=== PATIENT | female | born 1990 | race Caucasian/White ===

== ENCOUNTER 2017-01-17 22:42 | Emergency (ER) | payer BC, OTHER ==
[~2017-01-17] VITALS: Ht 172.7 cm; Wt 124.7 kg
[~2017-01-17 22:42] MED LIST: /AUGM25TA OR; VICO5TAB OR
[2017-01-17 22:43] VITALS: BP 163/90
[2017-01-17] MEDS ORDERED: AMOX875T (22:52)
[2017-01-17] MEDS ORDERED: OMEP20CA3 (22:52)
[2017-01-17] MEDS ORDERED: LEVOTAB10 (22:52)
[2017-01-18] MEDS ORDERED: IBUPROFEN 800 MG TAB PO ONE (01:45)
[2017-01-18] MEDS ORDERED: methylPREDNISolone INJ 125 MG/2 ML VIAL (J2930) IM ONE (01:45)
[2017-01-18] MEDS ORDERED: ONDANSETRON 4 MG ORAL DISINTEGRATING TAB (S0181) PO ONE (01:45)
[2017-01-18] MEDS: MAGIC MOUTHWASH SUSPENSION BTL SS PRN ×2 (02:36→02:38)
[2017-01-18] MEDS ORDERED: PRED20TA PO (02:39)
[2017-01-18] MEDS ORDERED: ZOFR4TAB3 PO (02:40)
== END 2017-01-18 02:46 | disposition home or self-care (01) ==
LOC: M ED 01-18 01:08
DX: J02.0 Streptococcal pharyngitis (principal); R50.9 Fever, unspecified; M79.1 Myalgia; Z79.899 Other long term (current) drug therapy; Z88.1 Allergy status to other antibiotic agents
CPT/HCPCS: 87804; 96372; 99281; J2930

== ENCOUNTER → 2017-03-03 | Outpatient (CLI) | payer OTHER ==
[~2017-03-03] MED LIST changes: +AMOX875T; +LEVOTAB10; +OMEP20CA3; +PRED20TA PO; +ZOFR4TAB3 PO
[2017-03-03 11:40] LABS: PROGESTERONE 1.6 NG/ML
== END ==
LOC: M LAB 09:59
PROVIDERS: ATTEND Physician Assistant Medical
DX: Z01.89 Encounter for other specified special examinations (principal)

== ENCOUNTER → 2017-07-15 | Outpatient (CLI) | payer OTHER | LOC: M LAB 00:55 | PROVIDERS: ATTEND Nurse Practitioner Women's Health | DX: R94.7 Abnormal results of other endocrine function studies (principal) ==

== ENCOUNTER → 2017-08-09 | Outpatient (CLI) | payer OTHER | LOC: M LAB 13:47 | PROVIDERS: ATTEND Nurse Practitioner Women's Health | DX: N91.2 Amenorrhea, unspecified (principal) ==

== ENCOUNTER → 2017-08-17 | Outpatient (CLI) | payer OTHER ==
[2017-08-22 00:06] LABS: SEX HORMONE BINDING GLOBULIN 33.2 nmol/L (24.6-122.0)
== END ==
LOC: M LAB 17:28
PROVIDERS: ATTEND Nurse Practitioner Women's Health
DX: E28.2 Polycystic ovarian syndrome (principal)

== ENCOUNTER → 2017-10-15 | Outpatient (REF) | payer OTHER | LOC: M LAB REF 16:46 | PROVIDERS: ATTEND Physician Assistant | DX: R30.0 Dysuria (principal) ==

== ENCOUNTER → 2018-10-02 | Outpatient (CLI) | payer BC | LOC: M SLEEP 20:00 | DX: G47.33 Obstructive sleep apnea (adult) (pediatric) (principal) | CPT/HCPCS: 95810 ==

== ENCOUNTER → 2018-11-04 | Outpatient (CLI) | payer BC ==
[~2018-11-04] MED LIST changes: +ZOFR4TAB14 PO; -ZOFR4TAB3 PO
--- NOTE | 2018-11-16 07:59 | SLEEPCENT ---
DATE OF PROCEDURE: 11/04/2018 ORDERING PROVIDER: DR. Kendra Valle, copy to Drea Abraham NP INTERPRETATION: Nocturnal polysomnography was performed for the titration of pressure therapy in this patient with obstructive sleep apnea syndrome. Apnea-hypopnea index of 13.4. For testing a [employer] full face mask of small size was used, 4 cm of water pressure were applied to the circuit and the lights were extinguished. 8 hours and 26 minutes of data were reviewed. There were 458 minutes of sleep identified. Sleep latency was normal at 10 minutes. Rapid eye movement (REM) latency was delayed at 126 minutes. Sleep architecture improved with optimal pressure therapy. There were four REM cycles noted. Overall sleep efficiency was 92%. The electrocardiogram showed a sinus rhythm with an average heart rate of 66 beats per minute. EEG showed fairly normal waveforms for awake and sleep. Respiratory events were best palliated with CPAP at a pressure of +7 and remaining measures of sleep physiology were normal. IMPRESSION: Obstructive sleep apnea syndrome (G47.33) RECOMMENDATIONS: Nightly use of pressure therapy 7 cm of water.
== END ==
LOC: M SLEEP 19:35
PROVIDERS: ATTEND Internal Medicine Pulmonary Disease
DX: G47.33 Obstructive sleep apnea (adult) (pediatric) (principal)

== ENCOUNTER 2018-12-16 12:03 | Emergency (ER) | payer BC, OTHER ==
[~2018-12-16] VITALS: Ht 175.3 cm; Wt 134.1 kg
[2018-12-16] MEDS ORDERED: prenatal PO (12:20)
[2018-12-16] MEDS ORDERED: LABE10TAB PO (12:20)
[2018-12-16] MEDS ORDERED: PROAAER10 PO (12:20)
[2018-12-16] MEDS ORDERED: PROG100C PO (12:20)
[2018-12-16] MEDS ORDERED: OMEP40CA2 PO (12:20)
[2018-12-16 13:37] LABS: BASO # 0.1 10^3/uL (0.0-0.2); BASO % 0.3 % (0.0-1.0); EOS # 0.1 10^3/uL (0.0-0.50); EOS % 0.8 % (0.0-3.0); HEMATOCRIT 37.7 % (36.0-47.0); HEMOGLOBIN 11.9 g/dl (12.0-15.5); LYMPH # 1.9 10^3/uL (1.5-6.5); LYMPH % 12.5 % (24.0-44.0); MEAN CORPUSCULAR HEMOGLOBIN 28.7 pg (27.0-33.0); MEAN CORPUSCULAR HGB CONC 31.6 g/dl (32.0-36.5); MEAN CORPUSCULAR VOLUME 90.8 fl (80.0-96.0); MONO # 0.9 10^3/uL (0.0-0.8); MONO % 6.1 % (0.0-5.0); NEUTROPHILS % 79.7 % (36.0-66.0); PLATELET COUNT, AUTOMATED 304 10^3/uL (150-450); RED BLOOD COUNT 4.15 10^6/uL (4.00-5.40); WHITE BLOOD COUNT 15.1 10^3/uL (4.0-10.0)
--- NOTE | 2018-12-16 14:40 | REP ---
PELVIC ULTRASOUND: Real-time sonographic evaluation of the pelvis was performed utilizing transabdominal and endovaginal technique. The uterus measures 8.0 x 3.9 x 5.0 cm. Endometrial thickness is 20 mm with tiny cystic areas seen in the endometrial echo complex. There is no gestational sac seen in the endometrial canal. Right ovary measures 2.6 x 1.8 x 1.8 cm and left ovary 3.4 x 2.6 x 2.7 cm. A complex cystic structure in the left ovary may represent a complex corpus luteum, 2.1 x 1.5 x 1.6 cm. There is no torsion of the either ovary, resistive index right ovary 0.51 and left ovary 0.59. Tubular structure above the left ovary could represent a hydrosalpinx. Differential diagnosis would include very early intrauterine , missed AB or ectopic , suggest correlation with serial quantitaive beta HCG values and followup ultrasound as necessary. Electronically Signed by Dhaval Cummins MD 12/16/2018 04:03 P
[2018-12-16 15:10] VITALS: BP 150/89
== END 2018-12-16 15:27 | disposition home or self-care (01) ==
LOC: M ED 12:03 → EDBD 12:03 → M ED 15:27
DX: O9A.211 Injury, poisoning and certain other consequences of external causes complicating pregnancy, first trimester (principal); S40.012A Contusion of left shoulder, initial encounter; V49.40XA Driver injured in collision with unspecified motor vehicles in traffic accident, initial encounter; Y92.410 Unspecified street and highway as the place of occurrence of the external cause; O10.911 Unspecified pre-existing hypertension complicating pregnancy, first trimester; O99.341 Other mental disorders complicating pregnancy, first trimester; F41.9 Anxiety disorder, unspecified; Z3A.01 Less than 8 weeks gestation of pregnancy; Z88.1 Allergy status to other antibiotic agents; Z79.899 Other long term (current) drug therapy

== ENCOUNTER → 2018-12-18 | Outpatient (REF) | payer OTHER ==
[~2018-12-18] MED LIST changes: +LABE10TAB PO; +OMEP40CA2 PO; +PROAAER10 PO; +PROG100C PO; +prenatal PO
== END ==
LOC: M LAB REF 11:30
PROVIDERS: ATTEND Emergency Medicine
DX: N93.9 Abnormal uterine and vaginal bleeding, unspecified (principal)

== ENCOUNTER → 2018-12-20 | Outpatient (REF) | payer BC | LOC: M LAB REF 13:19 | DX: O36.80X0 Pregnancy with inconclusive fetal viability, not applicable or unspecified (principal) ==

== ENCOUNTER → 2019-01-16 | Outpatient (REF) | payer BC ==
[2019-01-16 19:18] LABS: HEMOGLOBIN 11.6 g/dl (12.0-15.5); MEAN CORPUSCULAR HEMOGLOBIN 28.5 pg (27.0-33.0); MEAN CORPUSCULAR HGB CONC 32.2 g/dl (32.0-36.5); MEAN CORPUSCULAR VOLUME 88.5 fl (80.0-96.0); PLATELET COUNT, AUTOMATED 286 10^3/uL (150-450); RED BLOOD COUNT 4.07 10^6/uL (4.00-5.40)
[2019-01-16 19:49] LABS: HEMOGLOBIN A1c 5.2 %
[2019-01-16 20:29] LABS: ALBUMIN 3.5 GM/DL (3.2-5.2); ALT/SGPT 35 U/L (12-78); BILIRUBIN,TOTAL 0.2 MG/DL (0.2-1.0); BLOOD UREA NITROGEN 8 MG/DL (7-18); CALCIUM LEVEL 9.1 MG/DL (8.5-10.1); CARBON DIOXIDE LEVEL 22 MEQ/L (21-32); CHLORIDE LEVEL 104 MEQ/L (98-107); CREATININE FOR GFR 0.65 MG/DL (0.55-1.30); GLOMERULAR FILTRATION RATE > 60.0 (>60); GLUCOSE, FASTING 84 MG/DL (70-100); HCG, SERUM QUANTITATIVE 56833 MIU/ML; POTASSIUM SERUM 3.5 MEQ/L (3.5-5.1); RUBELLA IgG QUALITATIVE IMMUNE (IMMUNE); SODIUM LEVEL 138 MEQ/L (136-145); TOTAL PROTEIN 7.2 GM/DL (6.4-8.2)
[2019-01-16 20:37] LABS: HIV 1&2 SCREEN CENTAUR NEGATIVE (NEGATIVE)
[2019-01-18 09:54] LABS: HEPATITIS C VIRUS ABY INDEX < 0.0 INDEX (<0.8)
== END ==
LOC: M LAB REF 17:00
PROVIDERS: ATTEND Nurse Practitioner Women's Health
DX: Z34.81 Encounter for supervision of other normal pregnancy, first trimester (principal)

== ENCOUNTER → 2019-02-13 | Outpatient (REF) | payer BC ==
[2019-02-13 20:36] LABS: CHLAMYDIA DNA AMPLIFICATION POSITIVE (NEGATIVE); GC DNA AMPLIFICATION NEGATIVE (NEGATIVE)
== END ==
LOC: M LAB REF 16:35
PROVIDERS: ATTEND Nurse Practitioner Women's Health
DX: Z34.81 Encounter for supervision of other normal pregnancy, first trimester (principal)

== ENCOUNTER 2019-03-06 12:06 | Emergency (ER) | payer BC ==
[~2019-03-06] VITALS: Ht 172.7 cm; Wt 133.6 kg
[2019-03-06] MEDS ORDERED: ASPI81TA85 PO (12:16)
[2019-03-06] MEDS ORDERED: SERT25TA85 PO (12:16)
[2019-03-06] MEDS ORDERED: xyzal (12:17)
[2019-03-06] MEDS ORDERED: ACETAMINOPHEN 500 MG TAB PO ONE (13:15)
[2019-03-06 14:24] LABS: BASO % 0.3 % (0.0-1.0); EOS # 0.1 10^3/uL (0.0-0.50); HEMATOCRIT 37.1 % (36.0-47.0); HEMOGLOBIN 11.9 g/dl (12.0-15.5); LYMPH # 1.9 10^3/uL (1.5-6.5); LYMPH % 16.1 % (24.0-44.0); MEAN CORPUSCULAR HEMOGLOBIN 28.5 pg (27.0-33.0); MEAN CORPUSCULAR HGB CONC 32.1 g/dl (32.0-36.5); MEAN CORPUSCULAR VOLUME 88.8 fl (80.0-96.0); MONO # 0.6 10^3/uL (0.0-0.8); MONO % 5.1 % (0.0-5.0); NEUTROPHILS # 9.3 10^3/uL (1.8-7.7); NEUTROPHILS % 77.1 % (36.0-66.0); PLATELET COUNT, AUTOMATED 294 10^3/uL (150-450); RED BLOOD COUNT 4.18 10^6/uL (4.00-5.40); WHITE BLOOD COUNT 12.1 10^3/uL (4.0-10.0)
[2019-03-06 14:49] LABS: BLOOD UREA NITROGEN 6 MG/DL (7-18); CALCIUM LEVEL 9.3 MG/DL (8.5-10.1); CARBON DIOXIDE LEVEL 23 MEQ/L (21-32); CHLORIDE LEVEL 108 MEQ/L (98-107); CREATININE FOR GFR 0.57 MG/DL (0.55-1.30); GLOMERULAR FILTRATION RATE > 60.0 (>60); GLUCOSE, FASTING 85 MG/DL (70-100); POTASSIUM SERUM 3.9 MEQ/L (3.5-5.1); SODIUM LEVEL 138 MEQ/L (136-145)
[2019-03-06] MEDS ORDERED: PHENYLEPHRINE 2.5% OPHTH SOL 2ML OU ONE (15:15)
[2019-03-06] MEDS: MORPHINE 4 MG/ML 1ML VIAL/SYRINGE (J2270) IV ONE ×4 (16:00→20:01)
--- NOTE | 2019-03-06 17:07 | REP ---
MR Brain without contrast HISTORY: Blurred vision COMPARISON : None There are no areas of abnormal signal intensity in the brain. There is no intraparenchymal hemorrhage, infarct, mass or midline shift. The ventricular system is normal in appearance. There is no extra cerebral collection. Mucosal thickening is present in the sphenoid sinus. IMPRESSION: There is no intracranial lesion. Electronically Signed by Tay Baum MD 03/06/2019 04:58 P
--- NOTE | 2019-03-06 17:10 | REP ---
MRA Brain without contrast History: Blurred vision 3-D phase contrast MR angiography was performed with a velocity encoding of 10 cm/sec. There are no filling defects in the deep venous system or dural sinuses. There is narrowing of the distal transverse sinuses. This may represent stenosis versus flow related phenomenon. Impression 1. There is no deep venous thrombosis. 2. There is narrowing of the distal transverse sinuses that may represent stenosis versus flow related phenomenon. Electronically Signed by Tay Baum MD 03/06/2019 05:02 P
[2019-03-06 19:51] VITALS: BP 135/76
--- NOTE | 2019-03-07 11:23 | ER ---
DATE OF CONSULTATION: 03/06/2019 CC: Headaches HPI: 29-year-old female who is 16 weeks who presented to the emergency department today at the request of her marketing secretary who examined her via undilated photography and was noted to have bilateral optic nerve swelling. The patient relates a history of at greater than one week of positional headaches, worse while supine, to the point where she cannot lay flat at all. She also tells me that she has pulsatile tinnitus which has been increasingly worse over the past one week. She denies any transient visual obscurations or visual loss. She denies vomiting. No aura. She has a history of intermittent diplopia as well. She has long standing history of headaches, but these apparently are worse. PAST MEDICAL HISTORY: She is 16 weeks . She has a history of hypertension and was recently increased on her dose of labetalol from 100 to 200 mg twice a day. PAST OCULAR HISTORY: She is a contact lens wearer. Also has prescription eye glasses and uses Artificial Tears as needed. Her blood pressure in the emergency department was 147/92 and 146/78. PHYSICAL EXAMINATION: Corrected glasses visual acuity of 20/25 in the right eye and 20/30 in the left eye. There is no APD. She has mild lateral gaze restriction bilaterally. Color is 10/10. IOP is soft by finger palpation. Slit lamp examination revealed lids, lashes and adnexa within normal limits OU. Conjunctivae and sclerae white and quiet OU. Cornea is clear OU. Lens is clear OU. Dilated fundus exam with a 90 diopter lens with 2% phenylephrine instilled shows a cup-to-disc ratio of 0.1 in the right eye and 0.1 in the left eye with grade IV papilledema with multiple hemorrhages bilaterally. The macula appears flat without macular star and the vessels are within normal limit and the periphery is within normal limit. Imaging: There is no mass. She has a narrow distal transverse sinus and no evidence of a venous thrombosis. ASSESSMENT AND PLAN: 1. Grade IV papilledema. 2. Distal transverse sinus narrowing. This patient needs a stat MRI and MRV, which was already performed and the results are above. Recommend immediate lumbar puncture for a diagnostic and therapeutic effect. After that, treatment per neurology. Consider neurosurgical consultation and even transfer to a tertiary care facility. She should followup with ophthalmology upon discharge for visual field and optic nerve monitoring. The plan was discussed with Dr. Wetterhahn, admitting physician, who recommended the patient be sent to [facility] for immediate assessment and intervention as necessary, which I agreed with. DONATO
--- NOTE | 2019-03-07 20:49 | CR ---
DATE OF CONSULTATION: 03/06/2019 REQUESTING PHYSICIAN: Dr. Dilip Cummins in the Emergency Room. HISTORY OF PRESENT ILLNESS: Angi Garibay was seen in the emergency room. The hospitalist group was consulted for admission. The patient has been sent in by Dr. Anglin her guest relation officer for concern about papilledema. She had been having visual changes and headache that had been aggressively worse since five days ago. Today her vision was at its worst and her headache was at its worst. Dr. Anglin felt papilledema. The patient was sent to the emergency room. Neurology was consulted. MRI of the brain was advised to rule out sphenoid sinus thrombosis. MRI was done and this was not present. The patient was seen in the emergency room by Dr. Rigo Velasquez from ophthalmology. He found Grade 4 papilledema of the affected eye with hemorrhages. He recommended stat lumbar puncture. He had discussed the case and felt that lumbar puncture needed to be done immediately. Unfortunately interventional radiology was not available by the time the MRI came back and a lumbar puncture could not be performed to determine openings pressures and relieve the increased pressure on the optic curve until tomorrow. I am concerned this delay could worsen the outcome. I spoke with Dr. Yang from neurology on three occasions this evening and with the patient's worsening headache, grade 4 papilledema with hemorrhages and unavailability of lumbar puncture at [facility], he recommended transfer to a tertiary care center feeling she [facility] well [facility] Discussed with the patient who was requesting transfer. She said she did not feel comfortable waiting until tomorrow in any case and after hearing about my discussions with opthalmology and neurology, agreed with the transfer. In order to reduce the risk of poor outcome from unrelieved, increased intracranial pressure I have recommended to transfer the patient to a tertiary center where she can have diagnostic and therapeutic lumbar puncture and/or neurosurgical consultation this evening. This has been discussed with the physician's assistant therapy aide (BEN) who picked up the case in the emergency room, as well as Dr. Cummins who is supervising.
== END 2019-03-06 20:02 | disposition short-term general hospital (02) ==
LOC: M ED 12:06
DX: O10.912 Unspecified pre-existing hypertension complicating pregnancy, second trimester (principal); O99.352 Diseases of the nervous system complicating pregnancy, second trimester; G93.2 Benign intracranial hypertension; H47.11 Papilledema associated with increased intracranial pressure; R51 Headache; Z3A.16 16 weeks gestation of pregnancy; Z88.1 Allergy status to other antibiotic agents; Z79.899 Other long term (current) drug therapy; Z79.82 Long term (current) use of aspirin
CPT/HCPCS: 70544; 70551; 80048; 85025; 96374; 96376; 99284; J2270

== ENCOUNTER 2019-03-07 11:45 | Emergency (ER) | payer BC ==
[~2019-03-07] VITALS: Ht 172.7 cm; Wt 134.1 kg
[~2019-03-07 11:45] MED LIST changes: +ASPI81TA85 PO; +SERT25TA85 PO; +xyzal
[2019-03-07] MEDS ORDERED: METOCLOPRAMIDE INJ 10MG/2ML VIAL (J2765) IV ONE (12:15)
[2019-03-07] MEDS ORDERED: NS 1,000 ML IV SCH (12:15)
[2019-03-07] MEDS ORDERED: MORPHINE 2 MG/ML 1ML SYRINGE (J2270) IV ONE (13:30)
[2019-03-07 15:41] LABS: APPEARANCE, CSF CLEAR (CLEAR); COLOR, CSF COLORLESS (COLORLESS); CSF TUBE# CELL CNT TUBE 1
[2019-03-07 15:42] LABS: APPEARANCE, CSF CLEAR (CLEAR); COLOR, CSF COLORLESS (COLORLESS); CSF TUBE# CELL CNT TUBE 4
[2019-03-07 15:50] LABS: SOURCE, BODY FLUID GLUCOSE OTHER; SOURCE, BODY FLUID TOT PROTEIN OTHER; TOTAL PROTEIN, BODY FLUID 21.8 G/DL (NOT ESTABLISHED)
[2019-03-07 17:23] VITALS: BP 128/64
--- NOTE | 2019-03-07 19:06 | REP ---
Lumbar puncture with cerebrospinal fluid manometry and cerebrospinal fluid withdrawal: Fluoroscopic guidance. History: Pseudotumor cerebri with progressive papilledema and progressive ophthalmic findings. Declining vision. Emergency lumbar puncture. Three failed attempts at non fluoroscopically guided lumbar puncture were carried out the previous day. 16 weeks gestation. Procedure: Informed consent was obtained. The nature of the procedure was explained to the patient and its risks including bleeding, infection, injury to neural elements, post spinal tap headache, and scatter radiation to the fetus were discussed. The patient indicated understanding and wished to proceed. The patient was placed prone on the fluoroscopy table with circumferential lower abdominal and pelvic shielding. The patient safety time-out was articulated and agreed upon. The L1-2 interspinous level was localized and confirmed fluoroscopically and the skin was marked dorsally at this level in the midline. The skin was prepped and draped in the usual fashion with benign. 3 ml of 1% lidocaine was utilized for local anesthetic. An 18 gauge 3.5 inch spinal needle was advanced without significant difficulty into the cerebrospinal space at the L1-2 interspinous level. Clear freely flowing cerebrospinal fluid was retrieved. Initial opening pressure was quite high measured by manometry and 54 cm of water. A total of 37 ml of cerebrospinal fluid was withdrawn gently and the manometry was re-measured at 10 cm of water. The needle was withdrawn. Cerebrospinal fluid was submitted to the lab for routine analysis. The patient tolerated procedure well. Impression: Fluoroscopically guided lumbar puncture. CSF manometry documents elevated opening pressure 54 cm of water. 37 ml of cerebrospinal fluid was withdrawn. Closing pressure was normal. Fluoroscopy time was 0.1 minutes. Electronically Signed by Davon Munoz MD 03/07/2019 08:23 P
== END 2019-03-07 17:23 | disposition home or self-care (01) ==
LOC: M ED 11:45
DX: G93.2 Benign intracranial hypertension (principal); J45.909 Unspecified asthma, uncomplicated; I10 Essential (primary) hypertension; Z79.899 Other long term (current) drug therapy; Z79.82 Long term (current) use of aspirin; Z88.8 Allergy status to other drugs, medicaments and biological substances
CPT/HCPCS: 77002; 82945; 84157; 87070; 87205; 89050; 96361; 96374; 99284; J2765

== ENCOUNTER 2019-03-10 09:42 | Emergency (ER) | payer BC ==
[~2019-03-10] VITALS: Ht 172.7 cm; Wt 131.8 kg
[2019-03-10 10:31] LABS: BASO % 0.2 % (0.0-1.0); EOS # 0.1 10^3/uL (0.0-0.50); EOS % 1.1 % (0.0-3.0); HEMATOCRIT 35.7 % (36.0-47.0); LYMPH # 1.9 10^3/uL (1.5-6.5); LYMPH % 20.4 % (24.0-44.0); MEAN CORPUSCULAR HEMOGLOBIN 28.9 pg (27.0-33.0); MEAN CORPUSCULAR HGB CONC 33.6 g/dl (32.0-36.5); MONO # 0.6 10^3/uL (0.0-0.8); MONO % 6.7 % (0.0-5.0); NEUTROPHILS # 6.7 10^3/uL (1.8-7.7); NEUTROPHILS % 71.1 % (36.0-66.0); PLATELET COUNT, AUTOMATED 269 10^3/uL (150-450); RED BLOOD COUNT 4.15 10^6/uL (4.00-5.40); WHITE BLOOD COUNT 9.5 10^3/uL (4.0-10.0)
[2019-03-10] MEDS ORDERED: NS 1,000 ML IV ONE (10:45)
[2019-03-10] MEDS ORDERED: METOCLOPRAMIDE INJ 10MG/2ML VIAL (J2765) IV ONE (10:45)
[2019-03-10 11:02] LABS: ALBUMIN 3.1 GM/DL (3.2-5.2); ALT/SGPT 21 U/L (12-78); BILIRUBIN,TOTAL 0.2 MG/DL (0.2-1.0); BLOOD UREA NITROGEN 5 MG/DL (7-18); CALCIUM LEVEL 9.1 MG/DL (8.5-10.1); CARBON DIOXIDE LEVEL 24 MEQ/L (21-32); CHLORIDE LEVEL 107 MEQ/L (98-107); CREATININE FOR GFR 0.66 MG/DL (0.55-1.30); GLOMERULAR FILTRATION RATE > 60.0 (>60); GLUCOSE, FASTING 97 MG/DL (70-100); POTASSIUM SERUM 3.6 MEQ/L (3.5-5.1); SODIUM LEVEL 138 MEQ/L (136-145); TOTAL PROTEIN 7.8 GM/DL (6.4-8.2)
[2019-03-10 15:02] VITALS: BP 125/73
== END 2019-03-10 15:08 | disposition short-term general hospital (02) ==
LOC: M ED 09:42
DX: O99.89 Other specified diseases and conditions complicating pregnancy, childbirth and the puerperium (principal); G97.1 Other reaction to spinal and lumbar puncture; G93.2 Benign intracranial hypertension; O99.619 Diseases of the digestive system complicating pregnancy, unspecified trimester; O13.9 Gestational [pregnancy-induced] hypertension without significant proteinuria, unspecified trimester; O99.340 Other mental disorders complicating pregnancy, unspecified trimester; Z79.82 Long term (current) use of aspirin; Z79.899 Other long term (current) drug therapy; Z88.1 Allergy status to other antibiotic agents
CPT/HCPCS: 36415; 80053; 85025; 96361; 96374; 99285; J2765

== ENCOUNTER → 2019-04-16 | Outpatient (REF) | payer BC ==
[2019-04-16 10:13] LABS: CREATININE 24 HOUR, URINE 1276.8 MG/24HR (600-1800); CREATININE, URINE 39.9 MG/DL; TOTAL PROTEIN 24 HOUR URINE 268.8 MG/24HR (50-150); URINE TOTAL PROTEIN 8.4 MG/DL (0-12)
== END ==
LOC: M LAB REF 09:39
PROVIDERS: ATTEND Obstetrics & Gynecology
DX: O99.89 Other specified diseases and conditions complicating pregnancy, childbirth and the puerperium (principal)

== ENCOUNTER → 2019-04-17 | Outpatient (CLI) | payer BC ==
[2019-04-17 11:04] LABS: HEMATOCRIT 34.3 % (36.0-47.0); HEMOGLOBIN 11.1 g/dl (12.0-15.5); MEAN CORPUSCULAR HEMOGLOBIN 29.8 pg (27.0-33.0); MEAN CORPUSCULAR HGB CONC 32.4 g/dl (32.0-36.5); MEAN CORPUSCULAR VOLUME 92.2 fl (80.0-96.0); PLATELET COUNT, AUTOMATED 278 10^3/uL (150-450); RED BLOOD COUNT 3.72 10^6/uL (4.00-5.40); WHITE BLOOD COUNT 9.9 10^3/uL (4.0-10.0)
[2019-04-17 11:30] LABS: ALT/SGPT 13 U/L (12-78); BILIRUBIN,TOTAL 0.2 MG/DL (0.2-1.0); CREATININE FOR GFR 0.64 MG/DL (0.55-1.30); GLOMERULAR FILTRATION RATE > 60.0 (>60); GLUCOSE CHALLENGE TEST 1 HOUR 91 MG/DL (LESS THAN 140); LDH LACTATE DEHYDROGENASE 135 U/L (84-246); URIC ACID 3.6 MG/DL (2.6-6.0)
== END ==
LOC: M LAB 09:05
PROVIDERS: ATTEND Obstetrics & Gynecology
DX: O99.89 Other specified diseases and conditions complicating pregnancy, childbirth and the puerperium (principal)

== ENCOUNTER → 2019-04-20 | Outpatient (CLI) | payer BC ==
--- NOTE | 2019-04-21 07:02 | ECHO ---
DATE OF PROCEDURE: 04/20/2019 DATE OF : 1990 AGE: 29 GENDER: Female. HEIGHT: 68 inches. WEIGHT: 287 pounds. BODY SURFACE AREA: 2.38 meters squared . OUTPATIENT REFERRING PHYSICIAN: Dr. Alvarez Flores. INDICATION: Pulmonary hypertension. MEASUREMENTS 2-D Measurements: RV: 4.4 cm LV: 5.2 cm Septum: 1.3 cm Posterior wall: 1.3 cm Aortic root: 2.8 cm LA: 4.3 cm LVEF: 65% Doppler Measurements: AV: 1.49 m/s LVOT: 1.1 m/s LVOT diameter: 2.3 cm MV - E 88 A 67 EA ratio 1.3 Early mitral deceleration time: 176 ms E prime: 7.3 A prime: 10 E/E prime ratio: 12 PV: 1.1 m/s Pulmonary artery acceleration time: 150 ms PASP: 18 mmHg IVC: 2.0 cm COMMENTS: Normal sinus rhythm without intraventricular conduction disturbance. M-mode and two-dimensional echocardiography was performed with pulsed, continuous wave, color flow and tissue Doppler studies. Mild concentric left ventricle hypertrophy with normal wall motion. Mildly dilated left atrium with currently normal estimated left ventricular diastolic function and mean left atrial pressure. Right heart chamber sizes upper limits of normal with normal wall motion and currently normal estimated pulmonary arterial pressure. Normal IVC size and collapse against an elevated central venous pressure. Normal appearing and functioning valvular structures. No apparent intracardiac mass or pericardial effusion. Normal aortic root size. MTDD
== END ==
LOC: M CARPUL 08:10
PROVIDERS: ATTEND Obstetrics & Gynecology
DX: I27.24 Chronic thromboembolic pulmonary hypertension (principal)

== ENCOUNTER → 2019-04-26 | Outpatient (CLI) | payer BC ==
--- NOTE | 2019-04-27 08:20 | ECGEPIP ---
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
== END ==
LOC: M EKG 14:12
PROVIDERS: ATTEND Obstetrics & Gynecology
DX: Z34.82 Encounter for supervision of other normal pregnancy, second trimester (principal); Z3A.00 Weeks of gestation of pregnancy not specified

== ENCOUNTER → 2019-05-29 | Outpatient (CLI) | payer BC ==
[~2019-05-29] MED LIST changes: +ACET50CA PO; +BUTA1CAP PO; +C 50TAB PO; +DIAMOX; +HYDR-4571 PO; +MAPA500T2 PO; +MM S100C PO; +OMEP1CAP73; -OMEP20CA3; -OMEP40CA2 PO; +OMEP40CA97 PO; +ONDA-83 PO; +POTA10TA14 PO; +PREN1CHW6 PO; -PROG100C PO; +PROG1CAP8 PO
[2019-05-29 13:40] LABS: HEMATOCRIT 34.7 % (36.0-47.0); HEMOGLOBIN 11.2 g/dl (12.0-15.5); MEAN CORPUSCULAR HEMOGLOBIN 29.2 pg (27.0-33.0); MEAN CORPUSCULAR HGB CONC 32.3 g/dl (32.0-36.5); MEAN CORPUSCULAR VOLUME 90.4 fl (80.0-96.0); PLATELET COUNT, AUTOMATED 278 10^3/uL (150-450); RED BLOOD COUNT 3.84 10^6/uL (4.00-5.40); WHITE BLOOD COUNT 11.9 10^3/uL (4.0-10.0)
== END ==
LOC: M LAB 11:37
PROVIDERS: ATTEND Obstetrics & Gynecology
DX: Z34.82 Encounter for supervision of other normal pregnancy, second trimester (principal)

== ENCOUNTER → 2019-05-30 | Outpatient (REF) | payer BC ==
[~2019-05-30] MED LIST changes: -ACET50CA PO; -BUTA1CAP PO; -C 50TAB PO; -DIAMOX; -HYDR-4571 PO; -MAPA500T2 PO; -MM S100C PO; -OMEP1CAP73; +OMEP20CA4; +OMEP40CA2 PO; -OMEP40CA97 PO; -ONDA-83 PO; -POTA10TA14 PO; -PREN1CHW6 PO
== END ==
LOC: M LAB REF 12:28
PROVIDERS: ATTEND Obstetrics & Gynecology
DX: Z34.82 Encounter for supervision of other normal pregnancy, second trimester (principal)

== ENCOUNTER 2019-06-25 19:01 | Outpatient (CLI) | payer BC ==
[~2019-06-25] VITALS: Ht 172.7 cm; Wt 131.5 kg
[~2019-06-25 19:01] MED LIST changes: +OMEP1CAP73; -OMEP20CA4; -OMEP40CA2 PO; +OMEP40CA97 PO
[2019-06-25] MEDS ORDERED: PRED20TA PO (22:39)
[2019-06-25] MEDS ORDERED: DIAMOX (22:39)
[2019-06-25] MEDS ORDERED: PREN1CHW6 PO (23:52)
[2019-06-25] MEDS ORDERED: C 50TAB PO (23:52)
[2019-06-25] MEDS ORDERED: ACET50CA PO (23:52)
[2019-06-25] MEDS ORDERED: POTA10TA14 PO (23:52)
--- NOTE | 2019-07-26 10:17 | IPN ---
DATE OF SERVICE: 06/25/2019 Angi is a 29-year-old female who presented to emergency room with complaints of severe headache. She is a known patient with pseudo tumor cerebri who has had multiple spinal tap for this condition. She presented to the emergency room for a spinal tap. She is being followed by neurology, Dr. James's group. She was sent to labor and delivery in an error for monitoring after having a category 1 tracing. Given the patient's prior condition, she was recent back to the emergency room to be evaluated for the possible spinal tap and to be seen by neurology or possibly she transferred out. No further OB intervention was done. She did have a category 1 tracing and was transferred back to the emergency room. This was discussed with the emergency room physician.
[2019-07-30] MEDS ORDERED: ONDA-83 PO (17:17)
[2019-08-08] MEDS ORDERED: MM S100C PO (10:38)
== END 2019-06-25 20:04 | disposition other institution (70) ==
LOC: M LDO 19:01
PROVIDERS: ATTEND Obstetrics & Gynecology
DX: O26.893 Other specified pregnancy related conditions, third trimester (principal); R51 Headache; Z3A.31 31 weeks gestation of pregnancy; Z86.79 Personal history of other diseases of the circulatory system; O99.350 Diseases of the nervous system complicating pregnancy, unspecified trimester; G93.2 Benign intracranial hypertension; Z79.899 Other long term (current) drug therapy
CPT/HCPCS: 59025; G0378; G0463

== ENCOUNTER 2019-06-25 20:02 | Emergency (ER) | payer BC ==
[~2019-06-25] VITALS: Ht 172.7 cm; Wt 131.8 kg
[2019-06-25] MEDS ORDERED: diphenhydrAMINE INJ 50MG/ML VIAL (J1200) IV STA (20:29)
[2019-06-25] MEDS ORDERED: METOCLOPRAMIDE INJ 10MG/2ML VIAL (J2765) IV ONE (20:30)
[2019-06-25 20:55] LABS: HEMATOCRIT 34.5 % (36.0-47.0); MEAN CORPUSCULAR HEMOGLOBIN 29.3 pg (27.0-33.0); MEAN CORPUSCULAR HGB CONC 31.9 g/dl (32.0-36.5); MEAN CORPUSCULAR VOLUME 91.8 fl (80.0-96.0); PLATELET COUNT, AUTOMATED 282 10^3/uL (150-450); RED BLOOD COUNT 3.76 10^6/uL (4.00-5.40); WHITE BLOOD COUNT 15.6 10^3/uL (4.0-10.0)
[2019-06-25 21:17] LABS: ALBUMIN 2.7 GM/DL (3.2-5.2); ALT/SGPT 13 U/L (12-78); BILIRUBIN,DIRECT < 0.1 MG/DL (0.0-0.2); BILIRUBIN,TOTAL 0.1 MG/DL (0.2-1.0); BLOOD UREA NITROGEN 10 MG/DL (7-18); CALCIUM LEVEL 8.5 MG/DL (8.5-10.1); CARBON DIOXIDE LEVEL 19 MEQ/L (21-32); CHLORIDE LEVEL 114 MEQ/L (98-107); CREATININE FOR GFR 0.62 MG/DL (0.55-1.30); GLOMERULAR FILTRATION RATE > 60.0 (>60); GLUCOSE, FASTING 78 MG/DL (70-100); POTASSIUM SERUM 3.6 MEQ/L (3.5-5.1); SODIUM LEVEL 141 MEQ/L (136-145); TOTAL PROTEIN 6.2 GM/DL (6.4-8.2)
[2019-06-25] MEDS ORDERED: DIAMOX (22:39)
[2019-06-25] MEDS ORDERED: PRED20TA PO (22:39)
--- NOTE | 2019-06-25 23:26 | HPEPDOC ---
[facility] Medical History & Physical Vital Signs Vital Signs Date Time Temp Pulse Resp B/P (MAP) Pulse Ox O2 Delivery O2 Flow Rate FiO2 06/25/19 20:37 06/25/19 20:02 97.8 88 16 100 Room Air Laboratory Data Labs 24H Laboratory Tests 2 06/25/19 20:47: Nucleated Red Blood Cells % (auto) 0.0, Anion Gap 8, Glomerular Filtration Rate > 60.0, Calcium Level 8.5, Aspartate Amino Transf (AST/SGOT) 5L, Alanine Aminotransferase (ALT/SGPT) 13, Alkaline Phosphatase 89, Total Bilirubin 0.1L, Direct Bilirubin < 0.1, Total Protein 6.2L, Albumin 2.7L, Albumin/Globulin Ratio 0.77L CBC/BMP Laboratory Tests 06/25/19 20:47 Red Blood Count 3.76 L, Mean Corpuscular Volume 91.8, Mean Corpuscular Hemoglobin 29.3, Mean Corpuscular Hemoglobin Concent 31.9 L, Red Cell Distr ibution Width 13.0 Home Medications Scheduled Acetazolamide (Acetazolamide) 500 Mg Capsule.er, 1,000 MG PO BID Ascorbic Acid (Vitamin C) 500 Mg Tablet, 1,000 MG PO QHS TAKES WITH ACETAZOLAMIDE Omeprazole (Omeprazole) 40 Mg Cap, 40 MG PO DAILY Potassium Chloride (Potassium Chloride) 10 Meq Tablet.er, 10 MEQ PO DAILY Prednisone (Prednisone) 20 Mg Tablet, 20 MG PO TAPER TOMORROW, 06/26/2019 SHE WILL BEGIN THE 10MG DAILY FOR 3 DAYS PORTION OF THE TAPER Vit37/Iron/Folic Acid ([place] Chewable Tablet) 1 Each Tab.chew, 1 TAB PO QHS Allergies Coded Allergies: cefuroxime (Verified Allergy, Intermediate, hives, 03/10/19) CARMINA STOUT MD Jun 25, 2019 23:26
[2019-06-25] MEDS ORDERED: ACET50CA PO (23:52)
[2019-06-25] MEDS ORDERED: POTA10TA14 PO (23:52)
[2019-06-25] MEDS ORDERED: C 50TAB PO (23:52)
[2019-06-25] MEDS ORDERED: PREN1CHW6 PO (23:52)
[2019-06-26 00:59] VITALS: BP 106/58
[2019-07-30] MEDS ORDERED: ONDA-83 PO (17:17)
[2019-08-08] MEDS ORDERED: MM S100C PO (10:38)
== END 2019-06-26 01:02 | disposition short-term general hospital (02) ==
LOC: M ED 20:02
DX: O26.893 Other specified pregnancy related conditions, third trimester (principal); R51 Headache; Z3A.31 31 weeks gestation of pregnancy; Z86.79 Personal history of other diseases of the circulatory system; Z79.899 Other long term (current) drug therapy; Z88.1 Allergy status to other antibiotic agents
CPT/HCPCS: 80048; 80076; 85027; 96374; 96375; 99284; J1200; J2765

== ENCOUNTER → 2019-07-28 | Outpatient (REF) | payer BC ==
[~2019-07-28] MED LIST changes: +ACET50CA PO; +BUTA1CAP PO; +C 50TAB PO; +DIAMOX; +MAPA500T2 PO; +MM S100C PO; -OMEP1CAP73; +OMEP20CA4; +OMEP40CA2 PO; -OMEP40CA97 PO; +ONDA4TAB5 PO; +POTA10TA14 PO; +PREN1CHW6 PO
[2019-07-28 12:55] LABS: HEMATOCRIT 36.8 % (36.0-47.0); HEMOGLOBIN 11.8 g/dl (12.0-15.5); MEAN CORPUSCULAR HEMOGLOBIN 28.2 pg (27.0-33.0); MEAN CORPUSCULAR HGB CONC 32.1 g/dl (32.0-36.5); PLATELET COUNT, AUTOMATED 272 10^3/uL (150-450); RED BLOOD COUNT 4.18 10^6/uL (4.00-5.40); WHITE BLOOD COUNT 11.6 10^3/uL (4.0-10.0)
[2019-07-28 13:30] LABS: TOTAL PROTEIN,RANDOM URINE 22.6 MG/DL (0.0-12.0)
[2019-07-28 13:35] LABS: ALT/SGPT 13 U/L (12-78); BILIRUBIN,TOTAL 0.2 MG/DL (0.2-1.0); CREATININE FOR GFR 0.67 MG/DL (0.55-1.30); GLOMERULAR FILTRATION RATE > 60.0 (>60); LDH LACTATE DEHYDROGENASE 134 U/L (84-246); URIC ACID 4.5 MG/DL (2.6-6.0)
== END ==
LOC: M LAB REF 12:32
PROVIDERS: ATTEND Obstetrics & Gynecology
DX: O09.893 Supervision of other high risk pregnancies, third trimester (principal); Z3A.00 Weeks of gestation of pregnancy not specified

== ENCOUNTER → 2019-07-28 | Outpatient (REF) | payer BC ==
[~2019-07-28] MED LIST changes: -MM S100C PO
== END ==
LOC: M LAB REF 12:14
PROVIDERS: ATTEND Obstetrics & Gynecology
DX: O09.893 Supervision of other high risk pregnancies, third trimester (principal); Z3A.00 Weeks of gestation of pregnancy not specified

== ENCOUNTER → 2019-07-29 | Outpatient (REF) | payer BC ==
[~2019-07-29] MED LIST changes: +MM S100C PO
[2019-07-29 12:10] LABS: CREATININE 24 HOUR, URINE 1778.7 MG/24HR (600-1800); CREATININE, URINE 46.2 MG/DL; URINE TOTAL PROTEIN 9.5 MG/DL (0-12)
[2019-07-31 06:33] LABS: TOTAL PROTEIN 24 HOUR URINE 365.7 MG/24HR (50-150)
== END ==
LOC: M LAB 07-28 11:00
PROVIDERS: ATTEND Obstetrics & Gynecology
DX: O09.893 Supervision of other high risk pregnancies, third trimester (principal); Z3A.00 Weeks of gestation of pregnancy not specified; I10 Essential (primary) hypertension

== ENCOUNTER 2019-07-30 14:46 | Outpatient (CLI) | payer BC ==
[~2019-07-30] VITALS: Ht 172.7 cm; Wt 132.8 kg
[~2019-07-30 14:46] MED LIST changes: -BUTA1CAP PO; -MAPA500T2 PO; -MM S100C PO; -ONDA4TAB5 PO
[2019-07-30 15:08] VITALS: BP 128/83
[2019-07-30] MEDS ORDERED: MAPA500T2 PO (15:16)
[2019-07-30 15:22] VITALS: BP 121/75
[2019-07-30] MEDS ORDERED: FIORICET TAB PO ONE (15:30)
[2019-07-30] MEDS ORDERED: ONDANSETRON 4 MG TAB (S0181) PO ONE (15:30)
[2019-07-30 15:49] LABS: HEMATOCRIT 35.1 % (36.0-47.0); HEMOGLOBIN 11.1 g/dl (12.0-15.5); MEAN CORPUSCULAR HEMOGLOBIN 28.5 pg (27.0-33.0); MEAN CORPUSCULAR HGB CONC 31.6 g/dl (32.0-36.5); MEAN CORPUSCULAR VOLUME 90.2 fl (80.0-96.0); PLATELET COUNT, AUTOMATED 238 10^3/uL (150-450); RED BLOOD COUNT 3.89 10^6/uL (4.00-5.40); WHITE BLOOD COUNT 9.5 10^3/uL (4.0-10.0)
[2019-07-30 15:51] VITALS: BP 116/62
[2019-07-30 16:20] LABS: ALBUMIN 2.4 GM/DL (3.2-5.2); ALT/SGPT 11 U/L (12-78); BILIRUBIN,TOTAL 0.2 MG/DL (0.2-1.0); BLOOD UREA NITROGEN 6 MG/DL (7-18); CALCIUM LEVEL 8.7 MG/DL (8.5-10.1); CARBON DIOXIDE LEVEL 20 MEQ/L (21-32); CHLORIDE LEVEL 114 MEQ/L (98-107); CREATININE FOR GFR 0.62 MG/DL (0.55-1.30); GLOMERULAR FILTRATION RATE > 60.0 (>60); GLUCOSE, FASTING 78 MG/DL (70-100); LDH LACTATE DEHYDROGENASE 122 U/L (84-246); POTASSIUM SERUM 3.6 MEQ/L (3.5-5.1); SODIUM LEVEL 142 MEQ/L (136-145); TOTAL PROTEIN 5.9 GM/DL (6.4-8.2); URIC ACID 4.2 MG/DL (2.6-6.0)
[2019-07-30 16:21] VITALS: BP 108/61
[2019-07-30 16:31] LABS: AMPHETAMINES URINE REFLEX NEGATIVE (NEGATIVE); BARBITURATES URINE REFLEX NEGATIVE (NEGATIVE); BENZODIAZEPINES URINE REFLEX NEGATIVE (NEGATIVE); CANNABINOIDS URINE REFLEX NEGATIVE (NEGATIVE); COCAINE METABOLITE URINE REFLE NEGATIVE (NEGATIVE); METHADONE URINE REFLEX NEGATIVE (NEGATIVE); OPIATES URINE REFLEX NEGATIVE (NEGATIVE); PHENCYCLIDINE URINE REFLEX NEGATIVE (NEGATIVE)
[2019-07-30 16:51] VITALS: BP 101/62
[2019-07-30] MEDS ORDERED: BUTA1CAP PO (17:16)
[2019-07-30] MEDS ORDERED: ONDA4TAB5 PO (17:17)
[2019-08-08] MEDS ORDERED: MM S100C PO (10:38)
== END 2019-07-30 17:31 | disposition home or self-care (01) ==
LOC: M LDO 14:46
PROVIDERS: ATTEND Obstetrics & Gynecology
DX: O26.893 Other specified pregnancy related conditions, third trimester (principal); R51 Headache; Z86.011 Personal history of benign neoplasm of the brain; Z3A.36 36 weeks gestation of pregnancy

== ENCOUNTER → 2019-08-01 | Outpatient (REF) | payer BC ==
[~2019-08-01] MED LIST changes: +BUTA1CAP PO; +MAPA500T2 PO; +MM S100C PO; +ONDA4TAB5 PO
== END ==
LOC: M LAB REF 11:54
PROVIDERS: ATTEND Obstetrics & Gynecology
DX: O09.893 Supervision of other high risk pregnancies, third trimester (principal); Z3A.00 Weeks of gestation of pregnancy not specified

== ENCOUNTER 2019-08-15 05:15 | Inpatient (IN) | payer BC ==
[~2019-08-15] VITALS: Ht 172.7 cm; Wt 131.5 kg
[2019-08-15] VITALS (7 sets, daily range): BP systolic 99–137; BP diastolic 54–75
[2019-08-15] MEDS ORDERED: LACTATED RINGER'S 1000 ML IV STA (05:34)
[2019-08-15] MEDS ORDERED: LR 1,000 ML IV SCH ×2 (05:34→09:45)
[2019-08-15] MEDS ORDERED: BICITRA 30ML SOLN UDC PO ONE (05:45)
[2019-08-15] MEDS ORDERED: ceFAZolin SOD 2 GM in IV 1 EA IV ONE (05:45)
[2019-08-15 06:15] LABS: HEMATOCRIT 36.5 % (36.0-47.0); HEMOGLOBIN 11.9 g/dl (12.0-15.5); MEAN CORPUSCULAR HEMOGLOBIN 28.9 pg (27.0-33.0); MEAN CORPUSCULAR HGB CONC 32.6 g/dl (32.0-36.5); MEAN CORPUSCULAR VOLUME 88.6 fl (80.0-96.0); PLATELET COUNT, AUTOMATED 262 10^3/uL (150-450); RED BLOOD COUNT 4.12 10^6/uL (4.00-5.40); WHITE BLOOD COUNT 11.6 10^3/uL (4.0-10.0)
[2019-08-15 06:40] LABS: ALT/SGPT 12 U/L (12-78); BILIRUBIN,TOTAL 0.2 MG/DL (0.2-1.0); CREATININE FOR GFR 0.66 MG/DL (0.55-1.30); GLOMERULAR FILTRATION RATE > 60.0 (>60); LDH LACTATE DEHYDROGENASE 129 U/L (84-246); URIC ACID 4.6 MG/DL (2.6-6.0)
[2019-08-15] MEDS ORDERED: AMPICILLIN SOD 2 GM in D5W MINI-BAG PLUS 100 ML IV ONE (07:15)
[2019-08-15] MEDS ORDERED: OXYTOCIN INJ 10 UNITS/ML VIAL (J2590) As Ordered ONE (07:22)
[2019-08-15] MEDS ORDERED: ePHEDrine SULFATE 25 MG/5 ML(5MG/ML) SYRINGE As Ordered ONE (08:10)
[2019-08-15] MEDS ORDERED: KETOROLAC 60 MG/2 ML VIAL (J1885) As Ordered ONE (08:10)
[2019-08-15] MEDS ORDERED: ONDANSETRON 4MG/2ML VIAL (J2405) As Ordered ONE (08:10)
[2019-08-15 08:15] LABS: CORD GAS ABE V -7.2; CORD GAS HCO3 V 18.4 MEQ/L; CORD GAS O2 SAT V 56.2 %; CORD GAS PCO2 V 37.5 mmHg; CORD GAS PH V 7.308 UNITS; CORD GAS PO2 V 25.6 mmHg; CORD GAS SBC V 17.8 MEQ/L; CORD GAS TCO2 V 19.5 MEQ/L
[2019-08-15 08:16] LABS: CORD GAS ABE A -8.6; CORD GAS HCO3 A 20.6 MEQ/L; CORD GAS O2 SAT A 43.5 %; CORD GAS PCO2 A 58.6 mmHg; CORD GAS PH A 7.163 UNITS; CORD GAS PO2 A 24.3 mmHg; CORD GAS SBC A 16.5 MEQ/L; CORD GAS TCO2 A 22.4 MEQ/L
[2019-08-15] MEDS ORDERED: OXYTOCIN DRIP 30 UNITS in IV 1 EA IV SCH (08:36)
[2019-08-15] MEDS ORDERED: RHOGAM 300 MCG (1500 IU) INJ (J2790) IM SCH (08:45)
[2019-08-15] MEDS ORDERED: NORCO, ANEXSIA 5/325MG TABLET (HYDROcodone/ACETAMINOPHEN) PO PRN (08:45)
[2019-08-15] MEDS ORDERED: MOM 30ML SUSPENSION UDC PO PRN (08:45)
[2019-08-15] MEDS ORDERED: MEASLES,MUMPS,RUBELLA VACCINE INJ (MMR-II) (90707) SC SCH (08:45)
[2019-08-15] MEDS: DOCUSATE SODIUM 100 MG CAP PO SCH ×2 (09:00→20:46)
[2019-08-15] MEDS: PRENATAL VITAMINS CHEWABLE TABLET PO SCH (09:00)
[2019-08-15] MEDS ORDERED: METOCLOPRAMIDE INJ 10MG/2ML VIAL (J2765) IV PRN (09:45)
[2019-08-15] MEDS ORDERED: fentaNYL 100 MCG/2 ML INJECTION (J3010) IV PRN (09:45)
[2019-08-15] MEDS ORDERED: PERCOCET 5MG/325MG TAB PO PRN (09:45)
[2019-08-15] MEDS ORDERED: MEPERIDINE INJ 25 MG/ML VIAL (J2175) IV PRN (09:45)
[2019-08-15] MEDS ORDERED: ONDANSETRON 4MG/2ML VIAL (J2405) IV PRN (09:45)
--- NOTE | 2019-08-15 10:05 | RO ---
DATE OF PROCEDURE: 08/15/2019 Angi is a 29-year-old female, who is a 2, para 0-0-1-0, approximately 39 weeks gestation, who is being admitted for primary section. The patient has a history of pseudotumor cerebri, has had to have multiple spinal tap as well as the baby being breech presentation. After extensive counseling in the office a decision was made to proceed with a primary section. PREOPERATIVE DIAGNOSES: 1. Term . 2. Pseudotumor with a history of migraine headache status post multiple spinal tap. 3. Breech presentation. 4. The patient requests delivery via primary section. POSTOPERATIVE DIAGNOSES: 1. Term . 2. Pseudotumor with a history of migraine headache status post multiple spinal tap. 3. Breech presentation. 4. The patient requests delivery via primary section. PROCEDURE: 1. Primary section. 2. Breech extraction. SURGEON: Dr. Flores NEMATOLOGIST: Yolette Mena CNM ANESTHESIA: Spinal. COMPLICATIONS: None. ESTIMATED BLOOD LOSS: 500 mL. FINDINGS: Male infant in lilo breech position. 8/9. weight 7 pounds 9 ounces. Normal-appearing ovaries and tubes. Normal uterus. PROCEDURE: After obtaining informed consent. the patient was taken to the operating room where spinal anesthetic was found to be adequate. She was then draped and prepped in usual sterile fashion in the supine position. With the help of my anesthetic assistant Yolette Mena a Pfannenstiel incision was made. This was carried down to the fascia. Fascia was incised in midline fashion and was carried through laterally. Superior aspect of the fascia was then grasped with Eleazar clamps, tented off and dissected off the rectus muscle sharply. The inferior aspect was dissected off in a similar fashion. Rectus muscles in midline fashion. Perineum identified. Perineal cavity entered bluntly. Superior and inferior dissection of the peritoneum was then done with good visualization of the bladder. At this point, a Mobius skin retractor was placed. A low-transverse uterine incision was made. Infant was delivered in atraumatic fashion. Nose and mouth bulb suctioned. Cord doubly clamped and cut, and infant was handed over to the waiting warmer. Cord blood and cord gas were sent. Placenta removed manually. Uterus cleared of all clot and debris and uterine incision was then repaired in two separate layers of #0 Vicryl sutures. All superficial bleeders was coagulated and the skin was reapproximated in a subcuticular fashion using #3-0 Vicryl on a Bharath. Steri-Strips placed. The patient tolerated procedure well. She was then transferred to recovery room in stable condition.
[2019-08-15] MEDS ORDERED: NORCO, ANEXSIA 5/325MG TABLET (HYDROcodone/ACETAMINOPHEN) As Ordered ONE (10:07)
[2019-08-15] MEDS: NORCO, ANEXSIA 5/325MG TABLET (HYDROcodone/ACETAMINOPHEN) PO PRN ×3 (10:10→18:34)
[2019-08-15] MEDS ORDERED: OXYTOCIN 30 UNITS IN 0.9% NaCl 500ML IV BAG (J2590) As Ordered ONE (10:12)
[2019-08-15] MEDS: KETOROLAC 30 MG/ML VIAL (J1885) IV SCH ×2 (14:27→20:46)
[2019-08-15] MEDS: ASCORBIC ACID 500 MG TAB PO SCH (22:14)
[2019-08-15] MEDS: AcetaZOLAMIDE 500 MG ER CAP PO SCH (22:14)
[2019-08-16] MEDS: NORCO, ANEXSIA 5/325MG TABLET (HYDROcodone/ACETAMINOPHEN) PO PRN ×5 (00:43→22:32)
[2019-08-16] MEDS: KETOROLAC 30 MG/ML VIAL (J1885) IV SCH (02:05)
[2019-08-16 02:10] VITALS: BP 134/74
[2019-08-16 06:01] VITALS: BP 118/70
[2019-08-16 07:13] LABS: HEMATOCRIT 30.5 % (36.0-47.0); MEAN CORPUSCULAR HEMOGLOBIN 28.6 pg (27.0-33.0); MEAN CORPUSCULAR HGB CONC 31.8 g/dl (32.0-36.5); PLATELET COUNT, AUTOMATED 217 10^3/uL (150-450); RED BLOOD COUNT 3.39 10^6/uL (4.00-5.40); WHITE BLOOD COUNT 10.2 10^3/uL (4.0-10.0)
[2019-08-16 07:22] LABS: HEMOGLOBIN 9.7 g/dl (12.0-15.5)
[2019-08-16] MEDS: POTASSIUM CHLORIDE 10 MEQ SR TABLET PO SCH (08:10)
[2019-08-16] MEDS: AcetaZOLAMIDE 500 MG ER CAP PO SCH ×2 (08:11→21:51)
[2019-08-16] MEDS: DOCUSATE SODIUM 100 MG CAP PO SCH ×2 (08:11→20:58)
[2019-08-16] MEDS: PRENATAL VITAMINS CHEWABLE TABLET PO SCH (08:11)
[2019-08-16] MEDS: OMEPRAZOLE 20 MG CAP PO SCH (08:11)
[2019-08-16 10:00] VITALS: BP 121/79
[2019-08-16] MEDS: IBUPROFEN 800 MG TAB PO SCH ×2 (10:30→17:53)
[2019-08-16 14:00] VITALS: BP 107/50
[2019-08-16 18:00] VITALS: BP 133/74
[2019-08-16] MEDS: ASCORBIC ACID 500 MG TAB PO SCH (21:01)
[2019-08-16 22:00] VITALS: BP 117/72
[2019-08-16] MEDS ORDERED: BISACODYL 10 MG SUPP PR PRN (22:00)
[2019-08-17] MEDS: IBUPROFEN 800 MG TAB PO SCH ×2 (01:48→10:00)
[2019-08-17 06:05] VITALS: BP 113/59
[2019-08-17] MEDS ORDERED: HYDR-4571 PO (08:14)
[2019-08-17] MEDS ORDERED: DOCUSATE SODIUM 100 MG CAP PO SCH (09:00)
[2019-08-17] MEDS: OMEPRAZOLE 20 MG CAP PO SCH (09:00)
[2019-08-17] MEDS: AcetaZOLAMIDE 500 MG ER CAP PO SCH (09:24)
[2019-08-17] MEDS: POTASSIUM CHLORIDE 10 MEQ SR TABLET PO SCH (09:25)
[2019-08-17] MEDS: PRENATAL VITAMINS CHEWABLE TABLET PO SCH (09:25)
== END 2019-08-17 11:00 | disposition home or self-care (01) | DRG 540 ==
LOC: M LDI 05:15 → M OBS 11:00
PROVIDERS: ADMIT Obstetrics & Gynecology; ATTEND Obstetrics & Gynecology
PROC: 10D00Z1 Extraction of Products of Conception, Low, Open Approach (ICD-10-PCS; principal; 2019-08-15 07:30)
DX: O32.1XX0 Maternal care for breech presentation, not applicable or unspecified (principal); Z3A.39 39 weeks gestation of pregnancy; G93.2 Benign intracranial hypertension; O99.354 Diseases of the nervous system complicating childbirth; Z37.0 Single live birth

== ENCOUNTER 2020-01-12 13:20 | Emergency (ER) | payer BC ==
[~2020-01-12] VITALS: Ht 172.7 cm; Wt 126.0 kg
[~2020-01-12 13:20] MED LIST changes: +HYDR-4571 PO; +OMEP1CAP73; -OMEP20CA4; -OMEP40CA2 PO; +OMEP40CA97 PO; +ONDA-83 PO; -ONDA4TAB5 PO
[2020-01-12] MEDS ORDERED: NORL0.35 (13:26)
[2020-01-12] MEDS ORDERED: SUMA100T2 (13:26)
[2020-01-12] MEDS ORDERED: NS 1,000 ML IV ONE (14:00)
[2020-01-12] MEDS ORDERED: METOCLOPRAMIDE INJ 10MG/2ML VIAL (J2765) IV ONE (14:00)
[2020-01-12] MEDS ORDERED: diphenhydrAMINE INJ 50MG/ML VIAL (J1200) IV ONE (14:00)
[2020-01-12] MEDS ORDERED: KETOROLAC 30 MG/ML VIAL (J1885) IV ONE (14:00)
[2020-01-12 14:36] LABS: BASO % 0.5 % (0.0-1.0); EOS # 0.2 10^3/uL (0.0-0.5); EOS % 2.4 % (0.0-3.0); HEMATOCRIT 40.8 % (36.0-47.0); LYMPH # 1.9 10^3/uL (1.5-5.0); LYMPH % 24.7 % (24.0-44.0); MEAN CORPUSCULAR HGB CONC 31.9 g/dl (32.0-36.5); MEAN CORPUSCULAR VOLUME 87.7 fl (80.0-96.0); MONO # 0.6 10^3/uL (0.0-0.8); MONO % 7.2 % (0.0-5.0); NEUTROPHILS # 5.1 10^3/uL (1.5-8.5); NEUTROPHILS % 64.9 % (36.0-66.0); PLATELET COUNT, AUTOMATED 264 10^3/uL (150-450); RED BLOOD COUNT 4.65 10^6/uL (4.00-5.40); WHITE BLOOD COUNT 7.8 10^3/uL (4.0-10.0)
[2020-01-12 16:05] VITALS: BP 117/67
== END 2020-01-12 16:12 | disposition home or self-care (01) ==
LOC: M ED 13:20
DX: G43.909 Migraine, unspecified, not intractable, without status migrainosus (principal); I10 Essential (primary) hypertension; J45.909 Unspecified asthma, uncomplicated; F41.9 Anxiety disorder, unspecified; F32.9 Major depressive disorder, single episode, unspecified; K21.9 Gastro-esophageal reflux disease without esophagitis; G93.2 Benign intracranial hypertension; Z79.899 Other long term (current) drug therapy; Z91.018 Allergy to other foods; Z88.8 Allergy status to other drugs, medicaments and biological substances
CPT/HCPCS: 80047; 84702; 85025; 96361; 96374; 96375; 99284; J1200; J1885; J2765

== ENCOUNTER → 2020-04-04 | Outpatient (REF) | payer BC ==
[~2020-04-04] MED LIST changes: +NORL0.35; +SUMA100T2
[2020-04-04 16:53] LABS: AMYLASE 43 U/L (25-115); LIPASE 93 U/L (73-393)
== END ==
LOC: M LAB REF 16:22
PROVIDERS: ATTEND Nurse Practitioner Family
DX: R10.11 Right upper quadrant pain (principal)

== ENCOUNTER → 2020-06-27 | Outpatient (REF) | payer BC ==
[~2020-06-27] MED LIST changes: -ASPI81TA85 PO; +ASPI81TA86 PO
== END ==
LOC: M WUC 09:27
PROVIDERS: ATTEND Physician Assistant
DX: N39.0 Urinary tract infection, site not specified (principal)

== ENCOUNTER → 2020-12-25 | Outpatient (REF) ==
[~2020-12-25] MED LIST changes: +LABE100T4 PO; -LABE10TAB PO
== END ==
LOC: M LABSMTC 09:50
PROVIDERS: ATTEND Pediatrics
DX: Z11.52 Encounter for screening for COVID-19 (principal)

== ENCOUNTER → 2021-02-03 | Outpatient (REF) | LOC: M LABSMTC 12:54 | PROVIDERS: ATTEND Pediatrics | DX: Z11.52 Encounter for screening for COVID-19 (principal) ==

== ENCOUNTER → 2021-02-06 | Outpatient (REF) | LOC: M LABSMTC 12:56 | PROVIDERS: ATTEND Pediatrics | DX: Z11.52 Encounter for screening for COVID-19 (principal) ==

== ENCOUNTER → 2021-03-18 | Outpatient (REF) | payer BC ==
[2021-03-18 18:11] LABS: HEMATOCRIT 43.1 % (36.0-47.0); HEMOGLOBIN 13.8 g/dl (12.0-15.5); MEAN CORPUSCULAR HEMOGLOBIN 29.3 pg (27.0-33.0); MEAN CORPUSCULAR VOLUME 91.5 fl (80.0-96.0); PLATELET COUNT, AUTOMATED 271 10^3/uL (150-450); RED BLOOD COUNT 4.71 10^6/uL (4.00-5.40); WHITE BLOOD COUNT 9.3 10^3/uL (4.0-10.0)
[2021-03-18 18:39] LABS: HCG, SERUM QUANTITATIVE 283 MIU/ML
[2021-03-18 18:55] LABS: HEPATITIS B SURFACE ANTIGEN NEGATIVE (NEGATIVE)
[2021-03-18 19:22] LABS: HEPATITIS C VIRUS ABY INDEX < 0.0 INDEX (<0.8)
[2021-03-18 19:23] LABS: HIV 1&2 SCREEN CENTAUR NEGATIVE (NEGATIVE)
== END ==
LOC: M LAB REF 16:31
PROVIDERS: ATTEND Obstetrics & Gynecology
DX: O36.80X0 Pregnancy with inconclusive fetal viability, not applicable or unspecified (principal)

== ENCOUNTER → 2021-07-29 | Outpatient (REF) | payer BC ==
[~2021-07-29] MED LIST changes: +OMEP40CA4 PO; -OMEP40CA97 PO
== END ==
LOC: M LAB REF 11:10
PROVIDERS: ATTEND Obstetrics & Gynecology
DX: R30.0 Dysuria (principal)

== ENCOUNTER → 2021-08-07 | Outpatient (REF) | payer BC | LOC: M LAB REF 11:32 | PROVIDERS: ATTEND Obstetrics & Gynecology | DX: R30.0 Dysuria (principal) ==

== ENCOUNTER → 2021-08-14 | Outpatient (REF) | payer BC | LOC: M LAB REF 09:49 | PROVIDERS: ATTEND Registered Nurse | DX: E87.6 Hypokalemia (principal) ==

== ENCOUNTER → 2021-09-02 | Outpatient (CLI) | payer BC ==
[2021-09-02 14:29] LABS: HEMATOCRIT 34.2 % (36.0-47.0); HEMOGLOBIN 11.3 g/dl (12.0-15.5); MEAN CORPUSCULAR HEMOGLOBIN 30.5 pg (27.0-33.0); MEAN CORPUSCULAR VOLUME 92.2 fl (80.0-96.0); PLATELET COUNT, AUTOMATED 240 10^3/uL (150-450); RED BLOOD COUNT 3.71 10^6/uL (4.00-5.40); WHITE BLOOD COUNT 9.4 10^3/uL (4.0-10.0)
== END ==
LOC: M LAB 11:59
PROVIDERS: ATTEND Obstetrics & Gynecology
DX: Z34.82 Encounter for supervision of other normal pregnancy, second trimester (principal); Z3A.00 Weeks of gestation of pregnancy not specified

== ENCOUNTER 2021-10-23 15:43 | Outpatient (CLI) | payer BC ==
[~2021-10-23] VITALS: Ht 172.7 cm; Wt 127.2 kg
[2021-10-23] VITALS (7 sets, daily range): BP systolic 112–155; BP diastolic 57–89
[~2021-10-23 15:43] MED LIST changes: -ASPI81CH33 PO; -ONDA4TAB6 PO; -POTA10TA14 PO; +POTA1TAB24 PO
[2021-10-23] MEDS ORDERED: ASPI81CH33 PO (16:23)
[2021-10-23] MEDS ORDERED: HOME MED LIST COMPLETE! XX SCH (16:30)
[2021-10-23 16:44] LABS: TOTAL PROTEIN,RANDOM URINE 17.5 MG/DL (0.0-12.0)
[2021-10-23] MEDS ORDERED: FIORICET TAB PO ONE (16:55)
[2021-10-23 17:08] LABS: BASO % 0.4 % (0.0-1.0); EOS # 0.1 10^3/uL (0.0-0.5); EOS % 0.9 % (0.0-3.0); HEMATOCRIT 33.4 % (36.0-47.0); LYMPH # 2.2 10^3/uL (1.5-5.0); MEAN CORPUSCULAR HGB CONC 32.9 g/dl (32.0-36.5); MONO # 0.7 10^3/uL (0.0-0.8); MONO % 7.1 % (2.0-8.0); NEUTROPHILS # 6.8 10^3/uL (1.5-8.5); PLATELET COUNT, AUTOMATED 220 10^3/uL (150-450); RED BLOOD COUNT 3.67 10^6/uL (4.00-5.40); WHITE BLOOD COUNT 9.8 10^3/uL (4.0-10.0)
[2021-10-23 17:14] LABS: CREATININE,RANDOM URINE 30.3 MG/DL
[2021-10-23 17:32] LABS: ALT/SGPT 14 U/L (12-78); BILIRUBIN,TOTAL 0.2 MG/DL (0.2-1.0); CREATININE FOR GFR 0.53 MG/DL (0.55-1.30); GLOMERULAR FILTRATION RATE > 60.0 (>60); LDH LACTATE DEHYDROGENASE 122 U/L (84-246); URIC ACID 3.5 MG/DL (2.6-6.0)
[2021-10-23] MEDS ORDERED: BETAMETHASONE SOLUSPAN 6MG/ML 5ML VIAL (J0702 PER 3MG) IM ONE (18:30)
[2021-10-23] MEDS ORDERED: ONDA4TAB6 PO (19:19)
== END 2021-10-23 18:55 | disposition home or self-care (01) ==
LOC: M LDO 15:43
PROVIDERS: ATTEND Specialist
DX: O16.3 Unspecified maternal hypertension, third trimester (principal); O14.93 Unspecified pre-eclampsia, third trimester; O99.353 Diseases of the nervous system complicating pregnancy, third trimester; G93.2 Benign intracranial hypertension; Z3A.35 35 weeks gestation of pregnancy
CPT/HCPCS: 36415; 59025; 82247; 82565; 82570; 83615; 84156; 84450; 84460; 84550; 85025; 96372; G0378; G0463; J0702

== ENCOUNTER → 2021-10-23 | Outpatient (REF) | payer BC ==
[~2021-10-23] MED LIST changes: +ASPI81CH33 PO; +ONDA4TAB6 PO; -SUMA100T2; +SUMA100T2 PO
== END ==
LOC: M LAB REF 12:29
PROVIDERS: ATTEND Obstetrics & Gynecology
DX: Z34.83 Encounter for supervision of other normal pregnancy, third trimester (principal); Z36.85 Encounter for antenatal screening for Streptococcus B

== ENCOUNTER 2021-10-24 18:04 | Outpatient (CLI) | payer BC ==
[~2021-10-24] VITALS: Ht 172.7 cm; Wt 126.1 kg
[~2021-10-24 18:04] MED LIST changes: +ASPI81CH33 PO; +ONDA4TAB6 PO; +POTA10TA14 PO; -POTA1TAB24 PO
[2021-10-24] MEDS ORDERED: BETAMETHASONE SOLUSPAN 6MG/ML 5ML VIAL (J0702 PER 3MG) IM ONE (18:15)
[2021-10-24 18:22] VITALS: BP 126/64
[2021-10-24] MEDS ORDERED: HOME MED LIST COMPLETE! XX SCH (18:40)
--- NOTE | 2021-10-24 19:05 | IPNPDOC ---
Text Note Date of Service The patient was seen on 10/24/21. NOTE Subjective: Angi is a 31-year-old female who is 35.3 weeks gestation that was seen in labor and delivery with complaints of a headache and was found to have some elevated blood pressures. Dr. Quiñones started her on IM Betamethasone and she was discharged once her headache improved. She denies any preeclamptic symptoms currently. Denies vaginal bleeding, leaking of fluid or contractions. Reports active movement. Objective: FHR: 130, moderate variability, positive accelerations, no decelerations. [place]: no contractions General: Awake and alert. Relaxing on stretcher. Respiratory: regular rate without use of accessory muscles. Abdomen: soft and not tender with palpation. Assessment: IUP at 35.3 weeks gestation, preeclampsia, betamethasone complete Plan: Patient discharged to home with precautions. She has an appointment on Wednesday at [facility]. Currently doing a 24 hour urine, which will be complete tomorrow morning. Education done on preeclamptic signs, labor signs, changes in movement, and danger signs that need to be reported. VS,Fishbone, I+O VS, Fishbone, I+O Vital Signs Date Time Temp Pulse Resp B/P (MAP) Pulse Ox O2 Delivery O2 Flow Rate FiO2 10/24/21 18:22 98.4 75 126/64 (84) LIANNA ALFARO CNM Oct 24, 2021 19:05
== END 2021-10-24 18:52 | disposition home or self-care (01) ==
LOC: M LDO 18:04
PROVIDERS: ATTEND Advanced Practice Midwife
DX: O16.3 Unspecified maternal hypertension, third trimester (principal); O99.353 Diseases of the nervous system complicating pregnancy, third trimester; R51.9 Headache, unspecified; Z3A.35 35 weeks gestation of pregnancy
CPT/HCPCS: 59025; 96372; G0378; G0463; J0702

== ENCOUNTER → 2021-10-25 | Outpatient (CLI) | payer BC ==
[~2021-10-25] MED LIST changes: +IBUP80TA PO; -POTA10TA14 PO; +POTA1TAB24 PO
[2021-10-25 09:34] LABS: HEMATOCRIT 35.1 % (36.0-47.0); HEMOGLOBIN 11.4 g/dl (12.0-15.5); MEAN CORPUSCULAR HGB CONC 32.5 g/dl (32.0-36.5); MEAN CORPUSCULAR VOLUME 92.4 fl (80.0-96.0); PLATELET COUNT, AUTOMATED 260 10^3/uL (150-450)
[2021-10-25 09:48] LABS: URINE TOTAL PROTEIN 11.7 MG/DL (0-12)
[2021-10-25 09:54] LABS: ALT/SGPT 15 U/L (12-78); BILIRUBIN,TOTAL 0.2 MG/DL (0.2-1.0); CREATININE FOR GFR 0.52 MG/DL (0.55-1.30); GLOMERULAR FILTRATION RATE > 60.0 (>60); LDH LACTATE DEHYDROGENASE 155 U/L (84-246); URIC ACID 3.6 MG/DL (2.6-6.0)
[2021-10-25 11:12] LABS: TOTAL PROTEIN 24 HOUR URINE 327.6 MG/24HR (50-150)
== END ==
LOC: M LAB 08:46
PROVIDERS: ATTEND Obstetrics & Gynecology
DX: O10.913 Unspecified pre-existing hypertension complicating pregnancy, third trimester (principal); Z3A.00 Weeks of gestation of pregnancy not specified

== ENCOUNTER 2021-10-27 10:36 | Inpatient (IN) | payer BC ==
[2021-10-27] VITALS (11 sets, daily range): BP systolic 116–166; BP diastolic 64–99
[~2021-10-27] VITALS: Ht 172.7 cm; Wt 126.0 kg
[2021-10-27] MEDS: acetaZOLAMIDE 250 MG TAB PO SCH (09:00)
[~2021-10-27 10:36] MED LIST changes: -IBUP80TA PO; +POTA10TA14 PO; -POTA1TAB24 PO
--- OUTSIDE RECORDS SUMMARY | 2021-10-27 10:49 | CCD | Continuity of Care Document ---
Author Organization Unknown Address Unknown Phone Unavailable Care Team Providers Care Pulp And Paper Tester Name Role Phone Davina Rasmussen NIELS AUTM [phone] Problems Active Problems Provider Date Palpitations Drea Abraham FNP Onset: 01/29/2013 Infectious mononucleosis BASILIA Ardon Onset: 01/29 Asthma without status asthmaticus Drea Abraham FNP Onset: 01/29/2013 History of idiopathic intracranial hypertension Jannette thompson M.D. 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 Onset: 03/14/2019 Social History Type Date Description Comments Sex Unknown ETOH Use Denies alcohol use 04/20/19 Tobacco Use Start: Unknown Patient has never smoked Allergies and adverse reactions Active Allergies Criticality Reaction | Severity Comments Date Ceftin Unable to assess criticality Rash 10/30/2013 Inactive Allergies NKDA Unable to assess criticality 01/27/2012 Medications Active Medications SIG Qnty Indications Ordering Provide r Date Potassium Chloride ER 10Meq Tablet s ER 1 tab every day 90tabs Karson Guerrero MD 07/29/2021 Vitamin Tablets 1 by mouth every day Karson Guerrero MD 07/24/2021 Vitamin C 1000MG qd Drea Abraham FNP 04/[address] 1 by mouth every day 90caps Karson Guerrero MD 03/26/2017 Levocetirizine Dihydrochloride 5mg Tablets take one by mouth at at bedtime prn Unkno wn Diamox Sequels 500mg Caps ER 12HR 1 PO qd Unknown Acetaminophen 500mg Tablets 2 capsules by mouth Q 8HRS prn Pain Unknown Immunizations CPT Code Status Date Vaccine Lot # [id number] Given 11/19/2009 PPD 66167 Given 03/12/2009 PPD Vital Signs Date Vital Result Comment 07/24/2021 1:41pm BP Systolic 134 mmHg RT Arm BP Diastolic 80 mmHg RT Arm Heart Rate 80 /min Height 68.75 inches 5'8.75" Weight 270.00 lb BMI (Body Mass Index) 40.2 kg/m2 07/05/2020 2:44pm BP Systolic 128 mmHg BP Diastolic 84 mmHg Heart Rate 76 /min Height 68.75 inches 5'8.75" Weight 285.00 lb BMI (Body Mass Index) 42.4 kg/m2 Results Test Acquired Date Facility Test Result H/L Range Note Complete Blood Count 09/02/2021 [facility] enter [address] [place] [address] [phone] White Blood Count 9.4 10 Normal 4.0-10.0 Red Blood Count 3.71 10 Low 4.00-5.40 Hemoglobin 11.3 g/dL Low 12.0-15.5 Hematocrit 34.2 % Low 36.0-47.0 Mean Corpuscular Volume 92.2 fl Normal 80.0-96.0 Mean Corpuscular Hemoglobin 30.5 pg Normal 27.0-33.0 Mean Corpuscular HGB Conc 33.0 g/dL Normal 32.0-36.5 Red Cell Distribution Width 12.6 % Normal 11.5-14.5 Platelet Count, Automated 240 10 Normal 150-450 Nucleated Red Blood Cell % 0.0 % Normal 0-0 Laboratory test finding 09/02/[address] [address] [phone] Glucose Challenge Test 1 Hour 76 mg/dL Normal Le ss Than 140 Laboratory test finding 08/14/2021 [address] [place] [address] [phone] Potassium Serum 3.8 mEq/L Normal 3.5-5.1 Complete Blood Count 07/24/2021 [facility] [employer] [facility] [employer] Mechan[employer]: [place] [address] [phone] WBC 9.8 x10*3/UL 4.1 - 10.9 RBC 3.91 x10*6/UL Low 4.20 - 6.30 Hemoglobin 12.0 g/dL 12.0 - 18.0 Hematocrit 34.0 % Low 37.0 - 51.0 MCV 86.7 fL 80.0 - 97.0 MCH 30.7 pg 26.0 - 32.0 MCHC 35.4 g/dL 31.0 - 38.0 RDW 12.4 % 11.6 - 13.7 PLT 291 x10*3/UL 140 - 440 MPV 8.7 FL 7.8 - 11.0 Lymph % 22.4 % 10.0 - 58.5 Mid % 6.3 % 1.7 - 9.3 Neut % 71.3 % 37.0 - 92.0 Lymph # 2.2 x10*3/UL 0.6 - 4.1 Mid # 0.6 x10*3/UL 0.1 - 0.6 Neut # 7.0 x10*3/UL 2.0 - 7.8 Comprehensive Chem Profile 07/24/2021 [facility] [employer] Equipment Mechanic: Dr Karson Guerrero [place], [place] [id number] [phone] Glucose 90 mg/dL 74 - 99 1 BUN 6 mg/dL Low 7 - 18 Creatinine 0.7 mg/dL 0.6 - 1.3 Sodium 139 mEq/L 136 - 145 2 Potassium 3.1 mEq/L Low 3.5 - 5.1 Chloride 106 mEq/L 98 - 107 Carbon Dioxide 22 mEq/L 21 - 32 Calcium 8.8 mg/dL 8.5 - 10.1 Alk. Phosphatase 64 mg/dL 46 - 116 Total Bilirubin 0.2 mg/dL Low 0.2 - 1.0 Ast (Sgot) 8 U/L Low 15 - 37 Alt (SGPT) 12 U/L 12 - 78 Albumin 2.9 g/dL Low 3.4 - 5.0 Total Protein 7.0 g/dL 6.4 - 8.2 A/G Ratio 0.71 CALC Low 1.00 - 1.90 GFR >= 60 mL/min >60 GFR >= 60 mL/min >60 3 1 100-125 mg/dL PRE-DIABET ES/FASTING >126 mg/dL DIABETES/FASTING 2 NOTE: POTASSIUM,ALBUMIN VERIFIED 3 CHRONIC KIDNEY DISEASE STAGI NG PER NKF STAGE I & II GFR >= 60 NORMAL TO MILDLY DECREASED STAGE III GFR 30-59 MODERATELY DECREASED STAGE IV GFR 15-29 SEVERELY DECREASED STAGE V GFR <15 VERY LITTLE GFR LEFT ESRD GFR <15 ON CLASSROOM MONITOR Procedures Date Code Description Status 08/01/2021 [id number] Diabetic Retinal Eye Exam [facility] 07/24/2021 64482 Est Prevent Med (18-39Yrs) Compl eted 03/13/2019 [id number] Diabetic Retinal Eye Exam [facility] Medical Devices Description No Information Available Encounters Type Date Location Provider Dx Diagnosis Office Visit 07/24/2021 1:40p [facility] Davina flanagan, [facility] Z00.00 Encntr for general adult medical exam w/ o abnormal findings J30.9 Allergic rhinitis, unspecifi ed H47.10 Unspecified papilledema L73.2 Hidradenitis suppurativa I10 Essential (primary) hyperten melba E78.00 Pure hypercholesterolemia, u nspecified Z33.1 state, incidental E66.01 Morbid (severe) obesity due to excess calories Z68.41 Body mass index [BMI] 40.0-4 4.9, adult Z13.89 Encounter for screening for other disorder Assessments Date Code Description Provider 07/24/2021 Z00.00 Encounter for general adult medi trey examination without abno Davina Rasmussen, [facility] 07/24/2021 J30.9 Allergic rhinitis, unspecified J illian Valery, [facility] 07/24/2021 H47.10 Unspecified papilledema Davina Valery, [facility] 07/24/2021 L73.2 Hidradenitis suppurativa Davina Valery, [facility] 07/24/2021 I10 Essential (primary) hypertension Davina Valery, [facility] 07/24/2021 E78.00 Pure hypercholesterolemia, unspe cified Davina Valery, [facility] 07/24/2021 Z33.1 state, incidental Jilli an Valery, [facility] 07/24/2021 E66.01 Morbid (severe) obesity due to e xcess calories Davina Valery, [facility] 07/24/2021 Z68.41 Body mass index [BMI] 40.0-44.9, adult NIELS Morales 07/24/2021 Z13.89 Encounter for screening for othe r disorder NIELS Morales Plan of Treatment Future Appointment(s):* 07/27/2022 10:40 am - NIELS Morales at [facility] 07/24/2021 - NIELS Morales* Z00.00 Encounter for general adult medical examination without abno* Comments:* Normal exam; follows routinely with Dr. Velasquez and Dr. Garcia. Follow up annually and PRNLabs are pending.COVID 19 vaccine discussed and she will be receiving her second dose 08/09. * J30.9 Allergic rhinitis, unspecified* Comments:* Stable on Levocetirizine. * H47.10 Unspecified papilledema* Comments:* Follows with Dr. Velasquez & Dr. Garcia. She is on Diamox. * L73.2 Hidradenitis suppurativa* Comments:* Followed with [facility] derm; has PRN treatment with Clindet wipes and Benzaclin gel. * I10 Essential (primary) hypertension* Comments:* Stable off of medications. CMP pending. Should continue to take BPs outside of the office. * Recommendations:* DASH diet is recommended, regular exercise, and balanced diet with several fresh fruits and vegetables. Weight loss is encouraged and recommended. * E78.00 Pure hypercholesterolemia, unspecified* Comments:* Hold off on checking lipids at this time. Will re-check in one year at EXT annual. She is currently . * Z33.1 state, incidental* Comments:* Following with Dr. Flores EDC is Nov 2021 Continue PNV. * E66.01 Morbid (severe) obesity due to excess calories* Comments:* Making an effort at weight loss with dieting and exercise, although is at this time. * Z68.41 Body mass index [BMI] 40.0-44.9, adult * Z13.89 Encounter for screening for other disorder * All * New Medication:* Vitamin - 1 by mouth every day * Comments:* Follow up in one year with repeat labs at that time.Encouraged balanced diet, 4-5 servings of fresh fruits and vegetables daily. Recommended at least 30 minutes of exercise daily and eight 8 oz. glasses of water daily.SBE monthly.RTC PRN for acute illness. COVID precautions are discussed and social distancing/mask use/ frequent hand washing and sanitizing are encouraged. COVID 19 vaccine discussed and recommended. Functional Status Description No Information Available Mental Status Description No Information Available Referrals Description No Information Available
--- OUTSIDE RECORDS SUMMARY | 2021-10-27 10:49 | CCD | Continuity of Care Document ---
Author Author Angi VELASQUEZ DO Organization Unknown Address [address] [place] [address] Phone [phone] Care Team Providers Care Tree Cutter Name Role Phone Rob Garcia MD AUTM [phone] Marj Rasmussen AUTM [phone] Problems Active Problems Provider Date Benign intracranial hypertension Rigo Velasquez DO Onset : 08/01/2021 Social History Type Date Description Comments Sex Unknown Tobacco Use Start: Unknown Never Smoked Cigarettes Tobacco Use Start: Unknown Patient has never smoked Smoking Status Reviewed: 08/01/21 Patient has never smoked Allergies, Adverse Reactions, Alerts Active Allergies Criticality Reaction | Severity Comments Date Ceftin Unable to assess criticality rash 08/01/2021 Medications Active Medications SIG Qnty Indications Ordering Provide r Date Acetazolamide 250mg Tablets 500mg mouth twice a day start 24 hours before elevation destination Unknown (W/Iron & Fa) 27-0.8mg Tablets Unknown Aspirin 81 Low Dose 81mg Chewtabs 1 by mouth every day Unknown Potassium Chloride Lori ER 10Meq Tablets ER take 1 tablet by mouth evening for hypokalemia Unknown Immunizations Description No Information Available Vital Signs Date Vital Result Comment 08/01/2021 2:19pm Intraocular Pressure Right Eye 17 mmHg Intraocular Pressure Left Eye 16 mmHg RaSeferino ation 02:19 PM Results Description No Information Available Procedures Date Code Description Status 08/01/2021 [id number] Comprehensive Exam New Patient C ompleted Medical Devices Description No Information Available Encounters Type Date Location Provider Dx Diagnosis Office Visit 08/01/2021 2:00p Main Office Rigo Velasquez DO G93. 2 Benign intracranial hypertension Assessments Date Code Description Provider 08/01/2021 G93.2 Benign intracranial hypertension Rigo Velasquez DO Plan of Treatment 08/01/2021 - Rigo Velasquez DO* G93.2 Benign intracranial hypertension* Comments:* Continue Diamox as directed by neurology * Follow up:* December 2021, dilation. Functional Status Description No Information Available Mental Status Description No Information Available Referrals Description No Information Available"
--- OUTSIDE RECORDS SUMMARY | 2021-10-27 10:49 | CCD | Continuity of Care Document ---
Author Author Angi GARCIA M.D. Organization Unknown Address [address] [place] [id number] Phone [phone] Care Team Providers Care Press Operator Apprentice Name Role Phone Karson Guerrero M.D. [facility] [phone] Problems Active Problems Provider Date Chronic tension-type headache Rob Garcia M.D. Onset: 01/2019 Benign intracranial hypertension Rob Garcia M.D. Onset: 03/17/2019 Migraine without aura, not refractory Rob Garcia M.D. 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 Onset: 05/09/2019 Refractory migraine without aura Rob Garcia M.D. Onset: 12/15/2019 Social History Type Date Description Comments Sex Unknown Tobacco Use Start: Unknown Patient has never smoked Allergies, Adverse Reactions, Alerts Active Allergies Criticality Reaction | Severity Comments Date Ceftin Unable to assess criticality 03/17/2019 Medications Active Medications SIG Qnty Indications Ordering Provide r Date Amitriptyline HCL 10mg Tablets take 2 tablets by mouth nightly at bedtime 180tabs Rob Garcia M.D. 07/24/2020 Ibuprofen 800mg Tablets 1 by mouth twice a day as needed for severe headaches 45tabs German Miller 07/24/2020 Sumatriptan Succinate 100mg Tablet s half or 1 tab by mouth onset of headache, may repeat once after 2 hrs. 18tabs Rob Garcia M.D. 12/15/2019 Acetazolamide ER 500mg Caps ER 12H R 1 po bid 180caps Rob Garcia M.D. 04/04/2019 Immunizations Description No Information Available Vital Signs Date Vital Result Comment 03/17/2019 8:31am BP Systolic 125 mmHg BP Diastolic 85 mmHg Heart Rate 74 /min Respiratory Rate 14 /min Height 68 inches 5'8" Weight 285.00 lb BMI (Body Mass Index) 43.3 kg/m2 [place] Body Weight 140 lb Results Description No Information Available Procedures Date Code Description Status 08/06/2021 90845 Office/Outpatient Established Mo d MDM 30-39 Min Completed Medical Devices Description No Information Available Encounters Type Date Location Provider Dx Diagnosis Office Visit 08/06/2021 12:15p Main office - [place] Maggie Miller G43.711 Chronic migraine w/o aura, intractable, w status migrainosus G44.221 Chronic tension-type headach e, intractable G93.2 Benign intracranial hyperten melba Assessments Date Code Description Provider 08/06/2021 G43.711 Chronic migraine wit hout aura, intractable, with status migrainosus Rob Garcia M.D. 08/06/2021 G44.221 Chronic tension-type headache, i ntractable Rob Garcia M.D. 08/06/2021 G93.2 Benign intracranial hypertension Rob Garcia M.D. Plan of Treatment Future Appointment(s):* 02/03/2022 12:15 pm - Rob Garcia M.D. at Main office - [place] Functional Status Description No Information Available Mental Status Description No Information Available Referrals Description No Information Available
--- OUTSIDE RECORDS SUMMARY | 2021-10-27 10:49 | CCD ---
Author Author [facility] Address Unknown Phone Unavailable Care Team Providers Care Sports Recruiter Name Role Phone SYSTEM IN, NOT IN PROVIDER Unavailable Unavailable Faustino Corea MD Unavailable Unavailable Faustino Corea MD Unavailable Unavailable Valery, Davina FREIGHT BRAKE OPERATOR Unavailable Unavailable Valery, Davina FREIGHT BRAKE OPERATOR Unavailable Unavailable Valery, Davina FREIGHT BRAKE OPERATOR Unavailable Unavailable Valery, Davina FREIGHT BRAKE OPERATOR Unavailable Unavailable Valery, Davina FREIGHT BRAKE OPERATOR Unavailable Unavailable Valery, Davina FREIGHT BRAKE OPERATOR Unavailable Unavailable Valery, Davina FREIGHT BRAKE OPERATOR Unavailable Unavailable Valery, Davina FREIGHT BRAKE OPERATOR Unavailable Unavailable Valery, Davina FREIGHT BRAKE OPERATOR Unavailable Unavailable Valery, Davina FREIGHT BRAKE OPERATOR Unavailable Unavailable Valery, Davina FREIGHT BRAKE OPERATOR Unavailable Unavailable Valery, Davina FREIGHT BRAKE OPERATOR Unavailable Unavailable Valery, Davina FREIGHT BRAKE OPERATOR Unavailable Unavailable Valery, Davina FREIGHT BRAKE OPERATOR Unavailable Unavailable Valery, Davina FREIGHT BRAKE OPERATOR Unavailable Unavailable Valery, Davina FREIGHT BRAKE OPERATOR Unavailable Unavailable Valery, Davina FREIGHT BRAKE OPERATOR Unavailable Unavailable Valery, Davina FREIGHT BRAKE OPERATOR Unavailable Unavailable Valery, Davina FREIGHT BRAKE OPERATOR Unavailable Unavailable Valery, Davina FREIGHT BRAKE OPERATOR Unavailable Unavailable Valery, Davina FREIGHT BRAKE OPERATOR Unavailable Unavailable Valery, Davina FREIGHT BRAKE OPERATOR Unavailable Unavailable Valery, Davina FREIGHT BRAKE OPERATOR Unavailable Unavailable Valery, Davina FREIGHT BRAKE OPERATOR Unavailable Unavailable Valery, Davina FREIGHT BRAKE OPERATOR Unavailable Unavailable Valery, Davina FREIGHT BRAKE OPERATOR Unavailable Unavailable Valery, Davina FREIGHT BRAKE OPERATOR Unavailable Unavailable Valery, Davina FREIGHT BRAKE OPERATOR Unavailable Unavailable Valery, Davina FREIGHT BRAKE OPERATOR Unavailable Unavailable Valery, Davina FREIGHT BRAKE OPERATOR Unavailable Unavailable Valery, Davina FREIGHT BRAKE OPERATOR Unavailable Unavailable Valery, Davina FREIGHT BRAKE OPERATOR Unavailable Unavailable Valery, Davina FREIGHT BRAKE OPERATOR Unavailable Unavailable Valery, Davina FREIGHT BRAKE OPERATOR Unavailable Unavailable Valery, Davina FREIGHT BRAKE OPERATOR Unavailable Unavailable Valery, Davina FREIGHT BRAKE OPERATOR Unavailable Unavailable PAWEL L ADRIENNE Unavailable Unavailable AliRob MD Unavailable Unavailable AliRob MD Unavailable Unavailable AliRob MD Unavailable Unavailable AliRob MD Unavailable Unavailable AliRob MD Unavailable Unavailable AliRob MD Unavailable Unavailable AliRob MD Unavailable Unavailable AliRob MD Unavailable Unavailable AliRob MD Unavailable Unavailable AliRob MD Unavailable Unavailable AliRob MD Unavailable Unavailable AliRob MD Unavailable Unavailable AliRob MD Unavailable Unavailable AliRob MD Unavailable Unavailable AliRob MD Unavailable Unavailable AliRob MD Unavailable Unavailable AliRob MD Unavailable Unavailable AliRob MD Unavailable Unavailable Ali Rob Unavailable Unavailable Ali Rob Unavailable Unavailable Ali Rob MD Unavailable Unavailable AliMarilynRob Unavailable Unavailable Ali Rob Unavailable Unavailable AliRob MD Unavailable Unavailable AliRob MD Unavailable Unavailable Ali Rob Unavailable Unavailable AliRob MD Unavailable Unavailable AliRob MD Unavailable Unavailable Ali Rob Unavailable Unavailable Ali Rob Unavailable Unavailable Ali Rob Unavailable Unavailable Ali Rob Unavailable Unavailable AliRob MD Unavailable Unavailable AliRob MD Unavailable Unavailable AliRob MD Unavailable Unavailable AliRob MD Unavailable Unavailable Ali, Rob MD Unavailable Unavailable Ali, Rob MD Unavailable Unavailable Ali, Rob MD Unavailable Unavailable Ali, Rob MD Unavailable Unavailable Ali, Rob MD Unavailable Unavailable Ali, Rob MD Unavailable Unavailable Ali, Rob MD Unavailable Unavailable Ali, Rob MD Unavailable Unavailable Ali, Rob MD Unavailable Unavailable Ali, Rob MD Unavailable Unavailable Ali, Rob MD Unavailable Unavailable Ali, Rob MD Unavailable Unavailable Ali, Rob MD Unavailable Unavailable Ali, Rob MD Unavailable Unavailable Ali, Rob MD Unavailable Unavailable Ali, Rob MD Unavailable Unavailable DAYO K LEO RAMACHANDRAN Unavailable Unavailable DAYO K LEO RAMACHANDRAN Unavailable Unavailable DAYO K LEO RAMACHANDRAN Unavailable Unavailable DAYO, K LEO RAMACHANDRAN Unavailable Unavailable DAYO, K LEO RAMACHANDRAN Unavailable Unavailable DAYO, K LEO RAMACHANDRAN Unavailable Unavailable DAYO K LEO RAMACHANDRAN Unavailable Unavailable DAYO K LEO RAMACHANDRAN Unavailable Unavailable DAYO K LEO RAMACHANDRAN Unavailable Unavailable DAYO K LEO RAMACHANDRAN Unavailable Unavailable DAYO K LEO RAMACHANDRAN Unavailable Unavailable DAYO K LEO RAMACHANDRAN Unavailable Unavailable DAYO K LEO RAMACHANDRAN Unavailable Unavailable Karina OSHEA MD Unavailable Unavailable Karina OSHEA MD Unavailable Unavailable Karina OSHEA MD Unavailable Unavailable DAYO K LEO RAMACHANDRAN Unavailable Unavailable DAYO K LEO RAMACHANDRAN Unavailable Unavailable DAYO K LEO RAMACHANDRAN Unavailable Unavailable DAYO K LEO RAMACHANDRAN Unavailable Unavailable DAYO K LEO RAMACHANDRAN Unavailable Unavailable DAYO K LEO RAMACHANDRAN Unavailable Unavailable Karina OSHEA MD Unavailable Unavailable Karina OSHEA MD Unavailable Unavailable Karina OSHEA MD Unavailable Unavailable Karina OSHEA MD Unavailable Unavailable DAYO K LEO RAMACHANDRAN Unavailable Unavailable DAYO K LEO RAMACHANDRAN Unavailable Unavailable DAYO K LEO RAMACHANDRAN Unavailable Unavailable DAYO K LEO RAMACHANDRAN Unavailable Unavailable Karina OSHEA MD Unavailable Unavailable DAYO K LEO RAMACHANDRAN Unavailable Unavailable Karina OSHEA MD Unavailable Unavailable DAYO K LEO RAMACHANDRAN Unavailable Unavailable DAYO K LEO RAMACHANDRAN Unavailable Unavailable DAYO K LEO RAMACHANDRAN Unavailable Unavailable DAYO K LEO RAMACHANDRAN Unavailable Unavailable DAYO K LEO RAMACHANDRAN Unavailable Unavailable DAYO K LEO RAMACHANDRAN Unavailable Unavailable Karina OSHEA MD Unavailable Unavailable Karina OSHEA MD Unavailable Unavailable Karina OSHEA MD Unavailable Unavailable Karina OSHEA MD Unavailable Unavailable Karina OSHEA MD Unavailable Unavailable DAYO K LEO RAMACHANDRAN Unavailable Unavailable Karina OSHEA MD Unavailable Unavailable Karina OSHEA MD Unavailable Unavailable Karina OSHEA MD Unavailable Unavailable Karina OSHEA MD Unavailable Unavailable DAYO, K LEO MD Unavailable Unavailable DAYO, K LEO MD Unavailable Unavailable DAYO, K LEO MD Unavailable Unavailable DAYO, K LEO MD Unavailable Unavailable DAYO, K LEO MD Unavailable Unavailable DAYO, K LEO MD Unavailable Unavailable DAYO, K LEO MD Unavailable Unavailable DAYO, K LEO MD Unavailable Unavailable DAYO, K LEO MD Unavailable Unavailable DAYO, K LEO MD Unavailable Unavailable SYSTEM, NOT IN PROVIDER Unavailable Unavailable VEA, A CARRILLO DO Unavailable Unavailable EVA, A CARRILLO DO Unavailable Unavailable EVA, A CARRILLO DO Unavailable Unavailable EVA, A CARRILLO DO Unavailable Unavailable EVA, A CARRILLO DO Unavailable Unavailable EVA, A CARRILLO DO Unavailable Unavailable EVA, A CARRILLO DO Unavailable Unavailable EVA, A CARRILLO DO Unavailable Unavailable EVA, A CARRILLO DO Unavailable Unavailable EVA, A CARRILLO DO Unavailable Unavailable EVA, A CARRILLO DO Unavailable Unavailable EVA, A CARRILLO DO Unavailable Unavailable EVA, A CARRILLO DO Unavailable Unavailable EVA, A CARRILLO DO Unavailable Unavailable EVA, A CARRILLO DO Unavailable Unavailable EVA, A CARRILLO DO Unavailable Unavailable EVA, A CARRILLO DO Unavailable Unavailable EVA, A CARRILLO DO Unavailable Unavailable EVA, A CARRILLO DO Unavailable Unavailable EVA, A CARRILLO DO Unavailable Unavailable EVA, A CARRILLO DO Unavailable Unavailable EVA, A CARRILLO DO Unavailable Unavailable EVA, A CARRILLO DO Unavailable Unavailable Re-disclosure Warning The records that you are about to access may contain information from federally-assisted alcohol or drug abuse programs. If such information is present, then the following federally mandated warning applies: This information has been disclosed to you from records protected by federal confidentiality rules (42 CFR part 2). The federal rules prohibit you from making any further disclosure of this information unless further disclosure is expressly permitted by the written consent of the person to whom it pertains or as otherwise permitted by 42 CFR part 2. A general authorization for the release of medical or other information is NOT sufficient for this purpose. The Federal rules restrict any use of the information to criminally investigate or prosecute any alcohol or drug abuse patient.The records that you are about to access may contain highly sensitive health information, the redisclosure of which is protected by Article 27-F of the [place] State Public Health law. If you continue you may have access to information: Regarding HIV / AIDS; Provided by facilities licensed or operated by the [facility] Office of Mental Health; or Provided by the [facility] Office for People With Developmental Disabilities. If such information is present, then the following [facility] mandated warning applies: This information has been disclosed to you from confidential records which are protected by state law. State law prohibits you from making any further disclosure of this information without the specific written consent of the person to whom it pertains, or as otherwise permitted by law. Any unauthorized further disclosure in violation of state law may result in a fine or prison sentence or both. A general authorization for the release of medical or other information is NOT sufficient authorization for further disc losure. Allergies and Adverse Reactions Type Description Substance Reaction Status Data Source(s ) Drug allergy Drug allergy cefuroxime (From Ceftin) [facility] Family History Family Member Name Family Member Gender Family Member Status Date o f Status Description Data Source(s) Unknown Unknown Problem [facility] ([facility]) Encounters Encounter Providers Location Date Indications Data Source(s ) Outpatient [facility] [address] 09/05/2021 12:00:00 AM EDT eCW1 ([facility]) Outpatient Attender: Rob Garcia MD Main office - [place] 08/06/2021 12:15:00 PM EDT MED[facility] ([facility], ) Office Visit Attender: CARRILLO VELASQUEZ DO [place] [address] 08/01/2021 02:00:00 PM EDT MEDENT ([facility]) Outpatient Attender: Davina Cole 01:40:00 PM EDT MEDENT ([facility] ) Outpatient Attender: LEO LÓPEZeferrer: PROVIDER SYSTEM [id number] 07/16/2021 12:00:00 AM EDT - [facility] ADRIENNE ARMASReferrer: PROVIDER SYSTEM IN 07/16/2021 12:00:[address] [facility] Emergency Attender: Jannette Corea MD CPSCAORT-ED 021 10:29:00 AM EDT - 05/25/2021 03:06:00 PM EDT HEADACHE [facility] HEADACHE Patient discharged. <td ID="encounterTypeDescriptionID0">3 M onth Follow-Up</td><td>Carrillo Velasquez DO</td><td>Foster Perez MD [facility]</td><td>05/21/2021</td><td>6:58AM</td><td>7:44AM</td><td></td>Outpatient Attender: CARRILLO Julien MD [facility] 05/21/2021 06:58:00 AM EDT - 05/21/2021 07:44:00 AM EDT ISAAC ([facility]oster Scott MD [facility]) Outpatient<td ID="encounterTypeDescripti onID1">TRIAGE NON URGENT</td><td>Carrillo Velasquez DO</td><td>Foster Perez MD [facility]</td><td>04/25/2021</td><td>9:09AM</td><td>10:42AM</td><td><content ID="encounterDiagnosisID1-0">Idiopathic Intracranial Hypertension (Pseudotumor Cerebri)</content></td> Attender: CARRILLO Julien MD [facility] 04/25/2021 09:09:00 AM EDT - 04/25/2021 10:42:00 AM EDT 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) ISAAC (Foster Scott MD [facility]) Idiopathic Intracranial Hypertension (Ps eudotumor Cerebri) Idiopathic Intracranial Hypertension (Ps eudotumor Cerebri) Idiopathic Intracranial Hypertension (Ps eudotumor Cerebri) Outpatient [address] [facility] [address] 03/07/2021 12:00:00 AM EDT eC1 ([facility]) Outpatient<td ID="encounterTypeDescripti onID2">TRIAGE NON URGENT</td><td>Carrillo Velasquez DO</td><td>Foster Perez MD [facility]</td><td>03/04/2021</td><td>7:19AM</td><td>8:16AM</td><td><content ID="encounterDiagnosisID2-0">Idiopathic Intracranial Hypertension (Pseudotumor Cerebri)</content></td> Attender: CARRILLO Julien MD [facility] 03/04/2021 07:19:00 AM EDT - 03/04/2021 08:16:00 AM EDT 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) ISAAC (Foster Scott MD [facility]) Idiopathic Intracranial Hypertension (Ps eudotumor Cerebri) Idiopathic Intracranial Hypertension (Ps eudotumor Cerebri) Idiopathic Intracranial Hypertension (Ps eudotumor Cerebri) Idiopathic Intracranial Hypertension (Ps eudotumor Cerebri) Idiopathic Intracranial Hypertension (Ps eudotumor Cerebri) <td ID="encounterTypeDescriptionID3">[facility] 30-2</td><td>Carrillo Velasquez DO</td><td>Foster Perez MD [facility]</td><td>02/27/2021</td><td>1:43PM</td><td>2:33PM</td><td><content ID="encounterDiagnosisID3-0">Idiopathic Intracranial Hypertension (Pseudotumor Cerebri)</content></td>Outpatient Attender: CARRILLO Dangelo MD [facility] 02/27/2021 01:43:00 PM EDT - 02/27/2021 02:33:00 PM ED T 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) Idiopathic Intracranial Hypertension (Pseudotumor Cerebri) ISAAC (Foster Scott MD [facility]) Idiopathic Intracranial Hypertension (Ps eudotumor Cerebri) Idiopathic Intracranial Hypertension (Ps eudotumor Cerebri) Idiopathic Intracranial Hypertension (Ps eudotumor Cerebri) Idiopathic Intracranial Hypertension (Ps eudotumor Cerebri) Idiopathic Intracranial Hypertension (Ps eudotumor Cerebri) Outpatient [address] [facility] [place] [address] 02/05/2021 12:00:00 AM EDT eCW1 ([facility]) Outpatient Attender: Rob Garcia MD Main office - [place] 01/22/2021 10:15:00 AM EST MEDENT ([facility] ) Outpatient<td ID="encounterTypeDescripti onID4">1 Month Follow-Up</td><td>Carrillo Velasquez DO</td><td>Foster Perez MD [facility]</td><td>11/12/2020</td><td>3:00PM</td><td>3:37PM</td><td><content ID="encounterDiagnosisID4-0">Idiopathic Intracranial Hypertension (Pseudotumor Cerebri)</content></td> Attender: CARRILLO Julien MD [facility] 11/12/2020 03:00:00 PM EST - 11/12/2020 03:37:00 PM EST 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) [place] ([facility]) Idiopathic Intracranial Hypertension (Ps eudotumor Cerebri) Idiopathic Intracranial Hypertension (Ps eudotumor Cerebri) Idiopathic Intracranial Hypertension (Ps eudotumor Cerebri) Idiopathic Intracranial Hypertension (Ps eudotumor Cerebri) Idiopathic Intracranial Hypertension (Ps eudotumor Cerebri) Idiopathic Intracranial Hypertension (Ps eudotumor Cerebri) Outpatient<td ID="encounterTypeDescripti onID6">5 Month Follow-Up</td><td>Carrillo Velasquez DO</td><td>Foster Perez MD [facility]</td><td>09/30/2020</td><td>1:13PM</td><td>2:39PM</td><td><content ID="encounterDiagnosisID6-0">Idiopathic Intracranial Hypertension (Pseudotumor Cerebri)</content></td> Attender: CARRILLO Julien MD [facility] 09/30/2020 01:13:00 PM EST - 09/30/2020 02:39:00 PM EST 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) ISAAC (Foster Scott MD [facility]) Idiopathic Intracranial Hypertension (Ps eudotumor Cerebri) Idiopathic Intracranial Hypertension (Ps eudotumor Cerebri) Idiopathic Intracranial Hypertension (Ps eudotumor Cerebri) Idiopathic Intracranial Hypertension (Ps eudotumor Cerebri) Idiopathic Intracranial Hypertension (Ps eudotumor Cerebri) Idiopathic Intracranial Hypertension (Ps eudotumor Cerebri) Idiopathic Intracranial Hypertension (Ps eudotumor Cerebri) Outpatient<td ID="encounterTypeDescripti onID5">Rx Refills/Changes</td><td>Carrillo Eva DO</td><td></td><td>10/31/2020</td><td>09/30/2020 1:05PM</td><td>09/30/2020 11:59PM</td><td></td> Attender: CARRILLO VELASQUEZ DO 020 01:05:00 PM EST - 09/30/2020 11:59:00 PM EST ISAAC (Foster Scott MD [facility]) Outpatient<td ID="encounterTypeDescripti onID8">OCT DISC</td><td></td><td>Foster Perez MD [facility]</td><td>09/05/2020</td><td>12:22PM</td><td>12:53PM</td><td></td> Foster Perez MD [facility] 09/05/2020 12:22:00 PM EDT - 09/05/2020 12:53:00 PM EDT ISAAC (Foster Scott MD [facility]) Outpatient<td ID="encounterTypeDescripti onID7">TESTING - VISUAL FIELD & OCT</td><td>Carrillo Velasquez DO</td><td>Foster Perez MD [facility]</td><td>09/05/2020</td><td>12:18PM</td><td>12:53PM</td><td><content ID="encounterDiagnosisID7-0">Idiopathic Intracranial Hypertension (Pseudotumor Cerebri)</content></td> Attender: CARRILLO Julien MD [facility] 09/05/2020 12:18:00 PM EDT - 09/05/2020 12:53:00 PM EDT 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) ISAAC (Foster Scott MD [facility]) Idiopathic Intracranial Hypertension (Ps eudotumor Cerebri) Idiopathic Intracranial Hypertension (Ps eudotumor Cerebri) Idiopathic Intracranial Hypertension (Ps eudotumor Cerebri) Idiopathic Intracranial Hypertension (Ps eudotumor Cerebri) Idiopathic Intracranial Hypertension (Ps eudotumor Cerebri) Idiopathic Intracranial Hypertension (Ps eudotumor Cerebri) Idiopathic Intracranial Hypertension (Ps eudotumor Cerebri) Immunizations Vaccine Date Status Description Data Source(s) COVID-19 VACCINE Pfizer 08/09/2021 12:00:00 AM EDT completed [employer] Vaccine Series Complete: YESThis Data wa s Submitted to [facility] Via [facility]. COVID-19 VACCINE Pfizer 07/19/2021 12:00:00 AM EDT completed [employer] Vaccine Series Complete: NOThis Data was Submitted to [facility] Via [employer]. Medications Medication Brand Name Start Date Product Form Dose Route Admi nistrative Instructions Pharmacy Instructions Status Indications Reaction Description Data Source(s) Potassium Chloride 10 MEQ Extended Release Oral Tablet Potas sium Chloride ER 07/29/2021 12:00:00 AM EDT active MEDENT ([facility]) Vitamin 07/24/2021 12:00:00 AM EDT ORAL a ctive MEDENT ([facility]) Diamox 500 MG Oral Tablet Diamox 500 MG Oral Tablet 03/04/2021 1 2:00:00 AM EDT 1 aborted Diamox ISAAC (Foster Scott MD [facility]) Clindamycin 10 MG/ML Medicated Pad Clindamycin Phospha te 1 % Clindamycin Phosphate 1 % 02/05/2021 12:00:00 AM EDT acti ve Clindamycin Phosphate 1 % eCW1 ([facility]) Benzoyl Peroxide 0.05 MG/MG / Clindamyci n 0.01 MG/MG Topical Gel [Benzaclin] BenzaClin 1-5 % BenzaClin 1-5 % 02/05/2021 12:00:00 AM EDT 1.0 {binta lication} active BenzaClin 1-5 % eCW1 ([facility]) Clindamycin 10 MG/ML Medicated Pad Clindamycin Phospha te 1 % Clindamycin Phosphate 1 % 02/05/2021 12:00:00 AM EDT acti ve Clindamycin Phosphate 1 % eCW1 ([facility]) Benzoyl Peroxide 0.05 MG/MG / Clindamyci n 0.01 MG/MG Topical Gel [Benzaclin] Benzaclin 1-5 % Benzaclin 1-5 % 02/05/2021 12:00:00 AM EDT 1.0 {binta lication} active Benzaclin 1-5 % eCW1 ([facility]) Benzoyl Peroxide 0.05 MG/MG / Clindamyci n 0.01 MG/MG Topical Gel [Benzaclin] Benzaclin 1-5 % Benzaclin 1-5 % 02/05/2021 12:00:00 AM EDT 1.0 {binta lication} active Benzaclin 1-5 % eCW1 ([facility]) Clindamycin 10 MG/ML Medicated Pad Clindamycin Phospha te 1 % Clindamycin Phosphate 1 % 02/05/2021 12:00:00 AM EDT acti ve Clindamycin Phosphate 1 % eCW1 ([facility]) 12 HR Acetazolamide 500 MG Extended Rele ase Oral Capsule acetaZOLAMIDE ER 500 MG Oral Capsule Extended Release 12 Hour acetaZOLAMIDE ER 500 MG Oral Capsule Extended Release 12 Hour 10/31/2020 12:00:00 AM EST 1 aborted 12 HR acetazolamide 500 MG Extended Release Oral Capsule [facility]AC (Foster Scott MD [facility]) Amitriptyline 20 MG Oral Tablet Amitriptyline 20 MG Oral Tab let 09/30/2020 12:00:00 AM EST 1 aborted Amitrip tyline ISAAC (Foster Scott MD [facility]) Control Oral Tablet Control Oral Tablet 11/21/2019 1 2:00:00 AM EST 1 aborted Control GR EENWAY (Foster Scott MD [facility]) Potassium 10 MEQ Oral Capsule Potassium 10 MEQ Oral Capsule 11/21/2019 12:00:00 AM EST 1 aborted Potassium 10 MEQ ISAAC (Foster Scott MD [facility]) AcetaZOLAMIDE 1000 MG Oral Tablet AcetaZOLAMIDE 1000 MG Oral Tablet 09/15/2019 12:00:00 AM EDT 1 aborted AcetaZO LAMIDE [facility] (Foster Scott MD [facility]) Xyzal 10MG Oral Tablet Xyzal 10MG Oral Tablet 03/07/2019 12:00:00 AM E DT 1 aborted Xyzal ISAAC (Etienne Scott MD [facility]) Insurance Providers Payer name Policy type / Coverage type Policy ID Covered alliance party ID Covered alliance party's relationship to eric Policy Eric Plan Information [facility] [id number] [facility] Trad/TeamPatent Medigap Part B [id number] Family Dependent [id number] [facility] Trad/MX Commercial [id number] Family Dependent 802 EXCELLUS C [id number] Child [id number] BCBS GENERIC C [id number] Child [id number] [facility] Workers Compensation [id number] Self [id number] [facility] Workers Compensation [id number] Maggi f [facility] Workers Compensation [id number] Self [id number] [facility] Workers Compensation [id number] Self [facility] Commercial [id number] Self [id number] [facility] [id number] Self [id number] [employer] [place] PPO 302/[id number] SP [id number] [facility] Trad/MX Commercial [id number] Self [id number] [facility] Health Maintenance Organization ([facility]) [id number] Self [id number] [facility] Health Maintenance Organization (O) [id number] Self [id number] [facility] Health Maintenance Organization ([facility]) [id number] Self [id number] EXCELLUS [id number] Self [id number] [facility] Trad/MX Commercial [id number] Self [id number] [facility] Part [facility] [id number] Family Dependent [id number] [facility] [id number] SP [id number] BCBS/[employer] Commercial [id number] Self [id number] [employer] Commercial [id number] Self [id number] [facility] Part B [id number] Family Dependent [id number] [facility] CHOICE PLUS [id number] SP [id number] [facility] Part B [id number] Family Dependent [id number] [facility] FEDERAL EMPLOYEE PROGRAM [id number] MO2 [id number] [facility] Commercial [id number] Self 1 [id number] EXCELLUS [facility] [id number] MO2 [id number] [facility] Commercial [id number] Self 1 [id number] [facility] -[facility]/P [id number] 18 [id number] [facility] Community Plan Medicaid [id number] Self [id number] [facility] -PHYSIC[facility] [id number] 18 [id number] [facility] COMMUNITY PLAN [id number] 18 [id number] [facility] O [id number] S [id number] UNITED [facility]CARE -O/P [id number] 18 [id number] [facility] [id number] SP 1 [id number] [facility] Part B [id number] Self 1 [id number] [facility] Federal Plan Commercial [id number] Family Dependent [id number] [facility] Health Maintenance Organization (HMO) .[id number] Family Dependent Federal BC/BS Commercial [id number] Family Dependent 304/804 BCBS Federal Plan Commercial [id number] Self BC BS [place] FEDERAL B [id number] C [id number] [facility] [id number] SP [id number] BC BS [place] FEDERAL [id number] [id number] BCBS [place] PPO 302/307 [id number] SP [id number] BCBS OF [place] 306/806 [id number] SP [id number] BCBS of [facility] Other 0 [id number] Self 0 EXCELLUS BCBS [place] 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 [id number] BCBS of [facility] Other 0 [id number] Self 0 BCBS of [facility] Other 0 [id number] Self 0 BCBS of [facility] Other 0 [id number] Self 0 BCBS of [facility] Other 0 [id number] Self 0 BCBS of [facility] Other 0 [id number] Self 0 BCBS of [facility] Other 0 [id number] Self 0 EXCELLUS BCBS B [id number] S [id number] BCBS of [facility] Other 0 [id number] Self 0 BCBS of [facility] Other 0 [id number] Self 0 EXCELLUS [employer]A [id number] S [id number] Federal BC/BS [place] Part B [id number] Family Dependent [id number] BCBS [place] PPO 302/307 [id number] SP [id number] [employer] Commercial Commercial [id number] Self [id number] BCBS [place] PPO 302/307 [id number] SP [id number] Problems, Conditions, and Diagnoses Code Display Name Description Problem Type Effective Dates Data Source(s) Z3A.14 14 weeks gestation of 14 WEEKS GESTATI ON OF Diagnosis 05/25/2021 10:29:00 AM EDT [facility] H53.149 Visual discomfort, unspecified VISUAL DISCOMFORT, UNSP ECIFIED Diagnosis 05/25/2021 10:29:00 AM EDT [facility] O21.9 Vomiting of , unspecified VOMITING OF P REGNANCY, UNSPECIFIED Diagnosis 05/25/2021 10:29:00 AM EDT [facility] R51.9 HEADACHE, UNSPECIFIED HEADACHE, UNSPECIFIED Diagnosis 05/25/2021 10:29:00 AM EDT [facility] O99.891 OTH DISEASES AND CONDITIONS COMPLICATING OTH DISEASES AND CONDITIONS COMPLICATING Diagnosis 05/25/2021 10:29:00 AM EDT [facility] L73.2 [id number] Hidradenitis suppurativa Problem 09/04/2021 12:00:00 AM EDT eCW1 ([facility]) G93.2 Benign intracranial hypertension Benign intracranial h ypertension Problem 08/01/2021 12:00:00 AM EDT [facility] ([facility]) Surgeries/Procedures Procedure Description Date Indications Data Source(s) OFFICE OUTPATIENT VISIT 25 MINUTES 08/06/2021 12:00:00 AM EDT [facility] ([facility]) Diabetic Retinal Eye Exam 08/01/2021 12:00:00 AM EDT [facility] ([facility]) OPH MEDICAL XM&EVAL COMPRE NEW PT 1/> VST 08/01/2021 12:00:00 AM EDT [facility] ([facility]) PERIODIC PREVENTIVE MED EST PATIENT 18-39 YRS 07/24/20 12:00:00 AM EDT [facility] ([facility]) Non-covered item or service NON-COVERED ITEM OR SERVICE 05/15 12:00:00 AM EDT [facility] Injection, promethazine hcl, up to 50 mg 05/25/2021 12 :00:00 AM EDT [facility] IV INFUSION THERAPY/PROPHYLAXIS /DX 1ST TO 1 HR THER/PROPH/D IAG IV INF INIT 05/25/2021 12:00:00 AM EDT [facility] EMERGENCY DEPARTMENT VISIT HIGH/URGENT SEVERITY EMERGENCY DE PT VISIT 05/25/2021 12:00:00 AM EDT [facility] Intermediate Eye Exam Established Patient Intermediate Eye Exam Established Patient 04/25/2021 12:00:00 AM EDT ISAAC ([facility] Scott [facility]) Intermediate Eye Exam Established Patient Intermediate Eye Exam Established Patient 04/25/2021 12:00:00 AM EDT ISAAC ([facility]) Intermediate Eye Exam Established Patient Intermediate Eye Exam Established Patient 03/04/2021 12:00:00 AM EDT ISAAC ([facility]) Intermediate Eye Exam Established Patient Intermediate Eye Exam Established Patient 03/04/2021 12:00:00 AM EDT ISAAC (Trace Scott [facility]) Visual Field (WAIVER OF LIABILITY ON FILE (ABN)) Visua l Field (WAIVER OF LIABILITY ON FILE (ABN)) 02/27/2021 12:00:00 AM EDT ISAAC (Foster Scott MD [facility]) Visual Field (GA) Visual Field (GA) 02/27/2021 12:00:00 AM EDT ISAAC ([facility]) Intermediate Eye Exam Established Patient Intermediate Eye Exam Established Patient 11/12/2020 12:00:00 AM EST ISAAC ([facility]) Intermediate Eye Exam Established Patient Intermediate Eye Exam Established Patient 09/30/2020 12:00:00 AM EST ISAAC ([facility]) Intermediate Eye Exam Established Patient Intermediate Eye Exam Established Patient 09/30/2020 12:00:00 AM EST ISAAC ([facility]) Scodi, optic nerve with interpretation and report Scod i, optic nerve with interpretation and report 09/05/2020 12:00:00 AM EDT KAYLA Lovett (Foster Scott [facility]) Visual Field Visual Field 09/05/2020 12:00:00 AM EDT Dayo RAMIREZ ([facility]) Results ID Date Data Source [id number] 09/02/2021 01:23:00 PM EDT [facility] ([facility]) Name Value Range Interpretation Code Description Data Mendy rce(s) Supporting Document(s) Glucose [Mass/volume] in Serum or Plasma --1 hour post XXX chall enge 76 mg/dL [facility] ([facility]) ID Date Data Source [id number] 09/02/2021 01:23:00 PM EDT [facility] ([facility]) Name Value Range Interpretation Code Description Data Mendy rce(s) Supporting Document(s) White Blood Count 9.4 10 4.0-10.0 [facility] ([facility]) Red Blood Count 3.71 10 4.00-5.40 [facility] ([facility]) Hematocrit 34.2 % 36.0-47.0 [facility] ([facility]) Hemoglobin 11.3 g/dL 12.0-15.5 [facility] Mean Corpuscular Hemoglobin 30.5 pg 27.0-33.0 [place] [facility] ([facility]) Mean Corpuscular Volume 92.2 fl 80.0-96.0 [facility] Mean Corpuscular HGB Conc 33.0 g/dL 32.0-36.5 [facility] NT ([facility]) Red Cell Distribution Width 12.6 % 11.5-14.5 [place] [facility] ([facility]) Platelet Count, Automated 240 10 150-450 [facility] ([facility]) Nucleated Red Blood Cell % 0.0 % 0-0 MED [facility] ([facility]) ID Date Data Source [id number] 08/14/2021 09:00:00 AM EDT [facility] ([facility]) Name Value Range Interpretation Code Description Data Mendy rce(s) Supporting Document(s) Potassium [Moles/volume] in Serum or Plasma 3.8 meq/L 3.5-5.[address] [facility] ([facility]) ID Date Data Source [id number] 07/24/2021 02:05:00 PM EDT [facility] ([facility]) Name Value Range Interpretation Code Description Data Mendy rce(s) Supporting Document(s) Glucose [Mass/volume] in Serum or Plasma 90 mg/dL 74-99 [facility] ([facility]) 100-125 mg/dL PRE-DIABETES/FASTING >126 mg/dL DIABETES/FASTING Creatinine 0.7 mg/dL 0.6-1.3 [facility] ([facility]) Urea nitrogen [Mass/volume] in Serum or Plasma 6 mg/dL 7-18 [facility] ([facility]) Sodium [Moles/volume] in Serum or Plasma 139 meq/L 136-145 [facility] ([facility]) NOTE: POTASSIUM,ALBUMIN VERIFIED Potassium [Moles/volume] in Serum or Plasma 3.1 meq/L 3.5-5.1 [facility] ([facility]) Chloride [Moles/volume] in Serum or Plasma 106 meq/L 98-107 [facility] ([facility]) Alkaline phosphatase isoenzyme [Units/volume] in Serum or Pl asma 64 mg/dL 46-116 [facility] ([facility]) Calcium [Mass/volume] in Serum or Plasma 8.8 mg/dL 8.5-10.1 [facility] ([facility]) Carbon dioxide, total [Moles/volume] in Serum or Plasma 22 meq/L 21 -32 [facility] ([facility]) Total Bilirubin 0.2 mg/dL 0.2-1.0 [facility] ([facility]) Alanine aminotransferase [Enzymatic activity/volume] in Seru m or Plasma 12 U/L 12-78 [facility] ([facility]) Aspartate aminotransferase [Enzymatic activity/volume] in Se rum or Plasma 8 U/L 15-37 [facility] ([facility]) A/G Ratio 0.71 CALC 1.00-1.90 [facility] ([facility]) Proteinase 3 Ab [Units/volume] in Serum 7.0 g/dL 6.4-8.2 [facility] ([facility]) Albumin [Mass/volume] in Serum or Plasma 2.9 g/dL 3.4-5.0 [facility] ([facility]) Glomerular filtration rate/1.73 sq M pre dicted among blacks [Volume Rate/Area] in Serum or Plasma by Creatinine-based formula (MDRD) Laboratory test result [facility] ([facility]) <content>CHRONIC KIDNEY DISEASE STAGING PER NKF</content>
<content></content>
<content>STAGE I & II GFR >= 60 NORMAL TO MILDLY DECREASED</content>
<content>STAGE III GFR 30-59 MODERATELY DECREASED</content>
<content>STAGE IV GFR 15-29 SEVERELY DECREASED</content>
<content>STAGE V GFR <15 VERY LITTLE GFR LEFT</content>
<content>ESRD GFR <15 ON AUTO ACCESSORIES INSTALLER</content>
<content></content> Glomerular filtration rate/1.73 sq M pre dicted among non-blacks [Volume Rate/Area] in Serum or Plasma by Creatinine-based formula (MDRD) Laboratory test result [facility] ([facility] ) ID Date Data Source [id number] 07/24/2021 02:05:00 PM EDT [facility] ([facility]) Name Value Range Interpretation Code Description Data Mendy rce(s) Supporting Document(s) Leukocytes [#/volume] in Blood by Automated count 9.8 x10*3/UL 4.1-[address] [facility] ([facility]) Hematocrit [Volume Fraction] of Blood by Automated count 34.0 % 3 7.0-51.[address] [facility]) Erythrocytes [#/volume] in Blood by Automated count 3.91 x10*6/UL 4.2 0-6.[address] [facility] ([facility]) Hemoglobin [Mass/volume] in Blood 12.0 g/dL 12.0-18.[address] [facility] ([facility]) MCV 86.7 fL 80.0-97.0 [facility] MCH 30.7 pg 26.0-32.0 [facility]) Erythrocyte distribution width [Ratio] by Automated count 12.4 % 11.6-13.7 [facility] ([facility]) MCHC 35.4 g/dL 31.0-38.0 [facility] Platelets [#/volume] in Blood by Automated count 291 x10*3/UL 140-440 [facility] ([facility]) MPV 8.7 FL 7.8-11.0 [facility]) Lymph % 22.4 % 10.0-58.5 [facility]) Mid % 6.3 % 1.7-9.3 [facility]) Neut % 71.3 % 37.0-92.0 [facility]) Lymph # 2.2 x10*3/UL 0.6-4.1 [facility] ([facility]) Neut # 7.0 x10*3/UL 2.0-7.8 [facility] ([facility]) Mid # 0.6 x10*3/UL 0.1-0.6 [facility] ([facility]) ID Date Data Source [id number] 07/16/2021 03:42:16 PM EDT [facility] Name Value Range Interpretation Code Description Data Mendy rce(s) Supporting Document(s) Progress Note [facility] WUPULl9mPgGIAnGu87/CGJioLKBki9XdJDbgIYy3TUhdPCMbQ8MmALE6mZ4fZBT7TLlLVjHhWdNmYBEg lbm [file] ICAgICAgICAgICAgICAgICAgICAgICAgICAgICAgICAgICAgICAgICAgICAgICAgICAgICAgICAgICAg ICAgICAgICAgICAgICAgICAgICAgICAgICAgICAgIC AgICAgICAgDQogICAgICAgICAgICAgICAgICAgICAgICAgICAgICAgICAgICAgICAgICAgICAgICAgIC AgICAgICAgICAgICAgICAgICAgICAgICAgICAgICAgICAgICAgICAgICAgICAgICAgDQogICAgICAgIC AgICAgICAgICAgICAgICAgICAgICAgICAgICAgICAg ICAgICAgICAgICAgICAgICAgICAgICAgICAgICAgICAgICAgICAgICAgICAgICAgICAgICAgICAgICAg DQogICAgICAgICAgICAgICAgICAgICAgICAgICAgICAgICAgICAgICAgICAgICAgICAgICAgICAgICAg ICAgICAgICAgICAgICAgICAgICAgICAgICAgICAgIC AgICAgICAgICAgDQogICAgICAgICAgICAgICAgICAgICAgICAgICAgICAgICAgICAgICAgICAgICAgIC AgICAgICAgICAgICAgICAgICAgICAgICAgICAgICAgICAgICAgICAgICAgICAgICAgICAgDQogICAgIC AgICAgICAgICAgICAgICAgICAgICAgICAgICAgICAg ICAgICAgICAgICAgICAgICAgICAgICAgICAgICAgICAgICAgICAgICAgICAgICAgICAgICAgICAgICAg ICAgDQogICAgICAgICAgICAgICAgICAgICAgICAgICAgICAgICAgICAgICAgICAgICAgICAgICAgICAg ICAgICAgICAgICAgICAgICAgICAgICAgICAgICAgIC AgICAgICAgICAgICAgDQogICAgICAgICAgICAgICAgICAgICAgICAgICAgICAgICAgICAgICAgICAgIC AgICAgICAgICAgICAgICAgICAgICAgICAgICAgICAgICAgICAgICAgICAgICAgICAgICAgICAgDQogIC AgICAgICAgICAgICAgICAgICAgICAgICAgICAgICAg ICAgICAgICAgICAgICAgICAgICAgICAgICAgICAgICAgICAgICAgICAgICAgICAgICAgICAgICAgICAg ICAgICAgDQogICAgICAgICAgICAgICAgICAgICAgICAgICAgICAgICAgICAgICAgICAgICAgICAgICAg ICAgICAgICAgICAgICAgICAgICAgICAgICAgICAgIC CmWRIiOKNcAZEnKXBiGRShBXb6G6lcTGDxFDWjFH2sWIf6Wl2+LFkVTePlYQJ0qcEjvT6MPW2uw1ZkXG mqOJDrd8BkDHw6IC8PDLWjTOjgRY8XTMswnh0SJECaGUUasVUKm6mgQlDeWBS1WSPaJwlwKP2RJMYpX9 tzphBbLWYaHXEKVMwdZYOTVJ9SNqBtP0PehC09TSMI Cj4+EOyfsqOyMunJUpE7JENvg4KpFTi7HQ8QFYAiLrhdw7CqBmabDZMQKRqfIK7SMMY0WLH8IFNgXw7W JBGoS216cyChRG9LRp8EIlXiGX5mii9QUbiwEMQpPirYHnc9UAftEC0KeSLwPEyMhs8dddDzbuPZk3Ae jaHhfKQJf9JqvlPlQzDScQx2TNIoWM8tJR3FVAH2RF dbRB7iJKKlMFMbAhEeUMSAFB7BSXRxBPYvmKGdSCVhWIBCBM5BOPbuILP8RCNsyaMjvAMlRGmoSV5KSU JlbnQgMjcgMCBSDQo+Sl4VWY3pb5DfOWtlDERhIU4abq6AGPbHBmZpD7Z1kMAdD2O5PVhjMa6WENNyBG MvIzFfDQSPRYnrFY8ZEV9sfsH9ZK9LiCTmHGAaQSTt pXByMSm5E61nzYReRVjhHK4KETV+Elizabeth+Pm2QQPFbXQXvFJEwSnYuBIZHSvQyW7UhT0JYd8DdK0PkEP15 uMzyghMkNJvfEW0HOL0sFNDtFQWYEB7IqFXmeQ6rxiHeRoSgOCQEZmBnD55zkADfOXZwBSX9DZSpBh3D HQKcH4GsvdOmpPpwylXwKZXyIZBYIH5GGUelbbDzsV NlhKhfIJ88gPjtTB2VSd0SBzHlTB1gxe6HkJIgAd5ROBMrKC2JITFkWLHpOWKpNAA3AHEjJnAiYQhdNX LgYQIjBIX7FFTjBEHxMU4TInRoDQUjNSHpEvGbAZFwPHLkrr3JRHDvRLJ1Ppa0DaTnBYNvVRYvKXzmRM ApBXJzMUI7GJUmJKQnWT5PHaUqOZTeGWZ9ErRlTSTj ZJMmxz7QPBXdSUTuUwypLhEaZIGhNAUdEYqiOMCzZXI9YLl5JJNrWCKrJS0XOyXlEGRgRZt5HQWyMPCu HWBebm1GIBYrQTHyHLW7XUEdHLArSZIcICnwDYZcIMM9UGB3OUVcSCMcLJ6PDrBwSRGjXZw7OpUbYQEv WTJrlw4NHHTlSRCvSZS3RFScKKSnWDAnJAhpEBOtLS T0MPx1HRNoFEBlMB6BBfJhONGiWQGcAWRuXRHsCIMckx3GTXKxXHQ4SHQcDJHxEJKmLHZpHLpoDQCcZX AnBsLrJLQpOGJmAL2NUgDoCFPzDSF0QVQeZPIiPVXnsa0HKSJwLBP4ZdI9MPLnVEGxBUIsKEkbBVMgVC FaOHE6ZDXhKIFaNP4GUhLyPHTxHUIfTTalDOGhKNSt gc3RDNWbADN0LDVxZYQiUUZgOOZhQRswWLHySPK4IuVcHLUoRFGkHU0VPgRrXRHaCNG7FEBmFSQwJMMq ej3NRJRtCXT5GBojXeXtGLDhXJOiYAouDDEwPNP8RMRoLYUrCNHhXP5QDrEsZXXfHDV6HUQfRDFsEBHl jy3CMYSwUQX7Hwk6JeZoACAdKEEeMRjmVILpTBE4NV G7IRGrSSWrFL9APjUtMGOxFAghMPJkOIFsMWXzwp4EaGDjiVufjk5NNApSFb7SdXqwEJWpEFcxCi9ktR ZgTACkTXCAIi8KcrMzBFXzWCLMMTlySTKlXYQ2XXQjJXH3VLM1GTD8AUH3LfInElu4ZJp2UQMlHSw8Ok O8Qdu2RCK4LjlcITEyIoPoFpvtSRGjLSP1RJOtYWZ5 ODg+GY3uHFp+Pb6Nx8BrpmA7pyKhQKj1BCI2ER4OBZIVW1XICu== ID Date Data Source [id number] 05/25/2021 10:29:00 AM EDT [facility] Name: ANGI GARIBAY [facility] Rec #: [id number] : 1990 Age/Sex: 31F Date of Service: 05/25/21 PHYSICIAN CHART Physician Documentation [facility] Name: Angi Garibay Age: 31 yrs Sex: Female : 1990 Arrival Date: 05/25/2021 Time: 10:29 Bed 12 Private MD: Davina Rasmussen ED Physician Jannette Corea HPI: 05/25 12:06 This 31 yrs old Female presents to ER via Walk-In with jtv complaints of Headache. 12:06 Patient is a 31-year-old female, G2, P1, currently 14 weeks jtv , who has a history of migraines but also intracranial hypertension. She has had 2 lumbar punctures in the past to remove CSF for her intracranial hypertension. She restarts her Diamox in 2 days now that she is through the first trimester. She comes in today with severe headache, nausea, no vomiting. She took Tylenol around 5 AM with no relief, again at 10 AM with no relief. No fevers or chills. She cannot tell if this is a migraine or the intracranial hypertension. With the latter, she usually has a positional change with a headache, and that does not seem to be as much the case this time. she is also photophobic. She was at a wedding yesterday, reports that she might be dehydrated and had extra salt to eat. Apart from that, no change in her normal daily habits. The has been going well. Her neurologist is in [place], as is her OB. She denies any vaginal bleeding or cramping.. AFFIRMATIVE ACTION SPECIALIST: 10:39 due Nov 25 Historical: - Allergies: Ceftin; - Home Meds: 1. Vitamin Oral tab 1 tab once daily - PMHx: intracranial headaches; - PSHx: section; Appendectomy; - Med Reconciliation:: Green Alert: The patient's med list is complete to the best of the nurse's/provider's knowledge. Medications reviewed, completed by nurse verbally from patient/family. - Immunization history,: All immunizations are up to date. COVID-19 vaccine: Not immunized. - Advance directive: There is no existing advanced directive. Information offered. - Family History:: mother has a history of diabetes mellitus, has a history of hypertension, Father has a history of hypertension. - Hospitalizations: : No recent hospitalization is reported. - Social History: Smoking status (Tobacco): Patient states he/she has never smoked tobacco. Preferred Language: [place] Leonean. - The history of the events were obtained from: the patient. . ROS: 12:08 Constitutional: See HPI. Respiratory: Negative for jtv shortness of breath, dyspnea on exertion. Abdomen/GI: See HPI. Skin: Negative for diaphoresis, pallor. Neuro: See HPI. All other systems are negative. Exam: 12:09 Head/Face: Normocephalic, atraumatic. jtv 12:09 Cardiovascular: Regular rate and rhythm with a normal S1 and S2. No gallops, murmurs, or rubs. No edema. Respiratory: No respiratory distress. Normal work of breathing. Clear to auscultation bilaterally. 12:09 Constitutional: The patient appears afebrile, appears alert, appears to be awake, is not diaphoretic, is obviously uncomfortable, well hydrated, appears well nourished. 12:09 Eyes: Periorbital structures: appear normal, Pupils: equal, round, and reactive to light and accomodation, Extraocular movements: intact throughout. 12:09 Neck: ROM/movement: is normal, is supple. 12:09 Abdomen/GI: Inspection: obese, Bowel sounds: normal, Palpation: abdomen is soft and non-tender, involuntary guarding, is not appreciated, rebound tenderness, is not appreciated. 12:09 Skin: Appearance: Color: normal in color, Temperature: normal temperature, no rash present. 12:09 Neuro: Orientation: is normal, Mentation: is normal, Memory: is normal, Cranial nerves: CN II- XII are normal as tested, Motor: is normal, Sensation: no obvious gross deficits, Gait: is steady. 12:09 Psych: Behavior/mood is pleasant, cooperative, Affect is calm. Vital Signs: 10:39 Weight 120.2 kg; Height 5 ft. 8 in. (172.72 cm); sm6 10:41 BP 136 / 85; Pulse 84; Resp 16; Temp 98.7(TE); Pulse Ox sm6 100% on R/A; 12:14 BP 126 / 72; Pulse 80; Resp 16; Pulse Ox 99% ; jv2 15:03 BP 124 / 68; Pulse 74; Resp 16; Temp 99.1; Pulse Ox 100% ; jv2 10:39 Body Mass Index 40.29 (120.20 kg, 172.72 cm) 6 MDM: 10:48 Patient medically screened. jtv 13:18 Data reviewed: vital signs, nurses notes. ED course: Pain jtv decreased to 5/10. Will check positional component. . 14:40 ED course: Patient is a 31-year-old female who has a jtv history of migraines and intracranial hypertensive headaches. She is also 14 months currently. She comes in with headache, and she is not able to tell if this is more migrainous versus her intracranial hypertension. Here, she was uncomfortable but nontoxic, neurologically intact. Denied any visual changes. Afebrile, neck supple. She was given fluids and Phenergan as she had already received Tylenol just prior to arrival. Obviously cannot have ibuprofen due to . She had quite significant improvement in her headache down to a 5 out of 10, which she marked as a tolerable level for her. She requested a tablet of Fioricet which is helped her in the past. This is safe at this point in her , and so we have ordered 1 dose of that. She feels that she is okay to go home, continue supportive management at home. She starts her Diamox in 2 days. She certainly should return, which I have discussed with her, should her headaches worsen, or follow-up with her neurologist for a lumbar puncture with CSF removal if things get worse. Comfortable with the plan. All questions answered. Please note that portions of this note have been completed with a voice recognition program. Efforts were made to edit the dictations but occasionally words are mistranscribed.. 05/25 10:45 Order name: Saline Lock; Complete Time: 10:57 jtv 05/25 11:01 Order name: Heart Tones; Complete Time: 11:15 jtv Dispensed Medications: 11:14 Drug: Promethazine 25 mg [promethazine 25 mg/mL injection meb solution] Route: IVPB; Infused Over: 15 mins; Site: right antecubital; 12:00 Follow up: Response: Nausea is decreased; No adverse jv2 reaction; Pain is decreased 11:15 Drug: NS 0.9% 1000 ml [sodium chloride 0.9 % intravenous meb solution] Route: IV; Rate: 999 mL/hr; Site: right antecubital; 12:30 Follow up: Response: No adverse reaction; IV Status: jv2 Co mpleted infusion; IV converted to saline lock; IV Intake: 1000ml 14:12 Drug: Fioricet 1 tabs Route: PO; jv2 15:00 Follow up: Response: No adverse reaction; Pain is jv2 decreased; Symptoms have improved. Disposition Summary: 05/25/21 14:43 Discharge Ordered Location: Home/Self Care jtv Condition: Good jtv Diagnosis - Acute Headache jtv Followup: jtv - With: Davina Rasmussen - When: 1 week - Reason: Continuance of care Followup: jtv - With: Private Physician - When: Your neurologist this week - Reason: Continuance of care Followup: jtv - With: Emergency Department - When: As needed - Reason: Fever > 101 F, vomiting, vision changes, worsening headache, any other concerns. Discharge Instructions: - Discharge Summary Sheet jtv - Recurrent Migraine Headache jtv Forms: - Medication Reconciliation jtv Prescriptions: - [id number]-[id number]-thv-cod [id number] mg Oral Capsule - take 1 capsule by ORAL route every 4 hours MDD 6 jtv capsules per 24hrs; 10 capsule; Refills: 0, Product Selection Permitted Signatures: Jannette Corea MD MD jtCherry Andrews RN RN sm6 Flores Milton RN RN jv2 Dione Pena RN RN cob Name Value Range Interpretation Code Description Data Mendy rce(s) Supporting Document(s) ID Date Data Source [id number] 05/25/2021 10:29:00 AM EDT [facility] Name: ANGI GARIBAY [facility] Rec #: [id number] : 1990 Age/Sex: 31F Date of Service: 05/25/21 DISPOSITION SUMMARY Discharge Summary [facility] Name:Angi Garibay Emergency Department Age:31 yrs Sex:Female :1990 Arrival:05/25/2021 10:29 Departure Date05/25/2021 Departure Time15:06 Private MD:Davina Rasmussen Outcome: Discharge Location: Home/Self Care Condition: Good Chief Complaint: Headache Diagnosis: Acute Headache Prescriptions: egkqnolimy-jgitrrfgxv-zqa-cod 70-810-35-30 mg Oral Capsule - take 1 capsule by ORAL route every 4 hours MDD 6 capsules per 24hrs; 10 capsule Follow up: Davina Rasmussen Custom Notes: Angi-<span>please return to the emergency department should your sy mptoms</span><span> worsen, you develop any vomiting, vision changes, fever, neck stiffness.</span><span> I would like you to follow-up with your neurologist later this week.</span><span> Please start your Diamox as scheduled on Wednesday.</span> Attending Physician: Jannette Corea MD Private MD: Davina Rasmussen Mid Level Provider: Followup Physician: Davina Rasmussen Orders: NS 0.9%, Promethazine, Saline Lock, Heart Tones, Miscellaneous Medication - Non Formulary Discharge Instruction: Discharge Summary Sheet, Recurrent Migraine Headache, Medication Reconciliation Name Value Range Interpretation Code Description Data Mendy rce(s) Supporting Document(s) ID Date Data Source [id number] 05/25/2021 10:29:00 AM EDT [facility] Name: ANGI GARIBAY [facility] Rec #: [id number] : 1990 Age/Sex: 31F Date of Service: 05/25/21 NURSE CHART Nurse's Notes [facility] Name: Angi Garibay Age: 31 yrs Sex: Female : 1990 Arrival Date: 05/25/2021 Time: 10:29 Bed 12 Private MD: Davina Rasmussen Diagnosis: Acute Headache Presentation: 05/25 10:37 Transition of care: patient was not received from another [facility] setting of care. Presenting complaint: Patient states - 0500 headache when awoke hx intracranial HTN. Have you travelled in the last 30 days? No. Have you had contact with an individual with a confirmed diagnosis of Ebola or COVID-19? No. 10:37 Method Of Arrival: Walk-In [facility] 10:37 Acuity: Urgent - 3 [facility] Triage Assessment: 10:37 Headache History: The patient has had previous headaches [facility] and this one is similar to previous episodes. Suicide Screening: Have you had thoughts of harming yourself or others? No. The patient appears to be uncomfortable, The patient is cooperative. Patient states the pain is currently a 10 / 10 The patient complains of pain in left side of the back of head, left occipital area, right side of the back of head and right occipital area. The patient also complains of pain in behind eyes. The patient states the pain began awoke 0500. The quality of the pain is described as aching, The pain is described as continuous. 15:05 SEPSIS SCREEN: A Confirmed or Suspected Infection is jv2 Unknown, SIRS or Sepsis criteria is not present. The patient also reports photophobia. AFFIRMATIVE ACTION SPECIALIST: 10:39 due Nov 25 sm6 Historical: - Allergies: Ceftin; - Home Meds: 1. Vitamin Oral tab 1 tab once daily - PMHx: intracranial headaches; - PSHx: section; Appendectomy; - Med Reconciliation:: Green Alert: The patient's med list is complete to the best of the nurse's/provider's knowledge. Medications reviewed, completed by nurse verbally from patient/family. - Immunization history,: All immunizations are up to date. COVID-19 vaccine: Not immunized. - Advance directive: There is no existing advanced directive. Information offered. - Family History:: mother has a history of diabetes mellitus, has a history of hypertension, Father has a history of hypertension. - Hospitalizations: : No recent hospitalization is reported. - Social History: Smoking status (Tobacco): Patient states he/she has never smoked tobacco. Preferred Language: Sierra Leonean. - The history of the events were obtained from: the patient. . Screenin:41 AUDIT 1. How often do you have a drink containing alcohol? sm6 Never (0 points). Drug Abuse Screening Test: 1. Have you used drugs other than those required for medical reasons? No (0 points), screen is complete, no risk. Abuse screen: Denies threats or abuse. Nutritional screening: No deficits noted. 15:03 The patient has a history of falls (25 points). jv2 Assessment: 13:00 Neuro: No Neuro Deficit is noted. Level of Consciousness is jv2 awake, alert, Patient is oriented to person, place and time. Biopsychologist strength is equal bilaterally. Strength is normal in all extremities. Patient has full function of all extremities. Patient moves all extremities. Gait is steady, Speech is normal, Facial symmetry appears normal. 15:00 See Triage Assessment. jv2 Vital Signs: 10:39 Weight 120.2 kg; Height 5 ft. 8 in. (172.72 cm); sm6 10:41 BP 136 / 85; Pulse 84; Resp 16; Temp 98.7(TE); Pulse Ox sm6 100% on R/A; 12:14 BP 126 / 72; Pulse 80; Resp 16; Pulse Ox 99% ; jv2 15:03 BP 124 / 68; Pulse 74; Resp 16; Temp 99.1; Pulse Ox 100% ; jv2 10:39 Body Mass Index 40.29 (120.20 kg, 172.72 cm) sm6 Vitals: 11:15 Heart Tones 145 bpm. cob ED Course: 10:32 Patient arrived in ED. cc4 10:36 Davina Rasmussen is Private Physician. sm6 10:37 Triage completed. sm6 10:39 Arm band placed on right wrist. Patient has correct armband sm6 on for positive identification. 10:43 Flores Milton RN is Primary Nurse. sm6 10:44 Jannette Corea MD is Attending Physician. jtv 10:57 Labs drawn by ED staff. Inserted saline lock: 20 gauge in meb right antecubital area and blood collected. 14:42 Davina Rasmussen is Referral Physician. jtv 15:04 Radiology: None performed. jv2 15:04 Patient has correct armband on for positive identification, jv2 Placed in gown, Bed in low position, Call light in reach, Side rails up X 1, family is at the bedside. Pulse on is on. NIBP on. Door closed. Noise minimized. Lights dimmed. 15:04 No procedures ordered. Discontinued IV lock intact, jv2 bleeding controlled, pressure dressing applied, No redness/swelling at site. Administered Medications: 11:14 Drug: Promethazine 25 mg [promethazine 25 mg/mL injection meb solution] Route: IVPB; Infused Over: 15 mins; Site: right antecubital; 12:00 Follow up: Response: Nausea is decreased; No adverse jv2 reaction; Pain is decreased 11:15 Drug: NS 0.9% 1000 ml [sodium chloride 0.9 % intravenous meb solution] Route: IV; Rate: 999 mL/hr; Site: right antecubital; 12:30 Follow up: Response: No adverse reaction; IV Status: jv2 Completed infusion; IV converted to saline lock; IV Intake: 1000ml 14:12 Drug: Fioricet 1 tabs Route: PO; jv2 15:00 Follow up: Response: No adverse reaction; Pain is jv2 decreased; Symptoms have improved. Intake: 12:30 IV: 1000ml; Total: 1000ml. jv2 Outcome: 14:43 Discharge ordered by . jtv 15:04 Patient verbalized understanding of disposition jv2 instructions. Patient has no functional deficits. 15:04 Patient discharged to home ambulatory, with significant other. 15:04 Condition: good Condition: improved 15:04 Discharge instructions given to patient, Patient was instructed on discharge instructions, follow up and referral plans, medication usage, no drinking with medication, no driving heavy equipment, safety practices, The regan barnes demonstrated understanding of instructions, medications, Prescriptions given X 1. 15:04 Vitals are Complete in accordance with Emergency Department Policy. 15:06 Patient left the ED. jv2 Signatures: Jannette Corea MD MD jtCherry Andrews RN RN sm6 Flores Milton RN RN jv2 Dione Pena RN RN Venessa Delcid cc4 Name Value Range Interpretation Code Description Data Mendy rce(s) Supporting Document(s) ID Date Data Source [id number] 02/06/2021 12:00:00 PM EDT [facility] Name Value Range Interpretation Code Description Data Mendy rce(s) Supporting Document(s) SARS coronavirus 2 RNA Not Detected [facility] [place] This lab was ordered by [facility] and reported by [facility]. ID Date Data Source [id number] 02/03/2021 11:05:00 AM EDT [facility] Name Value Range Interpretation Code Description Data Mendy rce(s) Supporting Document(s) SARS coronavirus 2 RNA Not Detected [facility] [place] This lab was ordered by [facility] and reported by [facility]. ID Date Data Source [id number] 01/31/2021 12:00:00 AM EDT [facility] Name Value Range Interpretation Code Description Data Mendy rce(s) Supporting Document(s) SARS coronavirus 2 RNA [Presence] in Res piratory specimen by MELI with probe detection Not Detected [facility] This lab was ordered by [facility] and reported by [facility]. ID Date Data Source [id number] 12/25/2020 10:00:00 AM EST [facility] Name Value Range Interpretation Code Description Data Mendy rce(s) Supporting Document(s) SARS coronavirus 2 RNA Not Detected [facility] [place] This lab was ordered by [facility] and reported by [facility]. Procedure Social History Code Duration Value Status Description Data Source(s ) Smoking 09/05/2021 12:00:00 AM EDT Never Smoker completed Never S moker eCW1 ([facility]) Smoking 08/01/2021 12:00:00 AM EDT Patient has never smoked co mpleted Patient has never smoked MEDENT ([facility]) Smoking 05/21/2021 07:45:47 AM EDT Never smoked tobacco (findi ng) completed Never smoked tobacco (finding) ISAAC ([facility]) Smoking 04/25/2021 04:20:12 PM EDT Never smoked tobacco (findi ng) completed Never smoked tobacco (finding) ISAAC ([facility]) Smoking 03/07/2021 12:00:00 AM EDT Never Smoker completed Never S moker eCW1 ([facility]) Smoking 03/04/2021 08:25:15 AM EDT Never smoked tobacco (findi ng) completed Never smoked tobacco (finding) ISAAC ([facility]) Smoking 02/05/2021 12:00:00 AM EDT Never Smoker completed Never S moker eCW1 ([facility]) Smoking 09/30/2020 02:39:28 PM EST Never smoked tobacco (findi ng) completed Never smoked tobacco (finding) ISAAC ([facility]) Vital Signs ID Date Data Source UNK Name Value Range Interpretation Code Description Data Source(s) Body weight 272.2 [lb_av] 272.2 [lb_av] eCW1 ([facility]) Body weight 123.47 kg 123.47 kg W1 ([facility]) Body height [in_i] W1 ([facility]) Body mass index (BMI) [Ratio] 41.38 kg/m2 41.38 kg/m2 W1 ([facility]) Systolic blood pressure 122 mm[Hg] 122 mm[Hg] e CW1 ([facility]) Diastolic blood pressure 68 mm[Hg] 68 mm[Hg] eCW1 ([facility]) Intraocular pressure Left eye 16 mm[Hg] 16 mm[ Hg] MEDENT ([facility]) Ra, Applanation 02:19 PM Intraocular pressure Right eye 17 mm[Hg] 17 mm [Hg] MEDENT ([facility]) Body mass index (BMI) [Ratio] 40.2 kg/m2 40.2 k g/m2 MEDENT ([facility]) Heart rate 80 /min 80 /min MEDENT ([facility]) Body height 68.75 [in_i] 68.75 [in_i] MEDENT ( [facility]) 5'8.75" Body weight 270.00 [lb_av] 270.00 [lb_av] MEDEN T ([facility]) Systolic blood pressure 134 mm[Hg] 134 mm[Hg] M EDENT ([facility]) RT Arm Diastolic blood pressure 80 mm[Hg] 80 mm[Hg] MEDENT ([facility]) RT Arm Body weight 256.2 [lb_av] 256.2 [lb_av] eCW1 ([facility]) Body height [in_i] eCW1 ([facility]) Body mass index (BMI) [Ratio] 50.03 kg/m2 50.03 kg/m2 eCW1 ([facility]) Systolic blood pressure 126 mm[Hg] 126 mm[Hg] e CW1 ([facility]) Diastolic blood pressure 88 mm[Hg] 88 mm[Hg] eCW1 ([facility]) Body weight 268.2 [lb_av] 268.2 [lb_av] eCW1 ([facility]) Body height [in_i] eCW1 ([facility]) Body mass index (BMI) [Ratio] 52.37 kg/m2 52.37 kg/m2 eCW1 ([facility]) Systolic blood pressure 148 mm[Hg] 148 mm[Hg] e CW1 ([facility]) Diastolic blood pressure 90 mm[Hg] 90 mm[Hg] eCW1 ([facility]) Patient Treatment Plan of Care Planned Activity Planned Date Details Description Data Source (s) Benzoyl Peroxide 0.05 MG/MG / Clindamycin 0.01 MG/MG T opical Gel [Benzaclin] 02/05/2021 12:00:00 AM EDT eCW1 ([facility]) Clindamycin 10 MG/ML Medicated Pad 02/05/2021 12:00:00 AM EDT eCW1 ([facility]) Benzoyl Peroxide 0.05 MG/MG / Clindamycin 0.01 MG/MG T opical Gel [Benzaclin] 02/05/2021 12:00:00 AM EDT eCW1 ([facility]) Clindamycin 10 MG/ML Medicated Pad 02/05/2021 12:00:00 AM EDT eCW1 ([facility]) Clindamycin 10 MG/ML Medicated Pad 02/05/2021 12:00:00 AM EDT eCW1 ([facility]) Benzoyl Peroxide 0.05 MG/MG / Clindamycin 0.01 MG/MG T opical Gel [Benzaclin] 02/05/2021 12:00:00 AM EDT eCW1 ([facility]) 12 HR Acetazolamide 500 MG Extended Release Oral Capsu le 10/31/2020 12:00:00 AM ARBEN GRAY ([facility])
--- OUTSIDE RECORDS SUMMARY | 2021-10-27 10:49 | CCD | Continuity of Care Document ---
Author Author Angi GARCIA M.D. Organization Unknown Address [address] [place] [id number] Phone [phone] Care Team Providers Care Pressing Machine Tender Name Role Phone Karson Guerrero M.D. [facility] [phone] Problems Active Problems Provider Date Chronic tension-type [...] lb BMI (Body Mass Index) 43.3 kg/m2 [place] Body Weight 140 lb Results Description No Information Available Procedures Date Code Description Status 08/06/2021 11132 Office/Outpatient Established Mo d MDM 30-39 Min Completed Medical Devices Description No Information Available Encounters Type Date Location Provider Dx Diagnosis Office Visit 08/06/2021 12:15p Main office - [place] Maggie Miller G43.711 Chronic migraine w/o aura, intractable, w status migrainosus G44.221 Chronic tension-type headach e, intractable G93.2 Benign intracranial hyperten melba Assessments Date Code Description Provider 08/06/2021 G43.711 Chronic migraine wit hout aura, intractable, with status migrainosus Rob Garcia M.D. 08/06/2021 G44.221 Chronic tension-type headache, i ntractable Rob Garcia M.D. 08/06/2021 G93.2 Benign intracranial hypertension Rob Garcia M.D. Plan of Treatment No Information Available Functional Status Description No Information Available Mental Status Description No Information Available Referrals Description No Information Available
--- OUTSIDE RECORDS SUMMARY | 2021-10-27 10:49 | CCD | Continuity of Care Document ---
Author Author Angi RASMUSSEN Organization Unknown Address [address] [facility] [address] [place] [address] Phone [phone] Care Team Providers Care Panel Sewer Name Role Phone Davina Rasmussen AUTM [phone] Problems Active Problems Provider Date Palpitations Drea Abraham FNP Onset: 01/29/2013 Infectious mononucleosis Malinda Laws, [place] Onset: 01/29 Asthma without status asthmaticus Drea [...] CPT Code Status Date Vaccine Lot # [id number] Given 11/19/2009 PPD 55477 Given 03/12/2009 PPD Vital Signs Date Vital [...] Result H/L Range Note Complete Blood Count 07/24/2021 [facility] Environmental Emergencies Planner: Dr Karson Guerrero [place], [place] [id number] [phone] WBC 9.8 x10*3/UL 4.1 - 10.9 RBC [...] 2.0 - 7.8 Comprehensive Chem Profile 07/24/2021 [facility] Environmental Emergencies Planner: Dr Kasron [place], [place] [address] [phone] Glucose 90 mg/dL 74 - 99 1 [...] LITTLE GFR LEFT ESRD GFR <15 ON EVENT SERVICES MANAGER Procedures Date Code Description Status 07/24/2021 16903 Est Prevent Med (18-39Yrs) Compl eted 03/13/2019 156561650 Diabetic Retinal Eye Exam Comple Cognea Description No Information Available Encounters Type Date Location Provider Dx Diagnosis Office Visit 07/24/2021 1:40p [facility] Davina flanagan, SUPERVISOR WET POUR Z00.00 Encntr for general adult medical exam [...] adult medi trey examination without abno Davina Valery, [facility] 07/24/2021 J30.9 Allergic rhinitis, unspecified J kavin Valery, [facility] 07/24/2021 H47.10 Unspecified papilledema Davina Valery, [facility] 07/24/2021 L73.2 Hidradenitis suppurativa Davina Valery, [facility] 07/24/2021 I10 Essential (primary) hypertension Davina Valery, [facility] 07/24/2021 E78.00 Pure hypercholesterolemia, unspe cified Davina Valery, [facility] 07/24/2021 Z33.1 state, incidental Floresi beverly Valery, [facility] 07/24/2021 E66.01 Morbid (severe) obesity due to e xcess calories Davina Rasmussen, [facility] 07/24/2021 Z68.41 Body mass index [BMI] 40.0-44.9, adult Davina Rasmussen, [facility] 07/24/2021 Z13.89 Encounter for screening for othe r disorder NIELS Morales Plan of Treatment Future Appointment(s):* 07/27/2022 10:40 am - NIELS Morales at [facility] 07/24/2021 - NIELS Morales* Z00.00 [...] * L73.2 Hidradenitis suppurativa* Comments:* Followed with [facility] derm; has PRN treatment with Clindet wipes [...]
--- OUTSIDE RECORDS SUMMARY | 2021-10-27 10:49 | CCD | Continuity of Care Document ---
Author Author Angi VELASQUEZ DO Organization Unknown Address [address] [place] [address] Phone [phone] Care Team Providers Care Machine Woodworking Sander Name Role Phone Rob Garcia MD AUTM [phone] Marj Rasmussen AUTM [phone] Problems Active Problems Provider Date Benign intracranial [...] Available Procedures Date Code Description Status 08/01/2021 62714 Comprehensive Exam New Patient C ompleted Medical [...]
--- OUTSIDE RECORDS SUMMARY | 2021-10-27 10:49 | CCD | Continuity of Care Document ---
Author Author Angi Nam Organization Unknown Address [address] [facility] [address] [place] [address] Phone [phone] Care Team Providers Care All Terrain Vehicle Technician Name Role Phone Davina Rasmussen NIELS AUTM [phone] Problems Active Problems Provider Date Palpitations Drea Abrhaam FNP Onset: 01/29/2013 Infectious mononucleosis Malinda Laws, [...] CPT Code Status Date Vaccine Lot # [id number] Given 11/19/2009 PPD 13233 Given 03/12/2009 PPD Vital Signs Date Vital [...] Date Facility Test Result H/L Range Note Laboratory test finding 08/14/2021 [facility] [address] [place], [place] [id number] [phone] Potassium Serum 3.8 mEq/L Normal 3.5-5.1 Complete Blood Count 07/24/2021 [facility] Radiographer Technologist: [place] [address] [phone] WBC 9.8 x10*3/UL 4.1 - 10.9 RBC [...] 2.0 - 7.8 Comprehensive Chem Profile 07/24/2021 [facility] Radiographer Technologist: Dr Karson Guerrero [place], [place] [address] [phone] Glucose 90 mg/dL 74 - 99 1 [...] LITTLE GFR LEFT ESRD GFR <15 ON VISITOR USE ASSISTANT Procedures Date Code Description Status 08/01/2021 [id number] Diabetic Retinal Eye Exam Comple [facility] 07/24/2021 54226 Est Prevent Med (18-39Yrs) Compl eted 03/13/2019 [id number] Diabetic Retinal Eye Exam Comple [facility] Medical Devices Description No Information Available Encounters Type Date Location Provider Dx Diagnosis Office Visit 07/24/2021 1:40p [facility] Davina flanagan, POULTRY HATCHERY MANAGER Z00.00 Encntr for general adult medical exam [...] medi trey examination without abno Davina Rasmussen, [facility] 07/24/2021 J30.9 Allergic rhinitis, unspecified J kavin Rasmussen, [facility] 07/24/2021 H47.10 Unspecified papilledema Davina Rasmussen, [facility] 07/24/2021 L73.2 Hidradenitis suppurativa Davina Rasmussen, [facility] 07/24/2021 I10 Essential (primary) hypertension Davina Rasmussen, [facility] 07/24/2021 E78.00 Pure hypercholesterolemia, unspe cified Davina Rasmussen, [facility] 07/24/2021 Z33.1 state, incidental Floresi beverly Valery, [facility] 07/24/2021 E66.01 Morbid (severe) obesity due to e xcess calories Davina Rasmussen, [facility] 07/24/2021 Z68.41 Body mass index [BMI] 40.0-44.9, adult Davina Rasmussen, [facility] 07/24/2021 Z13.89 Encounter for screening for othe r disorder NIELS Morales Plan of Treatment Future Appointment(s):* 07/27/2022 10:40 am - NIELS Morales at [facility] 07/24/2021 - NIELS Morales* Z00.00 [...] * L73.2 Hidradenitis suppurativa* Comments:* Followed with [facility] derm; has PRN treatment with Clindet wipes [...]
[2021-10-27] MEDS ORDERED: BICITRA 30ML SOLN UDC PO ONE (10:50)
[2021-10-27] MEDS ORDERED: CARBOPROST TROMETHAMINE 250 MCG/ML AMP IM PRN (10:50)
[2021-10-27] MEDS ORDERED: LR 1,000 ML IV SCH ×2 (10:50→14:10)
[2021-10-27] MEDS ORDERED: OXYTOCIN DRIP 30 UNITS in IV 1 EA IV PRN (10:50)
[2021-10-27] MEDS ORDERED: LABETALOL 100MG/20ML VIAL IV STA (10:50)
[2021-10-27] MEDS ORDERED: TRANEXAMIC ACID INJection 1,000 MG in NS 100 ML IV PRN (10:50)
[2021-10-27] MEDS ORDERED: CLINDAMYCIN 900 MG in IV 1 EA IV ONE (11:05)
[2021-10-27] MEDS ORDERED: HOME MED LIST COMPLETE! XX SCH (11:10)
[2021-10-27 11:37] LABS: HEMOGLOBIN 11.8 g/dl (12.0-15.5); MEAN CORPUSCULAR HEMOGLOBIN 30.1 pg (27.0-33.0); MEAN CORPUSCULAR HGB CONC 32.8 g/dl (32.0-36.5); MEAN CORPUSCULAR VOLUME 91.8 fl (80.0-96.0); PLATELET COUNT, AUTOMATED 248 10^3/uL (150-450); RED BLOOD COUNT 3.92 10^6/uL (4.00-5.40); WHITE BLOOD COUNT 9.6 10^3/uL (4.0-10.0)
[2021-10-27] MEDS ORDERED: GENTAMICIN 400 MG in D5W 100 ML IV ONE (12:00)
[2021-10-27 12:06] LABS: ALT/SGPT 14 U/L (12-78); BILIRUBIN,TOTAL 0.2 MG/DL (0.2-1.0); CREATININE FOR GFR 0.49 MG/DL (0.55-1.30); GLOMERULAR FILTRATION RATE > 60.0 (>60); LDH LACTATE DEHYDROGENASE 190 U/L (84-246); URIC ACID 3.6 MG/DL (2.6-6.0)
[2021-10-27 12:27] LABS: CREATININE,RANDOM URINE 19.9 MG/DL; TOTAL PROTEIN,RANDOM URINE < 5.0 MG/DL (0.0-12.0)
[2021-10-27] MEDS ORDERED: MORPHINE PRES-FREE INJ 10 MG/10 ML VIAL (J2274) As Ordered ONE (12:33)
[2021-10-27] MEDS ORDERED: ONDANSETRON 4MG/2ML VIAL As Ordered ONE (12:33)
[2021-10-27] MEDS ORDERED: OXYTOCIN 30 UNITS IN 0.9% NaCl 500ML IV BAG (J2590) As Ordered ONE ×2 (12:33→13:47)
[2021-10-27] MEDS ORDERED: NALBUPHINE HCL 10 MG/ML AMP (J2300) IV PRN (12:42)
[2021-10-27] MEDS ORDERED: diphenhydrAMINE 50MG/ML VIAL (J1200) IV PRN (12:42)
[2021-10-27] MEDS ORDERED: METOCLOPRAMIDE INJ 10MG/2ML VIAL (J2765 PER 1) IV PRN (12:42)
[2021-10-27] MEDS ORDERED: NALOXONE INJ 0.4MG/1ML VIAL (J2310 PER 1MG) IV PRN ×2 (12:42)
[2021-10-27] MEDS ORDERED: ONDANSETRON 4MG/2ML VIAL IV PRN ×2 (12:42→14:10)
--- NOTE | 2021-10-27 12:48 | HPE ---
HISTORY AND PHYSICAL DATE OF ADMISSION: 10/27/2021 HISTORY OF PRESENT ILLNESS: Angi is a 31-year-old female 3 para 1-0-1-1 with an EDC of 11/25/2021. EGA 35 and 2/7th weeks gestation who was being followed for preeclampsia. She presented to the office with an intractable headache and nausea and severely elevated blood pressure. After extensive counseling, a decision was made to admit the patient. She does have a history of prior section and we agreed to proceed with repeat section. She also desires permanent tubal sterilization for which she will have both tubes removed. Patient was seen and evaluated in Labor and Delivery for a similar complaint. She had an elevated protein creatinine ratio of 0.7. Her 24 hour urine collection was done which resulted over 319. Her headache is getting worse. She is having some nausea. She did receive a steroid during her last admission to the hospital for lung maturity. Given all of the above, a decision was made to proceed with the section. PAST MEDICAL HISTORY: Significant for increased intracranial pressure, she has had multiple spinal taps. SOCIAL HISTORY: She denies any alcohol, drugs or cigarette smoking. REVIEW OF SYSTEMS: Unremarkable. MEDICATION: vitamin. Propanolol. ALLERGIES: Cephalexin. FAMILY HISTORY: Unremarkable. PHYSICAL EXAMINATION: Obese female in no acute distress. Abdomen is soft, nontender and nondistended. Extremities: No clubbing or cyanosis. She has +2 lower extremity edema. DTRs are 2/4 bilaterally. ASSESSMENT: 1. 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 2. Severe preeclampsia, remote from delivery. 3. History of prior section. 4. Desires permanent tubal sterilization. PLAN: Admit the patient as above. We will proceed with repeat section and bilateral tubal ligation in the form of bilateral removal of both tubes. Both patient and her partner counseled extensively. The risks and benefit of delivery discussed as well as risks of prematurity. Given her persistent headache and now nausea, a decision was made to proceed with a section immediately. Patient also counseled on potential need for magnesium sulfate and for extensive control of her high blood pressure. cc: [facility]
[2021-10-27] MEDS ORDERED: PHENYLephrine 500MCG 5ML (100MCG/ML) SYRINGE As Ordered ONE (12:49)
[2021-10-27] MEDS ORDERED: ePHEDrine SULFATE 25 MG/5 ML(5MG/ML) SYRINGE As Ordered ONE (12:49)
[2021-10-27] MEDS ORDERED: ACETAMINOPHEN 1000MG 100ML IV BTL (OFIRMEV) (J0131 PER 10MG) As Ordered ONE (12:51)
[2021-10-27] MEDS ORDERED: METOCLOPRAMIDE INJ 10MG/2ML VIAL (J2765 PER 1) As Ordered ONE (13:09)
[2021-10-27 13:18] LABS: CORD GAS ABE V -3.1; CORD GAS HCO3 V 22.8 MEQ/L; CORD GAS O2 SAT V 63.3 %; CORD GAS PH V 7.333 UNITS; CORD GAS PO2 V 25.5 mmHg; CORD GAS SBC V 21.2 MEQ/L; CORD GAS TCO2 V 24.2 MEQ/L
[2021-10-27 13:19] LABS: CORD GAS ABE A -5.4; CORD GAS O2 SAT A 52.9 %; CORD GAS PCO2 A 50.5 mmHg; CORD GAS PH A 7.257 UNITS; CORD GAS PO2 A 22.9 mmHg; CORD GAS SBC A 19.1 MEQ/L; CORD GAS TCO2 A 23.6 MEQ/L
[2021-10-27] MEDS ORDERED: ONDANSETRON 4 MG TAB PO PRN (13:40)
[2021-10-27] MEDS ORDERED: MOM 30ML SUSPENSION UDC PO PRN (13:40)
[2021-10-27] MEDS ORDERED: OXYTOCIN DRIP 30 UNITS in IV 1 EA IV SCH (13:40)
[2021-10-27] MEDS ORDERED: RHOGAM 300 MCG (1500 IU) INJ (J2790) IM SCH (13:40)
[2021-10-27] MEDS ORDERED: MEASLES,MUMPS,RUBELLA VACCINE INJ (MMR-II) (90707) SC SCH (13:40)
[2021-10-27] MEDS ORDERED: SIMETHICONE 80MG CHEW TAB PO PRN (13:40)
[2021-10-27] MEDS ORDERED: fentaNYL 100 MCG/2 ML INJECTION (J3010) IV PRN (14:10)
[2021-10-27] MEDS ORDERED: PERCOCET 5MG/325MG TAB PO PRN (14:10)
[2021-10-27] MEDS ORDERED: KETOROLAC 30 MG/ML 1ML VIAL As Ordered ONE (14:10)
[2021-10-27] MEDS ORDERED: KETOROLAC 30 MG/ML 1ML VIAL IV PRN (14:15)
[2021-10-27] MEDS: PRENATAL VITAMINS CHEWABLE TABLET PO SCH (15:49)
[2021-10-27] MEDS: DOCUSATE SODIUM 100MG CAPSULE PO SCH (21:04)
[2021-10-28] VITALS (7 sets, daily range): BP systolic 109–145; BP diastolic 59–78
[2021-10-28] MEDS: PERCOCET 5MG/325MG TAB PO PRN ×4 (00:36→20:14)
--- NOTE | 2021-10-28 07:00 | RO ---
OPERATIVE NOTE DATE OF OPERATION: 10/27/2021 Angi is a 31-year-old female, 3, para 1-0-1-1, who was admitted at 35 weeks gestation with a history of prior section with severe preeclampsia. The patient also desires permanent tubal sterilization. After counseling, the decision was made to proceed with a section and bilateral tubal ligation in the form of bilateral salpingectomy. PREOPERATIVE DIAGNOSIS: 1. Intrauterine at 35 weeks with a history of prior section. 2. Severe preeclampsia. 3. Desires tubal ligation. POSTOPERATIVE DIAGNOSIS: 1. Intrauterine at 35 weeks with a history of prior section. 2. Severe preeclampsia. 3. Desires tubal ligation. 4. Double footling breech. PROCEDURE: Repeat section. Breech extraction. Revision of old scar. Bilateral salpingectomy. SURGEON: Alvarez Flores DO QUARTZ CUTTER: Adriana Mena CNM ANESTHESIA: Spinal COMPLICATIONS: None. ESTIMATED BLOOD LOSS: 700 mL FINDINGS: Live female infant in double footling breech position, 9-9, weight 6 lb, 6 oz, normal appearing tubes and ovaries. DESCRIPTION OF PROCEDURE: After obtaining informed consent, the patient was taken to the operating room. Once spinal anesthetic was found to be adequate, she was then draped and prepped in the usual sterile fashion in the supine position. At this point, with the help of Adriana Mena CNM, an elliptical incision was made over the old scar. The old scar was removed. The incision was then carried down to the fascia. The fascia was incised in a midline fashion and carried through laterally. The superior aspect of the fascia was then grasped with a Eleazar clamp and dissected off the rectus muscles sharply. The inferior aspect was dissected off in a similar fashion. The rectus muscles were in midline fashion. The peritoneum was identified. The peritoneal cavity was entered bluntly. Superior and inferior dissection of the peritoneum was then done with good visualization of the bladder. At this point, a Mobius skin retractor was placed. A low transverse uterine incision was made. The infant was delivered in an atraumatic fashion via breech extraction. The nose and mouth were bulb suctioned. The cord was doubly clamped and cut and the infant was handed over to the awaiting warmer. Cord blood and cord gas were sent. The placenta was removed manually. The uterus was cleared of all clot and debris and the uterine incision was then repaired in two separate layers of 0 Vicryl sutures. At this point, attention turned to the fallopian tube where the fimbriated ends were identified. Using two large Kellys, the entire mesosalpinx was clamped and using the Bovie, the tube was removed all the way down to the fimbriated end. We then sutured the mesosalpinx using 3-0 Chromic suture. Good hemostasis noted. Attention turned to the other side and this was done in a similar fashion. At this point, both tubes were dropped back in the abdomen. The pelvis copiously irrigated with normal saline and suctioned out. Attention turned to the peritoneum which was closed in a running fashion using 2-0 Vicryl. The fascia was closed in two separate segments of 0 Vicryl sutures. All superficial bleeders were coagulated and the skin was reapproximated in a subcuticular fashion using 3-0 Vicryl on a Bharath. Steri-Strips were placed. The patient tolerated the procedure well. She was then transferred to recovery room in stable condition. [facility]
[2021-10-28] MEDS: DOCUSATE SODIUM 100MG CAPSULE PO SCH ×2 (07:40→20:14)
[2021-10-28] MEDS: PRENATAL VITAMINS CHEWABLE TABLET PO SCH (07:40)
[2021-10-28] MEDS: acetaZOLAMIDE 250 MG TAB PO SCH (07:40)
[2021-10-28 08:28] LABS: HEMATOCRIT 33.1 % (36.0-47.0); HEMOGLOBIN 10.7 g/dl (12.0-15.5); MEAN CORPUSCULAR HEMOGLOBIN 30.1 pg (27.0-33.0); MEAN CORPUSCULAR HGB CONC 32.3 g/dl (32.0-36.5); MEAN CORPUSCULAR VOLUME 93.2 fl (80.0-96.0); PLATELET COUNT, AUTOMATED 230 10^3/uL (150-450); RED BLOOD COUNT 3.55 10^6/uL (4.00-5.40); WHITE BLOOD COUNT 11.7 10^3/uL (4.0-10.0)
--- NOTE | 2021-10-28 09:53 | IPNPDOC ---
Progress Note Date of Service: Oct 28, 2021 Day#: 1 Progress Note SUBJECT: Angi is a 31-year-old female who had a repeat section done yesterday due to preeclampsia with severe features. She had a living female. She has been ambulating today, voiding, and eating a regular diet. She reports her pain has been managed well. Denies preeclamptic symptoms. OBJECTIVE: VITAL SIGNS: see below. Alert and oriented times three. Respiratory rate is regular without use of accessory muscles. Abdomen: Fundus firm. Dressing intact without any erythema or drainage. Minimal lochia. ASSESSMENT: Day 1 postoperative, preeclampsia with severe features. PLAN: 1. Continue supportive nursing care. 2. Patient to shower, ambulate and remove dressing today. 3. Anticipate discharge to home tomorrow. VS, I&O, 24H, Fishbone Vital Signs/I&O Vital Signs Date Time Temp Pulse Resp B/P (MAP) Pulse Ox O2 Delivery O2 Flow Rate FiO2 10/28/21 07:41 16 10/28/21 05:48 97.4 70 109/59 (76) 99 Room Air I&O- Last 24 Hours up to 6 AM 10/28/21 06:00 Intake Total 2504 ml Output Total 2210 ml Balance 294 ml Laboratory Data 24H LABS Laboratory Tests 2 10/27/21 10:47: Serology Scanned Report Hepatitis B Testing 10/27/21 11:18: Urine Random Creatinine 19.9, Urine Random Total Protein < 5.0 10/27/21 11:19: Nucleated Red Blood Cells % (auto) 0.0 10/27/21 11:20: Glomerular Filtration Rate > 60.0, Uric Acid 3.6, Total Bilirubin 0.2, Aspartate Amino Transf (AST/SGOT) 10, Alanine Aminotransferase (ALT/SGPT) 14, Lactate Dehydrogenase 190, Syphilis Serology NONREACTIVE 10/27/21 11:27: Coronavirus (COVID-19)(PCR) NEGATIVE 10/27/21 13:07: Cord Arterial Blood pH 7.257, Cord Arterial Blood PCO2 50.5, Cord Arterial Blood PO2 22.9, Cord Arterial Blood HCO3 22.0, Cord Arterial Blood Total CO2 23.6, Cord Arterial Blood Base Excess -5.4, Cord Arterial Base Excess (Standard 19.1, Cord Arterial Bld Oxygen Saturation 52.9, Cord Venous Blood pH 7.333, Cord Venous Blood PCO2 44.0, Cord Venous Blood PO2 25.5, Cord Venous Blood HCO3 22.8, Cord Venous Blood Total CO2 24.2, Cord Venous Base Excess (Actual) -3.1, Cord Venous Base Excess (Standard) 21.2, Cord Venous Blood Oxygen Saturation 63.3 10/28/21 07:56: Nucleated Red Blood Cells % (auto) 0.0 CBC/BMP Laboratory Tests 10/27/21 11:19 10/27/21 11:20 10/28/21 07:56 LIANNA ALFARO CNM Oct 28, 2021 09:53
[2021-10-28] MEDS ORDERED: KETOROLAC 30 MG/ML 1ML VIAL IV ONE (13:25)
[2021-10-28] MEDS ORDERED: ANUSOL HC CREAM 30GM TOP PRN (13:25)
[2021-10-28] MEDS ORDERED: FLEET ENEMA PR PRN (13:25)
[2021-10-29] MEDS: PERCOCET 5MG/325MG TAB PO PRN ×3 (00:25→10:26)
[2021-10-29] MEDS: IBUPROFEN 800 MG TAB PO SCH ×2 (01:02→05:58)
[2021-10-29 02:00] VITALS: BP 137/67
[2021-10-29 06:00] VITALS: BP 130/73
[2021-10-29] MEDS: acetaZOLAMIDE 250 MG TAB PO SCH (08:43)
[2021-10-29] MEDS: DOCUSATE SODIUM 100MG CAPSULE PO SCH (08:43)
[2021-10-29] MEDS: PRENATAL VITAMINS CHEWABLE TABLET PO SCH (08:43)
[2021-10-29 10:00] VITALS: BP 146/89
[2021-10-29] MEDS ORDERED: IBUP80TA PO (11:06)
--- NOTE | 2021-10-29 13:14 | DSES ---
DISCHARGE SUMMARY DATE OF ADMISSION: 10/27/2021 DATE OF DISCHARGE: 10/29/2021 DISCHARGE DIAGNOSIS: 1. Repeat section postop day #2, stable condition. 2. Preeclampsia with severe features, resolved, stable for discharge. SURGEON: Dr. Alvarez Flores HISTORY: Angi is a 31-year-old 3 para 1-1-1-2 now who was admitted at 35 weeks gestation with preeclampsia and severe features and a history of a prior section with a planned repeat with a desire for tubal ligation. The decision was made to proceed with repeat section following betamethasone for lung maturity. The patient had a spot urine of 0.70 with severe range pressures. She underwent a repeat section. She delivered a live fetus female that weighed 6 pounds, 6 ounces, Apgars were 9 and 9. She also underwent tubal ligation. She had an estimated blood loss of 700 ml. Her postoperative course has been uncomplicated. She has been out of bed for self-care, natalia-care and incision care. She is breast-feeding without difficulty, tolerating p.o. fluids and a regular diet. She is voiding without problems. Positive flatus reported. Her pain has been very well managed with p.o. Ibuprofen and she does request discharge home. OBJECTIVE: Temperature is 99.2, pulse is 63, respirations are 18, BP today is 130/73. She is alert and oriented x3. Her preoperative CBC on 10/27/21 with a hemoglobin of 11.8, hematocrit 36, platelets are 248,000. Postoperative CBC on 10/28/21 with a hemoglobin of 10.7, hematocrit 33.1 and platelets are 230,000. Her breasts are soft and nontender. Nipples are intact. Abdomen: Fundus firm at umbilicus. Her incision is intact, well-approximated. Steri-Strips are still in place. There is no new drainage, redness, warmth or edema observed. The perineum is intact with lochia, rubra scant. Bilateral lower extremities with +1 pitting edema. PLAN: Discharge the patient home. She is to follow-up at [facility] for a two week incision check and an [address] Flores. I did review discharge instructions that include breast care, incision are, natalia-care, pelvic rest, activity and lifting restrictions, danger signs to report, as well as access to her care provider. She and her have had their questions answered and do request discharge home.
== END 2021-10-29 11:45 | disposition home or self-care (01) | DRG 540 ==
LOC: M LDO 10:36 → M LDI 10:44 → M OBS 15:15
PROVIDERS: ADMIT Obstetrics & Gynecology; ATTEND Obstetrics & Gynecology
PROC: 0UB70ZZ Excision of Bilateral Fallopian Tubes, Open Approach (ICD-10-PCS; 2021-10-27)
PROC: 10D00Z1 Extraction of Products of Conception, Low, Open Approach (ICD-10-PCS; principal; 2021-10-27 12:03)
DX: O14.24 HELLP syndrome, complicating childbirth (principal); O32.1XX0 Maternal care for breech presentation, not applicable or unspecified; Z37.0 Single live birth; Z3A.35 35 weeks gestation of pregnancy; O34.211 Maternal care for low transverse scar from previous cesarean delivery

== ENCOUNTER → 2022-07-14 | Outpatient (REF) | payer BC ==
[~2022-07-14] MED LIST changes: +IBUP80TA PO; -LABE100T4 PO; +LABE100T6 PO; -POTA10TA14 PO; +POTA1TAB24 PO
[2022-07-14 15:33] LABS: HEMATOCRIT 37.8 % (36.0-47.0); HEMOGLOBIN 12.4 g/dl (12.0-15.5)
== END ==
LOC: M LAB REF 14:57
PROVIDERS: ATTEND Registered Nurse
DX: N92.0 Excessive and frequent menstruation with regular cycle (principal)

== ENCOUNTER → 2022-07-28 | Outpatient (REF) | LOC: M EMP 09:32 | PROVIDERS: ATTEND Family Medicine | DX: Z11.52 Encounter for screening for COVID-19 (principal) ==

== ENCOUNTER → 2022-07-29 | Outpatient (REF) | payer BC ==
[2022-07-29 10:44] LABS: ALBUMIN 3.9 GM/DL (3.2-5.2); ALT/SGPT 21 U/L (12-78); BILIRUBIN,TOTAL 0.4 MG/DL (0.2-1.0); BLOOD UREA NITROGEN 15 MG/DL (7-18); CALCIUM LEVEL 9.6 MG/DL (8.5-10.1); CARBON DIOXIDE LEVEL 24 MEQ/L (21-32); CHLORIDE LEVEL 110 MEQ/L (98-107); CHOLESTEROL LEVEL 226 MG/DL (<200); CHOLESTEROL RISK RATIO 4.913 (<5); CREATININE FOR GFR 0.77 MG/DL (0.55-1.30); GLOMERULAR FILTRATION RATE > 60.0 (>60); GLUCOSE, FASTING 95 MG/DL (70-100); HDL CHOLESTEROL 46 MG/DL (>40); LDL CHOLESTEROL 151 MG/DL (<100); NON-HDL-C 180 MG/DL; POTASSIUM SERUM 4.1 MEQ/L (3.5-5.1); SODIUM LEVEL 139 MEQ/L (136-145); TOTAL PROTEIN 7.6 GM/DL (6.4-8.2); TRIGLYCERIDES LEVEL 147 MG/DL (<150)
[2022-07-29 11:51] LABS: BASO % 0.6 % (0.0-1.0); EOS # 0.2 10^3/uL (0.0-0.5); EOS % 2.8 % (0.0-3.0); HEMATOCRIT 41.2 % (36.0-47.0); HEMOGLOBIN 13.2 g/dl (12.0-15.5); LYMPH # 2.4 10^3/uL (1.5-5.0); LYMPH % 35.6 % (24.0-44.0); MEAN CORPUSCULAR HEMOGLOBIN 29.2 pg (27.0-33.0); MEAN CORPUSCULAR VOLUME 91.2 fl (80.0-96.0); MONO # 0.5 10^3/uL (0.0-0.8); MONO % 7.1 % (2.0-8.0); NEUTROPHILS # 3.6 10^3/uL (1.5-8.5); NEUTROPHILS % 53.5 % (36.0-66.0); PLATELET COUNT, AUTOMATED 252 10^3/uL (150-450); RED BLOOD COUNT 4.52 10^6/uL (4.00-5.40); WHITE BLOOD COUNT 6.8 10^3/uL (4.0-10.0)
== END ==
LOC: M LAB REF 09:49
PROVIDERS: ATTEND Registered Nurse
DX: Z00.00 Encounter for general adult medical examination without abnormal findings (principal)

== ENCOUNTER → 2022-08-28 | Outpatient (REF) ==
[2022-08-28 11:39] LABS: RSV AMPLIFICATION NEGATIVE (NEGATIVE)
== END ==
LOC: M EMP 09:49
PROVIDERS: ATTEND Family Medicine
DX: Z20.822 Contact with and (suspected) exposure to COVID-19 (principal)

== ENCOUNTER → 2022-10-26 | Outpatient (REF) | payer BC ==
[2022-10-26 13:01] LABS: HEMOGLOBIN A1c 4.9 % (4.0-6.0)
== END ==
LOC: M LAB REF 10:46
PROVIDERS: ATTEND Surgery
DX: Z86.39 Personal history of other endocrine, nutritional and metabolic disease (principal)

== ENCOUNTER → 2022-12-25 | Outpatient (REF) ==
[2022-12-25 10:07] LABS: RSV AMPLIFICATION NEGATIVE (NEGATIVE)
== END ==
LOC: M EMP 08:31
PROVIDERS: ATTEND Family Medicine
DX: Z11.59 Encounter for screening for other viral diseases (principal)

== ENCOUNTER → 2023-01-18 | Outpatient (REF) | payer BC | LOC: M SFHCDERM 14:27 | PROVIDERS: ATTEND Physician Assistant | DX: I78.1 Nevus, non-neoplastic (principal) ==

== ENCOUNTER → 2023-03-23 | Outpatient (REF) | payer BC ==
[2023-03-23 14:59] LABS: BASO % 0.8 % (0.0-1.0); EOS # 0.2 10^3/uL (0.0-0.5); EOS % 3.5 % (0.0-3.0); HEMATOCRIT 39.5 % (36.0-47.0); HEMOGLOBIN 11.8 g/dl (12.0-15.5); LYMPH # 2.1 10^3/uL (1.5-5.0); LYMPH % 43.5 % (24.0-44.0); MEAN CORPUSCULAR HEMOGLOBIN 27.7 pg (27.0-33.0); MEAN CORPUSCULAR HGB CONC 29.9 g/dl (32.0-36.5); MEAN CORPUSCULAR VOLUME 92.7 fl (80.0-96.0); MONO # 0.4 10^3/uL (0.0-0.8); NEUTROPHILS # 2.1 10^3/uL (1.5-8.5); PLATELET COUNT, AUTOMATED 178 10^3/uL (150-450); RED BLOOD COUNT 4.26 10^6/uL (4.00-5.40); WHITE BLOOD COUNT 4.9 10^3/uL (4.0-10.0)
[2023-03-23 15:12] LABS: HEMATOCRIT 38.6 % (36.0-47.0)
[2023-03-23 15:17] LABS: HEMOGLOBIN A1c 4.8 % (4.0-6.0)
[2023-03-23 15:30] LABS: TOTAL IRON BINDING CAPACITY 220 UG/DL (250-425)
[2023-03-23 15:31] LABS: ALBUMIN 3.5 G/DL (3.2-5.2); ALKALINE PHOSPHATASE 54 U/L (46-116); ALT/SGPT 72 U/L (7.0-40); AST/SGOT 46 U/L (<34); BILIRUBIN,TOTAL 0.4 MG/DL (0.3-1.2); BLOOD UREA NITROGEN 6 MG/DL (9-23); CARBON DIOXIDE LEVEL 26 MMOL/L (20-31); CHLORIDE LEVEL 109 MMOL/L (98-107); CREATININE FOR GFR 0.59 MG/DL (0.55-1.30); FERRITIN 40.4 NG/ML (7.3-270.7); GLOMERULAR FILTRATION RATE > 60.0 (>60); GLUCOSE, FASTING 113 MG/DL (60-100); IRON (FE) 42 UG/DL (50-170); MAGNESIUM LEVEL 1.7 MG/DL (1.8-2.4); PERCENT SATURATION 19.1 % (13.2-45.0); PHOSPHORUS LEVEL 2.4 MG/DL (2.5-4.9); POTASSIUM SERUM 3.2 MMOL/L (3.5-5.1); SODIUM LEVEL 143 MMOL/L (136-145); TOTAL 25(OH) VITAMIN D 46.8 NG/ML (20.0-100.0); TOTAL PROTEIN 6.2 G/DL (5.7-8.2); VITAMIN B12 LEVEL 1239 PG/ML (211-911)
== END ==
LOC: M LAB REF 13:47
PROVIDERS: ATTEND Surgery
DX: K91.2 Postsurgical malabsorption, not elsewhere classified (principal); E55.9 Vitamin D deficiency, unspecified; Z98.84 Bariatric surgery status

== ENCOUNTER → 2023-03-24 | Outpatient (REF) | payer BC | LOC: M LAB REF 17:12 | PROVIDERS: ATTEND Surgery | DX: K91.2 Postsurgical malabsorption, not elsewhere classified (principal); E55.9 Vitamin D deficiency, unspecified; Z98.84 Bariatric surgery status ==

== ENCOUNTER → 2023-04-05 | Outpatient (REF) | payer BC ==
[2023-04-05 16:00] LABS: BASO % 0.6 % (0.0-1.0); EOS # 0.2 10^3/uL (0.0-0.5); EOS % 2.4 % (0.0-3.0); HEMATOCRIT 39.8 % (36.0-47.0); HEMOGLOBIN 12.1 g/dl (12.0-15.5); LYMPH # 2.8 10^3/uL (1.5-5.0); LYMPH % 39.3 % (24.0-44.0); MEAN CORPUSCULAR HEMOGLOBIN 28.5 pg (27.0-33.0); MEAN CORPUSCULAR HGB CONC 30.4 g/dl (32.0-36.5); MEAN CORPUSCULAR VOLUME 93.9 fl (80.0-96.0); MONO # 0.7 10^3/uL (0.0-0.8); MONO % 10.1 % (2.0-8.0); NEUTROPHILS # 3.4 10^3/uL (1.5-8.5); NEUTROPHILS % 47.5 % (36.0-66.0); PLATELET COUNT, AUTOMATED 224 10^3/uL (150-450); RED BLOOD COUNT 4.24 10^6/uL (4.00-5.40); WHITE BLOOD COUNT 7.2 10^3/uL (4.0-10.0)
[2023-04-05 16:24] LABS: BLOOD UREA NITROGEN 8 MG/DL (9-23); CALCIUM LEVEL 9.1 MG/DL (8.5-10.1); CARBON DIOXIDE LEVEL 23 MMOL/L (20-31); CHLORIDE LEVEL 109 MMOL/L (98-107); CREATININE FOR GFR 0.63 MG/DL (0.55-1.30); GLOMERULAR FILTRATION RATE > 60.0 (>60); GLUCOSE, FASTING 77 MG/DL (60-100); POTASSIUM SERUM 3.8 MMOL/L (3.5-5.1); SODIUM LEVEL 141 MMOL/L (136-145)
== END ==
LOC: M LAB REF 14:50
PROVIDERS: ATTEND Physician Assistant Surgical
DX: K91.2 Postsurgical malabsorption, not elsewhere classified (principal); E87.6 Hypokalemia; R53.1 Weakness; Z98.84 Bariatric surgery status

== ENCOUNTER 2023-06-11 12:08 | Emergency (ER) | payer BC ==
[~2023-06-11] VITALS: Ht 172.7 cm; Wt 109.8 kg
[2023-06-11 13:35] LABS: BASO % 0.4 % (0.0-1.0); EOS # 0.2 10^3/uL (0.0-0.5); EOS % 2.2 % (0.0-3.0); HEMATOCRIT 38.5 % (36.0-47.0); HEMOGLOBIN 12.5 g/dl (12.0-15.5); LYMPH # 2.9 10^3/uL (1.5-5.0); LYMPH % 42.8 % (24.0-44.0); MEAN CORPUSCULAR HEMOGLOBIN 29.5 pg (27.0-33.0); MEAN CORPUSCULAR HGB CONC 32.5 g/dl (32.0-36.5); MEAN CORPUSCULAR VOLUME 90.8 fl (80.0-96.0); MONO # 0.6 10^3/uL (0.0-0.8); MONO % 8.2 % (2.0-8.0); NEUTROPHILS # 3.1 10^3/uL (1.5-8.5); NEUTROPHILS % 46.3 % (36.0-66.0); PLATELET COUNT, AUTOMATED 196 10^3/uL (150-450); RED BLOOD COUNT 4.24 10^6/uL (4.00-5.40); WHITE BLOOD COUNT 6.7 10^3/uL (4.0-10.0)
[2023-06-11 13:47] LABS: CK-MB VALUE MASS < 1.0 NG/ML (<3.6)
[2023-06-11 13:48] LABS: LIPASE 36 U/L (12-53)
[2023-06-11 13:49] LABS: HCG, SERUM QUALITATIVE NEGATIVE (NEGATIVE)
[2023-06-11 13:50] LABS: ALBUMIN 3.9 G/DL (3.2-5.2); ALKALINE PHOSPHATASE 64 U/L (46-116); ALT/SGPT 20 U/L (7.0-40); AST/SGOT 20 U/L (<34); BILIRUBIN,DIRECT 0.1 MG/DL (<0.4); BILIRUBIN,TOTAL 0.5 MG/DL (0.3-1.2); BLOOD UREA NITROGEN 14 MG/DL (9-23); CALCIUM LEVEL 9.4 MG/DL (8.5-10.1); CARBON DIOXIDE LEVEL 25 MMOL/L (20-31); CHLORIDE LEVEL 107 MMOL/L (98-107); CREATININE FOR GFR 0.54 MG/DL (0.55-1.30); GLOMERULAR FILTRATION RATE > 60.0 (>60); GLUCOSE, FASTING 90 MG/DL (60-100); MAGNESIUM LEVEL 1.8 MG/DL (1.8-2.4); POTASSIUM SERUM 4.3 MMOL/L (3.5-5.1); SODIUM LEVEL 139 MMOL/L (136-145)
[2023-06-11 13:51] LABS: THYROID STIMULATING HORMONE 1.428 uIU/ML (0.55-4.78)
[2023-06-11 13:55] LABS: CPK CREATINE PHOSPHOKINASE 65 U/L (34-145); MB/CK RELATIVE INDEX 1.53 (< OR =4)
[2023-06-11 14:30] VITALS: BP 129/76
[2023-06-11 14:38] VITALS: O2SAT 99
[2023-06-11 14:47] VITALS: TEMP 97.9
== END 2023-06-11 14:56 | disposition home or self-care (01) ==
LOC: M ED 12:08
DX: R00.2 Palpitations (principal); R41.9 Unspecified symptoms and signs involving cognitive functions and awareness; Z98.84 Bariatric surgery status; Z79.899 Other long term (current) drug therapy; Z88.8 Allergy status to other drugs, medicaments and biological substances; Z91.018 Allergy to other foods

== ENCOUNTER → 2023-08-03 | Outpatient (REF) | LOC: M EMP 08:12 | PROVIDERS: ATTEND Family Medicine | DX: Z11.52 Encounter for screening for COVID-19 (principal) ==

== ENCOUNTER → 2023-08-26 | Outpatient (REF) | payer BC ==
[2023-08-26 17:37] LABS: BASO % 0.5 % (0.0-1.0); EOS # 0.1 10^3/uL (0.0-0.5); EOS % 1.9 % (0.0-3.0); HEMOGLOBIN 12.6 g/dl (12.0-15.5); LYMPH # 2.8 10^3/uL (1.5-5.0); LYMPH % 37.3 % (24.0-44.0); MEAN CORPUSCULAR HEMOGLOBIN 30.7 pg (27.0-33.0); MEAN CORPUSCULAR HGB CONC 32.3 g/dl (32.0-36.5); MEAN CORPUSCULAR VOLUME 94.9 fl (80.0-96.0); MONO # 0.6 10^3/uL (0.0-0.8); MONO % 7.5 % (2.0-8.0); NEUTROPHILS % 52.7 % (36.0-66.0); PLATELET COUNT, AUTOMATED 263 10^3/uL (150-450); RED BLOOD COUNT 4.11 10^6/uL (4.00-5.40); WHITE BLOOD COUNT 7.6 10^3/uL (4.0-10.0)
[2023-08-26 17:41] LABS: HEMATOCRIT 38.3 % (36.0-47.0)
[2023-08-26 18:13] LABS: ALBUMIN 3.8 G/DL (3.2-5.2); ALKALINE PHOSPHATASE 67 U/L (46-116); ALT/SGPT 18 U/L (7.0-40); AST/SGOT 17 U/L (<34); BILIRUBIN,TOTAL 0.4 MG/DL (0.3-1.2); BLOOD UREA NITROGEN 12 MG/DL (9-23); CALCIUM LEVEL 9.7 MG/DL (8.5-10.1); CARBON DIOXIDE LEVEL 27 MMOL/L (20-31); CHLORIDE LEVEL 105 MMOL/L (98-107); CREATININE FOR GFR 0.59 MG/DL (0.55-1.30); GLOMERULAR FILTRATION RATE > 60.0 (>60); GLUCOSE, FASTING 82 MG/DL (60-100); IRON (FE) 44 UG/DL (50-170); MAGNESIUM LEVEL 1.9 MG/DL (1.8-2.4); PERCENT SATURATION 14.9 % (13.2-45.0); PHOSPHORUS LEVEL 4.1 MG/DL (2.5-4.9); POTASSIUM SERUM 3.8 MMOL/L (3.5-5.1); SODIUM LEVEL 139 MMOL/L (136-145); TOTAL IRON BINDING CAPACITY 295 UG/DL (250-425); TOTAL PROTEIN 6.6 G/DL (5.7-8.2)
[2023-08-26 18:14] LABS: FERRITIN 21.1 NG/ML (7.3-270.7); TOTAL 25(OH) VITAMIN D 61.2 NG/ML (20.0-100.0)
[2023-08-26 18:15] LABS: VITAMIN B12 LEVEL 1324 PG/ML (211-911)
[2023-08-26 18:53] LABS: HEMOGLOBIN A1c 4.8 % (4.0-6.0)
== END ==
LOC: M LAB REF 16:33
PROVIDERS: ATTEND Surgery
DX: K91.2 Postsurgical malabsorption, not elsewhere classified (principal); Z98.84 Bariatric surgery status; E55.9 Vitamin D deficiency, unspecified; Z86.39 Personal history of other endocrine, nutritional and metabolic disease

== ENCOUNTER 2023-11-11 12:34 | Emergency (ER) | payer OTHER, BC ==
[~2023-11-11] VITALS: Ht 172.7 cm; Wt 90.3 kg
[~2023-11-11 12:34] MED LIST changes: +RALTEGRAVIR 400 MG TAB (ISENTRESS) PO SCH; +TRUVADA 200MG/300MG TABLET PO SCH
[2023-11-11] MEDS ORDERED: VITMTA PO (12:47)
[2023-11-11] MEDS ORDERED: B-12100010 PO (12:47)
[2023-11-11] MEDS ORDERED: EXPOSURE KIT-ADULT 7 DAY SUPPLY PO ONE (13:00)
[2023-11-11] MEDS ORDERED: RALT40TA PO (13:02)
[2023-11-11] MEDS ORDERED: EMTR1TAB16 PO (13:02)
[2023-11-11] MEDS ORDERED: RALTEGRAVIR 400 MG TAB (ISENTRESS) PO ONE (13:15)
[2023-11-11] MEDS ORDERED: TRUVADA 200MG/300MG TABLET PO ONE (13:15)
[2023-11-11 13:29] LABS: BASO % 0.5 % (0.0-1.0); EOS # 0.2 10^3/uL (0.0-0.5); EOS % 2.7 % (0.0-3.0); HEMATOCRIT 38.1 % (36.0-47.0); HEMOGLOBIN 12.2 g/dl (12.0-15.5); LYMPH # 2.3 10^3/uL (1.5-5.0); LYMPH % 38.3 % (24.0-44.0); MEAN CORPUSCULAR HEMOGLOBIN 30.3 pg (27.0-33.0); MEAN CORPUSCULAR VOLUME 94.5 fl (80.0-96.0); MONO # 0.5 10^3/uL (0.0-0.8); NEUTROPHILS % 49.3 % (36.0-66.0); PLATELET COUNT, AUTOMATED 222 10^3/uL (150-450); RED BLOOD COUNT 4.03 10^6/uL (4.00-5.40)
[2023-11-11 13:44] VITALS: BP 123/81; TEMP 97.7; O2SAT 100
[2023-11-11 14:06] LABS: ALBUMIN 3.8 G/DL (3.2-5.2); ALKALINE PHOSPHATASE 60 U/L (46-116); ALT/SGPT 25 U/L (7.0-40); AST/SGOT 15 U/L (<34); BILIRUBIN,TOTAL 0.5 MG/DL (0.3-1.2); BLOOD UREA NITROGEN 14 MG/DL (9-23); CALCIUM LEVEL 9.3 MG/DL (8.5-10.1); CARBON DIOXIDE LEVEL 28 MMOL/L (20-31); CHLORIDE LEVEL 107 MMOL/L (98-107); CREATININE FOR GFR 0.57 MG/DL (0.55-1.30); GLOMERULAR FILTRATION RATE > 60.0 (>60); GLUCOSE, FASTING 80 MG/DL (60-100); POTASSIUM SERUM 3.8 MMOL/L (3.5-5.1); SODIUM LEVEL 141 MMOL/L (136-145); TOTAL PROTEIN 6.5 G/DL (5.7-8.2)
[2023-11-11 14:08] LABS: HCG, SERUM QUALITATIVE NEGATIVE (NEGATIVE)
[2023-11-11 14:09] LABS: HEPATITIS B SURFACE ANTIBODY POSITIVE (POSITIVE)
[2023-11-11 14:34] LABS: HIV SCREEN CENTAUR EXPOSED NEGATIVE (NEGATIVE)
[2023-11-11 14:42] LABS: HEPATITIS C VIRUS ABY INDEX 0.05 INDEX (<0.8)
== END 2023-11-11 13:50 | disposition home or self-care (01) ==
LOC: M ED 12:34
DX: Z77.21 Contact with and (suspected) exposure to potentially hazardous body fluids (principal); W46.0XXA Contact with hypodermic needle, initial encounter; Y92.9 Unspecified place or not applicable; Y93.89 Activity, other specified; Y99.0 Civilian activity done for income or pay; Z91.018 Allergy to other foods; Z88.1 Allergy status to other antibiotic agents

== ENCOUNTER → 2024-01-18 | Outpatient (REF) | payer OTHER, BC ==
[~2024-01-18] MED LIST changes: +B-12100010 PO; +EMTR1TAB16 PO; +RALT40TA PO; -RALTEGRAVIR 400 MG TAB (ISENTRESS) PO SCH; -TRUVADA 200MG/300MG TABLET PO SCH; +VITMTA PO
== END ==
LOC: M LAB REF 16:26
PROVIDERS: ATTEND Physician Assistant
DX: J02.9 Acute pharyngitis, unspecified (principal)

== ENCOUNTER → 2024-02-23 | Outpatient (REF) | payer BC ==
[2024-02-23 13:14] LABS: HEMATOCRIT 41.6 % (36.0-47.0); HEMOGLOBIN 13.4 g/dl (12.0-15.5); MEAN CORPUSCULAR HEMOGLOBIN 30.7 pg (27.0-33.0); MEAN CORPUSCULAR HGB CONC 32.2 g/dl (32.0-36.5); MEAN CORPUSCULAR VOLUME 95.2 fl (80.0-96.0); PLATELET COUNT, AUTOMATED 243 10^3/uL (150-450); RED BLOOD COUNT 4.37 10^6/uL (4.00-5.40); WHITE BLOOD COUNT 6.6 10^3/uL (4.0-10.0)
[2024-02-23 13:19] LABS: HEMATOCRIT 41.6 % (36.0-47.0)
[2024-02-23 13:33] LABS: IRON (FE) 91 UG/DL (50-170); PERCENT SATURATION 28.5 % (13.2-45.0); TOTAL IRON BINDING CAPACITY 319 UG/DL (250-425)
[2024-02-23 13:34] LABS: ALBUMIN 4.3 G/DL (3.2-5.2); ALKALINE PHOSPHATASE 68 U/L (46-116); ALT/SGPT 23 U/L (7.0-40); AST/SGOT 15 U/L (<34); BILIRUBIN,TOTAL 0.7 MG/DL (0.3-1.2); BLOOD UREA NITROGEN 15 MG/DL (9-23); CALCIUM LEVEL 9.9 MG/DL (8.5-10.1); CARBON DIOXIDE LEVEL 28 MMOL/L (20-31); CHLORIDE LEVEL 106 MMOL/L (98-107); CREATININE FOR GFR 0.63 MG/DL (0.55-1.30); GLOMERULAR FILTRATION RATE > 60.0 (>60); GLUCOSE, FASTING 79 MG/DL (60-100); MAGNESIUM LEVEL 1.9 MG/DL (1.8-2.4); PHOSPHORUS LEVEL 3.7 MG/DL (2.5-4.9); POTASSIUM SERUM 3.9 MMOL/L (3.5-5.1); SODIUM LEVEL 141 MMOL/L (136-145); TOTAL PROTEIN 7.5 G/DL (5.7-8.2)
[2024-02-23 13:37] LABS: FERRITIN 22.8 NG/ML (7.3-270.7); HEMOGLOBIN A1c 4.9 % (4.0-6.0); TOTAL 25(OH) VITAMIN D 44.6 NG/ML (20.0-100.0)
[2024-02-23 13:38] LABS: VITAMIN B12 LEVEL 1076 PG/ML (211-911)
== END ==
LOC: M LAB REF 12:35
PROVIDERS: ATTEND Physician Assistant Surgical
DX: Z98.84 Bariatric surgery status (principal)

== ENCOUNTER → 2024-05-31 | Outpatient (REF) | payer BC ==
[~2024-05-31] MED LIST changes: +ONDA-282 PO; -ONDA4TAB6 PO
== END ==
LOC: M LAB REF 16:14
PROVIDERS: ATTEND Student in an Organized Health Care Education/Training Program
DX: R30.0 Dysuria (principal)

== ENCOUNTER → 2024-06-08 | Outpatient (REF) | payer BC | LOC: M LAB REF 16:13 | PROVIDERS: ATTEND Advanced Practice Midwife | DX: R30.0 Dysuria (principal) ==

== ENCOUNTER 2024-06-17 09:01 | Emergency (ER) | payer BC ==
[~2024-06-17] VITALS: Ht 172.7 cm; Wt 84.5 kg
[2024-06-17 09:01] VITALS: BP 121/76; TEMP 99.4; O2SAT 100
== END 2024-06-17 11:06 | disposition left against medical advice (07) ==
LOC: M ED 09:01
DX: Z53.21 Procedure and treatment not carried out due to patient leaving prior to being seen by health care provider (principal)

== ENCOUNTER → 2024-09-18 | Outpatient (REF) | payer BC | LOC: M SFHCDERM 08:03 | PROVIDERS: ATTEND Physician Assistant | DX: D23.5 Other benign neoplasm of skin of trunk (principal) ==

== ENCOUNTER → 2025-02-02 | Outpatient (REF) | payer BC, OTHER ==
[2025-02-02 12:54] LABS: IRON (FE) 110 UG/DL (50-170); PERCENT SATURATION 31.3 % (13.2-45.0); PHOSPHORUS LEVEL 3.4 MG/DL (2.5-4.9); TOTAL IRON BINDING CAPACITY 351 UG/DL (250-425)
[2025-02-02 12:58] LABS: FERRITIN 10.6 NG/ML (7.3-270.7); TOTAL 25(OH) VITAMIN D 35.8 NG/ML (20.0-100.0)
[2025-02-02 12:59] LABS: FOLATE > 24.0 NG/ML (>5.4)
[2025-02-02 13:00] LABS: VITAMIN B12 LEVEL 883 PG/ML (211-911)
== END ==
LOC: M LAB REF 11:45
PROVIDERS: ATTEND Physician Assistant Medical
DX: Z98.84 Bariatric surgery status (principal)

== ENCOUNTER → 2025-07-12 | Outpatient (REF) | payer BC ==
[~2025-07-12] MED LIST changes: +BIOT1CAP3 PO; +CALC250T PO; +MULT-90 PO; +ZINC220CA PO
[2025-07-12 17:41] LABS: APPEARANCE, URINE HAZY (CLEAR); BACTERIA, URINE AUTO 1+ (NEGATIVE); BILIRUBIN, URINE AUTO NEGATIVE (NEGATIVE); BLOOD, URINE BLOOD 1+ (NEGATIVE); GLUCOSE, URINE (UA) AUTO NEGATIVE (NEGATIVE); KETONE, URINE AUTO NEGATIVE (NEGATIVE); LEUKOCYTE ESTERASE, URINE AUTO 3+ (NEGATIVE); MUCUS, URINE SMALL (NEGATIVE); NITRITE, URINE AUTO NEGATIVE (NEGATIVE); PROTEIN, URINE AUTO 1+ mg/dL (NEGATIVE); RBC, URINE AUTO 1 /HPF (0-3); SPECIFIC GRAVITY URINE AUTO 1.005 (1.002-1.035); SQUAMOUS EPITHELIAL CELL UR AU 0 /HPF (0-6); UROBILINOGEN, URINE AUTO 0.2 mg/dL (0.0-2.0); WBC, URINE AUTO 42 /HPF (0-3)
== END ==
LOC: M LAB REF 17:12
PROVIDERS: ATTEND Physician Assistant
DX: N39.0 Urinary tract infection, site not specified (principal)

== ENCOUNTER 2025-07-24 08:38 | Day surgery (SDC) | payer OTHER ==
[~2025-07-24] VITALS: Ht 172.7 cm; Wt 90.4 kg
[~2025-07-24 08:38] MED LIST changes: +LIDOCAINE 2% 100 MG/5 ML SDV (FOR ANES.) As Ordered ONE; +MIDAZOLAM INJ 2 MG/2 ML VIAL As Ordered ONE; +ROCURONIUM BROMIDE 50MG/5ML VIAL As Ordered ONE
[2025-07-24] MEDS ORDERED: LR 1,000 ML IV SCH ×2 (09:10→11:00)
[2025-07-24] MEDS: OXYMETAZOLINE 0.05% NASAL SPRAY As Ordered ONE (10:09)
[2025-07-24] MEDS ORDERED: ACETAMINOPHEN 1000MG/100ML IV BAG As Ordered ONE (10:41)
[2025-07-24] MEDS ORDERED: dexAMETHasone 4 MG/ML 1 ML VIAL As Ordered ONE (10:48)
[2025-07-24] MEDS ORDERED: SUGAMMADEX SODIUM 500 MG/5 ML VIAL As Ordered ONE (10:48)
[2025-07-24] MEDS ORDERED: ONDANSETRON 4MG 2ML VIAL As Ordered ONE (10:48)
[2025-07-24] MEDS ORDERED: HYDROMORPHONE HCL 0.5 MG/0.5 ML SYRINGE IV PRN (11:00)
[2025-07-24] MEDS: ONDANSETRON 4MG 2ML VIAL IV PRN (11:23)
[2025-07-24 11:45] VITALS: BP 123/73; TEMP 97.2; O2SAT 100
== END 2025-07-24 12:19 | disposition home or self-care (01) ==
LOC: M SDC 08:38
PROVIDERS: ATTEND Otolaryngology
DX: J35.01 Chronic tonsillitis (principal); Z88.1 Allergy status to other antibiotic agents; Z91.018 Allergy to other foods; Z88.6 Allergy status to analgesic agent; J45.909 Unspecified asthma, uncomplicated; Z90.49 Acquired absence of other specified parts of digestive tract; Z98.84 Bariatric surgery status; F17.210 Nicotine dependence, cigarettes, uncomplicated
CPT/HCPCS: 42826; 88302; J0131; J1100; J2250; J2405; J2765; J3010

== ENCOUNTER 2025-08-01 14:18 | Day surgery (SDC) | payer OTHER ==
[~2025-08-01] VITALS: Ht 175.3 cm; Wt 86.2 kg
[~2025-08-01 14:18] MED LIST changes: -LIDOCAINE 2% 100 MG/5 ML SDV (FOR ANES.) As Ordered ONE; -MIDAZOLAM INJ 2 MG/2 ML VIAL As Ordered ONE; -ROCURONIUM BROMIDE 50MG/5ML VIAL As Ordered ONE
[2025-08-01] MEDS ORDERED: LIDOCAINE 2% 100 MG/5 ML SDV (FOR ANES.) As Ordered ONE (14:25)
[2025-08-01] MEDS ORDERED: SUCCINYLCHOLINE 100MG/5ML SYRINGE As Ordered ONE (14:25)
[2025-08-01] MEDS ORDERED: dexAMETHasone 4 MG/ML 1 ML VIAL As Ordered ONE (14:25)
[2025-08-01] MEDS ORDERED: ONDANSETRON 4MG 2ML VIAL As Ordered ONE (14:26)
[2025-08-01] MEDS ORDERED: MIDAZOLAM INJ 2 MG/2 ML VIAL As Ordered ONE (14:28)
[2025-08-01] MEDS ORDERED: ROCURONIUM BROMIDE 50MG/5ML VIAL As Ordered ONE (14:29)
[2025-08-01] MEDS: OXYMETAZOLINE 0.05% NASAL SPRAY As Ordered ONE (14:35)
[2025-08-01] MEDS ORDERED: PRED20TA PO (14:38)
[2025-08-01] MEDS ORDERED: ACET-897 PO (14:38)
[2025-08-01] MEDS ORDERED: OXYC1TAB23 PO (14:38)
[2025-08-01] MEDS: ONDANSETRON 4MG 2ML VIAL IV PRN (15:32)
[2025-08-01] MEDS: HYDROMORPHONE HCL 0.5 MG/0.5 ML SYRINGE IV PRN (15:33)
[2025-08-01] MEDS ORDERED: LR 1,000 ML IV SCH (15:50)
[2025-08-01] MEDS ORDERED: HYDROcodone/APAP LIQUID 7.5-325 MG 15 ML UDC PO PRN (15:55)
[2025-08-01 16:43] VITALS: BP 143/80; TEMP 97.8; O2SAT 100
== END 2025-08-01 16:45 | disposition home or self-care (01) ==
LOC: M SDC 14:18
PROVIDERS: ATTEND Otolaryngology
DX: J95.830 Postprocedural hemorrhage of a respiratory system organ or structure following a respiratory system procedure (principal); Z98.84 Bariatric surgery status; Z98.51 Tubal ligation status; Z88.1 Allergy status to other antibiotic agents
CPT/HCPCS: 42960; J0330; J0665; J1100; J1171; J2250; J2405; J3010